=== PATIENT | female | born 1995 | race Caucasian/White ===

== ENCOUNTER 2018-05-29 18:13 | Emergency (ER) | payer MEDICAID, SELFPAY ==
[2018-05-29 18:23] VITALS: BP 110/82; PULSE 139; RESP 20; TEMP 37.6; O2SAT 99
[2018-05-29] MEDS: Ondansetron 4 MG/2 ML VIAL (18:38)
[2018-05-29 18:53] VITALS: RESP 20
--- NOTE | 2018-05-29 19:06 | W.ED.GENAD ---
Discharge Plan Disposition Patient Disposition: HOME Condition: Improving Discharge Details Chief Complaint: GenMedical Clinical Impression: Influenza, Myalgia Primary Care Provider: Robert Celis ED Provider: Samantha Romero Home Meds and New Rx's Prescriptions: Continued epinephrine [EpiPen 2-Steve] 0.3 mg/0.3 mL auto-injector 0.3 mg IM ONCE PRN (Reason: anaphylaxis) Qty: 2 RF: 0 oseltamivir [Tamiflu] 75 mg capsule 75 mg PO BID 5 Days Qty: 10 RF: 0 famotidine 40 MG tablet 40 mg PO BID 30 Days Qty: 30 RF: 5 garlic 1 EACH tablet 1 tab PO DAILY RF: 0 acetaminophen [Tylenol] 325 MG tablet 650 mg PO Q4H PRN PRNRF: 0 diphenhydramine HCl 25 MG capsule 25 mg PO PRN PRNRF: 0 No Action ondansetron HCl 4 mg tablet 4 mg PO BID-TID PRN (Reason: nausea and vomiting) Qty: 14 RF: 0 Discharge Instructions Instructions: Influenza (ED) Additional Instructions: Drink plenty of fluids and get plenty of rest. Alternate Tylenol and Motrin as needed and directed for pain. Limit your Motrin use as directed by her doctor. Follow-up with primary care doctor in 1 week for reevaluation. Return immediately to the emergency department any worsening or concerning symptoms. 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 Patient states she was seen at her primary care doctor's office Dr. Galileo stanford and was tested and diagnosed with the flu and sent home with prescription for Tamiflu. Patient is complaining of allover body pain, and her head her back her knees. Patient denies any known fever but admits to chills. Heart rate tachycardic 120s. Afebrile. Patient appears nontoxic and in no acute distress. Normal ENT exam. Lungs clear to auscultation. Abdomen soft nontender. No meningeal signs. Discussed with patient that with a flu diagnosis, she can expect myalgias and body aches for several days to a week or more. Patient states she took Tylenol today for pain. She states with her history of kidney reflux she can take Motrin but she tries to limit it to 2 doses daily. Will give a dose of Toradol, bolus IV fluids and discharge to home. 1999 -- Patient feels much better and is requesting to go home. HR improved to 110s, and she developed a fever 101.5 and was given tylenol prior to discharge. She ambulated easily out of the ED. Instructed on the importance of rest, fluids, Tylenol and Motrin. Instructed to follow-up with her primary care doctor and return here at any time if worse. test negative. HPI General Mode of arrival: ambulatory. Date/Time Provider Initiated Documentation: 05/29/18 18:55. Limitations to Documentation: no limitations. Information obtained by: patient. HPI Narrative: Pt is a 22yo F w/ a h/o kidney reflux at age 8 who was diagnosed with the flu at her PCP office today who presents for body aches. Patient states she woke up at 4 AM with tactile fevers and chills, cough and sore throat. She followed up with her PCP office and was tested and diagnosed with the flu. She states her pain is mainly in her head, back, knees but is generally all over her body. She admits to vomiting one time in the ER. Patient denies chest pain, shortness of breath, diarrhea or urinary symptoms. Patient states she took Tamiflu per her PCP and a dose of Tylenol but no Motrin today. Related Data Home Medications Medication Instructions Recorded Confirmed garlic 1 tab PO DAILY 02/14/17 05/29/18 famotidine 40 mg PO BID 30 Days #30 tab 08/15/17 05/29/18 acetaminophen [Tylenol] 650 mg PO Q4H PRN PRN 10/02/17 05/29/18 diphenhydramine HCl 25 mg PO PRN PRN 11/20/17 05/29/18 epinephrine 0.3 mg/0.3 mL 0.3 mg IM ONCE PRN #2 each 04/11/18 05/29/18 injection, auto-injector oseltamivir 75 mg capsule 75 mg PO BID 5 Days #10 cap 05/29/18 05/29/18 ondansetron HCl 4 mg tablet 4 mg PO BID-TID PRN #14 tab 05/30/18 05/30/18 Previous Rx's Medication Instructions Recorded famotidine 40 mg PO BID 30 Days #30 tab 08/15/17 epinephrine 0.3 mg/0.3 mL 0.3 mg IM ONCE PRN #2 each 04/11/18 injection, auto-injector oseltamivir 75 mg capsule 75 mg PO BID 5 Days #10 cap 05/29/18 ondansetron HCl 4 mg tablet 4 mg PO BID-TID PRN #14 tab 05/30/18 Allergies Allergy/AdvReac Type Severity Reaction Status Date / Time codeine Allergy Severe Hives Verified 05/29/18 11:55 kiwi Allergy Intermediate Verified 05/29/18 11:55 ciprofloxacin [From Cipro] AdvReac Intermediate vomiting Verified 05/29/18 11:55 General Stated Complaint: GenMedical JOSELIN: 3 Review of Systems Review of Systems All systems reviewed & are unremarkable except as noted in HPI and below Constitutional Reports as per HPI, Reports body ache(s), Denies chills and Denies fever(s) Eyes Denies blurry vision ENT Denies dizziness, Denies sore throat and Denies throat swelling Cardiovascular Denies chest pain and Denies dyspnea Respiratory Denies cough and Denies dyspnea Gastrointestinal Denies abdominal pain, Denies diarrhea and Denies vomiting Genitourinary Denies hematuria and Denies dysuria Musculoskeletal Denies back pain and Denies numbness Integumentary/Breasts Denies lesions and Denies rash Neurologic Denies dizziness, Denies focal weakness and Denies numbness Allergic/Immunologic Denies throat swelling [facility] Medical History Congenital mssgcq-cyuxwpl-dvqii reflux (Acute) Family History Mother Depression Hyperlipidemia Father Depression Brother No problems noted. Maternal Grandfather Heart disease Maternal Grandmother Heart disease Social History current occupational status: employed current occupation: [employer] pets and animals: Yes pets and animals: cat(s) and dog(s) frequency: 3-4 times per week duration: 30-45 minutes/day Smoking/Tobacco Use Status: Never alcohol intake: current alcohol intake frequency: 0-2 drinks per day Alcohol type: beer and hard liquor substance use type: does not use candis/mosque: No preference special candis needs: No Exam Const General: cooperative, healthy appearing and no acute distress HENMT Head: normal to inspection Ears: hearing grossly normal bilaterally and TM's normal bilaterally General nose exam: external nose normal Face and sinus: normal facial exam Mouth: oral mucosae normal Throat: posterior oropharynx normal Eyes General: appearance normal, both eyes and all related structures EOM: EOM intact bilaterally Neck Neck: normal visual inspection and No submandibular swelling Lymphatic: no lymphadenopathy noted Chest Chest: normal inspection of the chest and no tenderness Resp Effort & Inspection: normal respiratory effort and able to speak in complete sentences Auscultation: clear to auscultation bilaterally Cardio Rate: regular rate Rhythm: regular rhythm GI Inspection: normal to inspection Palpation: soft, not firm, not rigid and nontender Auscultation: normal bowel sounds Skin General skin exam: no rashes or lesions noted Neuro General: alert, awake, oriented x3, no meningeal signs and no focal motor deficits Cognition: normal cognition Speech: speech normal Motor: muscle tone normal throughout Sensory Exam: no sensory deficits noted Extrem General: normal to inspection, full ROM, normal capillary refill and no edema Psych Appearance: grossly normal Mental Status: mental status grossly normal Speech and Movement: speech and movement normal Affect: normal affect Course Vital Signs Temperature 99.7 F H 05/29/18 18:23 Pulse 139 H 05/29/18 18:23 Respiratory Rate 20 05/29/18 18:23 Blood Pressure 110/82 05/29/18 18:23 Pulse Oximetry 99 05/29/18 18:23 Temperature 99.7 F H 05/29/18 18:23 Temperature Source Temporal Artery Scan 05/29/18 18:23 Pulse 139 H 05/29/18 18:23 Respiratory Rate 20 05/29/18 18:53 Respiratory Effort 05/29/18 18:59 Respiratory Depth Normal 05/29/18 18:53 Respiratory Pattern Normal 05/29/18 18:53 Blood Pressure 110/82 05/29/18 18:23 Blood Pressure Position Sitting 05/29/18 18:23 Pulse Oximetry 99 05/29/18 18:23 Oxygen Delivery Method Room Air 05/29/18 18:23 Oxygen Flow Rate 0 05/29/18 18:23
[2018-05-29] MEDS: Normal Saline 1,000 ML 1000 ML IV (19:15)
[2018-05-29] MEDS: Ketorolac 30 MG/ML VIAL IVP (19:49)
[2018-05-29] MEDS: Acetaminophen 325 MG TAB 650 MG PO (20:18)
[2018-05-29 20:25] VITALS: BP 109/51; PULSE 112; RESP 18; TEMP 38.6; O2SAT 95
== END 2018-05-29 20:24 | disposition home or self-care (01) ==
PROVIDERS: Emergency Provider Physician Assistant; PCP Family Medicine
DX: J10.89 Influenza due to other identified influenza virus with other manifestations (principal); M79.18 Myalgia, other site
CPT/HCPCS: 96361; 96374; 99284; J1885; J2405

== ENCOUNTER 2018-08-27 16:40 | Outpatient (CLI) | payer MEDICAID, SELFPAY ==
--- NOTE | 2018-08-27 10:20 | DI.RAD_ITS ---
SYMPTOM/DIAGNOSIS: CONTUSION RT 5TH METACARPAL, ? FX, S69.90XA RIGHT HAND: Three views. No acute or healing fracture or dislocation is identified. No bone or joint abnormality is seen. The soft tissues are unremarkable. IMPRESSION: No acute abnormality.
== END 2018-08-27 17:00 ==
PROVIDERS: PCP Family Medicine; Visit Provider Family Medicine
DX: S60.221A Contusion of right hand, initial encounter (principal)
CPT/HCPCS: 73130

== ENCOUNTER 2020-06-25 06:17 | Emergency (ER) | payer BC, SELFPAY ==
--- NOTE | 2020-06-25 06:20 | W.ED.GENAD ---
Discharge Plan Disposition Patient Disposition: HOME Condition: Good Discharge Details Clinical Impression: Low back pain Primary Care Provider: Robert Celis ED Provider: Daniel Osorio [place] Meds and New Rx's Prescriptions: New lidocaine 5 % adhesive patch,medicated 1 patch topical DAILY Qty: 15 RF: 0 Continued epinephrine [EpiPen 2-Steve] 0.3 mg/0.3 mL auto-injector 0.3 mg IM ONCE PRN (Reason: anaphylaxis) Qty: 2 RF: 0 omeprazole magnesium [Prilosec OTC] 20 mg tablet,delayed release (DR/EC) 20 mg PO DAILY Qty: 90 RF: 3 garlic 1 EACH tablet 1 tab PO DAILY RF: 0 sulfamethoxazole-trimethoprim 800-160 mg tablet 1 tab PO Q12H RF: 0 acetaminophen [Tylenol] 325 MG tablet 650 mg PO Q4H PRN PRNRF: 0 diphenhydramine HCl 25 MG capsule 25 mg PO PRN PRNRF: 0 Discharge Instructions Instructions: Low Back Strain (ED) Additional Instructions: Continue Tylenol for pain. Try the lidocaine patches, moist heat, stretching and gentle massage. Follow-up with primary care next week if not improving. Return to ED for bladder or bowel dysfunction, numbness, weakness, abdominal pain, fever. Referrals: Robert Celis [Primary Care Provider] - Medical Decision Making Patient with no CVAT. Pain is much lower and muscular in nature. No spinal tenderness. No neuro symptoms. Continue Tylenol. We will try lidocaine patches. Moist heat, stretching, gentle massage. Follow-up with primary care next week if not improving. Return to ED for any fever, abdominal pain, neurologic changes. HPI General Mode of arrival: ambulatory. Date/Time Provider Initiated Documentation: 06/25/20 06:19. Limitations to Documentation: no limitations. Information obtained by: patient and RN notes reviewed. HPI Narrative: Patient presents to the ED with low back pain. Patient reports slipping and falling about a week ago. She has had increased pain across the lower back that is worse with movement and prolonged sitting. She is also being treated for UTI and is a little concerned that the back pain is related to kidney problems. She denies any fever, abdominal pain, vomiting. She denies any bladder or bowel dysfunction, numbness, weakness. Pain is low across the pelvis brim and worse on the left. Related Data Home Medications Medication Instructions Recorded Confirmed garlic 1 tab PO DAILY 02/14/17 06/25/20 acetaminophen [Tylenol] 650 mg PO Q4H PRN PRN 10/02/17 06/25/20 diphenhydramine HCl 25 mg PO PRN PRN 11/20/17 06/25/20 epinephrine 0.3 mg/0.3 mL 0.3 mg IM ONCE PRN #2 each 04/11/18 06/25/20 injection, auto-injector omeprazole magnesium 20 mg 20 mg PO DAILY #90 tab 06/18/20 06/25/20 tablet,delayed release lidocaine 1 patch TOPICAL DAILY #15 ea 06/25/20 sulfamethoxazole-trimethoprim 1 tab PO Q12H 06/25/20 06/25/20 Previous Rx's Medication Instructions Recorded epinephrine 0.3 mg/0.3 mL 0.3 mg IM ONCE PRN #2 each 04/11/18 injection, auto-injector omeprazole magnesium 20 mg 20 mg PO DAILY #90 tab 06/18/20 tablet,delayed release lidocaine 1 patch TOPICAL DAILY #15 ea 06/25/20 Allergies Allergy/AdvReac Type Severity Reaction Status Date / Time codeine Allergy Severe Hives Verified 06/25/20 06:29 kiwi Allergy Intermediate Verified 06/25/20 06:29 ciprofloxacin [From Cipro] AdvReac Intermediate vomiting Verified 06/25/20 06:29 General JOSELIN: 3 Review of Systems Narrative: As documented in HPI otherwise negative as below. Const: no fever, chills, weakness Resp: no cough, SOB, pleuritic pain CV: no CP, diaphoresis, edema, syncope GI: no abdominal pain, nausea, vomiting, diarrhea Neuro: no headache, numbness, focal weakness, confusion [facility] Medical History Congenital zopuhd-fgsodko-czxxo reflux Migraine with aura and without status migrainosus Family History (Updated 03/15/19 @ 09:15 by Neal Meade) Mother Depression Hyperlipidemia Father Depression Brother Asthma ADHD Maternal Grandfather Heart disease Maternal Grandmother Heart disease Brother Autism Paternal Grandfather No problems noted. Paternal Grandmother Glaucoma Social History Smoking/Tobacco Use Status: Never Smoking risk assessment performed?: Yes Alcohol Intake: current Alcohol Intake frequency: holidays/special occasions only Alcohol type: beer and hard liquor Substance use type: does not use Caregiver/Support person: No Household members: spouse and significant other Housing: house Communication Needs: None current occupation: [employer] Pets and animals: Yes Pets and animals: cat(s) and dog(s) Sexually active: Yes Do you think of yourself as: straight/heterosexual Current gender identity: female What is your relationship status?: living with partner How often do you talk on the phone with friends or family?: three or more times per week How often do you get together with friends or relatives?: three or more times per week How often do you attend scientology or yarsani services?: decline to answer Do you belong to any clubs or organized social groups?: yes Panel score (0-1 are the most socially isolated patients): 3 What type of physical activity do you participate in: walking Duration: 30-45 minutes/day Frequency: 3-4 times per week Kendal/Jain: No preference Special kendal needs: No Seatbelt use: always Helmet use: Yes Helmet use: always Drive intox or ride w/intox locomotive driver: No Do you feel safe at home: Yes Do you feel safe in your relationship?: Yes Exam Narrative Exam Narrative: Const: WDWN female in NAD. HEENT: NC/AT. Normal facial exam. Eyes: Normal conjunctiva and sclera. Neck: Supple. Trachea midline. Lungs: Normal respiratory effort. Back: No CVAT. No midline spinal tenderness. Tenderness across the lower lumbar region left greater than right. Decreased range of motion due to pain. No bruising noted. Neuro: A+O x 3. Normal speech, mentation, gait. Cranial nerves II - XII grossly intact. No gross motor or sensory deficit.
[2020-06-25 06:22] VITALS: BP 139/82; PULSE 98; RESP 14; TEMP 36.5; O2SAT 96
[2020-06-25] MEDS: Lidocaine 5% Patch 1 PATCH TP (06:48)
== END 2020-06-25 06:55 | disposition home or self-care (01) ==
PROVIDERS: Emergency Provider Emergency Medicine; PCP Family Medicine
DX: M54.5 Low back pain (principal)
CPT/HCPCS: 99282

== ENCOUNTER 2020-07-19 10:07 | Emergency (ER) | payer BC, SELFPAY ==
[2020-07-19 10:12] VITALS: BP 139/92; PULSE 120; RESP 16; TEMP 36.8; O2SAT 97
--- NOTE | 2020-07-19 10:25 | W.ED.GENAD ---
Discharge Plan Disposition Patient Disposition: HOME Condition: Improving Discharge Details Clinical Impression: Pyelonephritis Primary Care Provider: Robert Celis ED Provider: Mendoza Gomez Home Meds and New Rx's Prescriptions: New cephalexin 500 mg capsule 500 mg PO TID 7 Days Qty: 21 RF: 0 Continued epinephrine [EpiPen 2-Steve] 0.3 mg/0.3 mL auto-injector 0.3 mg IM ONCE PRN (Reason: anaphylaxis) Qty: 2 RF: 0 omeprazole magnesium [Prilosec OTC] 20 mg tablet,delayed release (DR/EC) 20 mg PO DAILY Qty: 90 RF: 3 garlic 1 EACH tablet 1 tab PO DAILY RF: 0 acetaminophen [Tylenol] 325 MG tablet 650 mg PO Q4H PRN PRNRF: 0 diphenhydramine HCl 25 MG capsule 25 mg PO PRN PRNRF: 0 Discharge Instructions Instructions: Urinary Tract Infection in Women (ED) Additional Instructions: Home to rest today. Small, frequent sips of fluids to maintain good hydration. Please take Keflex as prescribed. Return if you have a fever, vomiting, or any other acute concerns. Discharge Data Discharge Date/Time-TO BE ENTERED AT DEPARTURE: 07/19/20 13:00 Medical Decision Making 25-year-old female presents from home with hours of achy back pain similar to previous urinary tract infections. She states she had a fever yesterday. She will note that she was tested for Covid yesterday due to close family member contact tracing. She arrives slightly tachycardic but pleasant and in no significant distress. She does have flank tenderness to percussion on exam. Screening laboratories including lactic acid and urinalysis obtained. Patient given ketorolac and 1 L of fluids. Consistent with developing pyelonephritis. Patient improved following fluids and ketorolac. She was given ceftriaxone 1 g and will be placed on Keflex. She understands homecare as well as return precautions. Lab Data Lab results reviewed: Yes I reviewed the patient's lab results. Labs: Laboratory Results - last 24 hr 07/19/20 07/19/20 07/19/20 10:38 10:38 10:38 WBC 4.50 RBC 4.91 Hgb 14.8 Hct 44.0 MCV 89.6 MCH 30.1 MCHC 33.6 RDW 11.5 L Plt Count 228 MPV 9.4 Immature Gran % 0.2 Neutrophils % 72.3 Lymphocytes % 13.1 Monocytes % 13.3 Eosinophils % 0.2 Basophils % 0.9 Nucleated RBC % 0 Absolute Neutrophils 3.25 Absolute Lymphocytes 0.59 L Absolute Monocytes 0.60 Absolute Eosinophils 0.01 Absolute Basophils 0.04 VBG Lactate 1.9 H Sodium 139 Potassium 3.5 Chloride 101 Carbon Dioxide 26.2 Anion Gap 11.8 H BUN 12 Creatinine 1.4 H Estimated GFR/1.73 m2 45.11 Glucose 129 H Calcium 8.8 Urine Color Urine Clarity Urine pH Ur Specific [place] Urine Protein Urine Ketones Urine Blood Urine Nitrite Urine Bilirubin Urine Urobilinogen Ur Leukocyte Esterase Urine RBC Urine WBC Ur Epithelial Cells Urine Crystals Urine Bacteria Urine Mucus Urine Other Ur Culture Indicated? Urine Glucose 07/19/20 11:25 WBC RBC Hgb Hct MCV MCH MCHC RDW Plt Count MPV Immature Gran % Neutrophils % Lymphocytes % Monocytes % Eosinophils % Basophils % Nucleated RBC % Absolute Neutrophils Absolute Lymphocytes Absolute Monocytes Absolute Eosinophils Absolute Basophils VBG Lactate Sodium Potassium Chloride Carbon Dioxide Anion Gap BUN Creatinine Estimated GFR/1.73 m2 Glucose Calcium Urine Color Yellow Urine Clarity Sl cloudy Urine pH 6.0 Ur Specific [place] 1.015 Urine Protein Negative Urine Ketones Negative Urine Blood Negative Urine Nitrite Negative Urine Bilirubin Negative Urine Urobilinogen 0.2 Ur Leukocyte Esterase Small H Urine RBC Not Applicable Urine WBC Not Applicable Ur Epithelial Cells Many Urine Crystals Not Applicable Urine Bacteria Not Applicable Urine Mucus Not Applicable Urine Other Many transitional Ur Culture Indicated? No/sq. contamination Urine Glucose Negative HPI General Mode of arrival: ambulatory. Date/Time Provider Initiated Documentation: 07/19/20 10:08. Limitations to Documentation: no limitations. Information obtained by: patient. History of Present Illness 25 year old F presents to the emergency department with the chief complaint of Left flank pain and body ache, Quality is described as aching, dull and constant, and is localized to the back and left. Patient started experiencing this hour(s) and it has been constant. No relieving factors improve symptom(s), No exacerbating factors reported . Patient notes fever/chills; denies cough, nausea/vomiting and shortness of breath. Patient did receive the following treatments prior to arrival, none Related Data Home Medications Medication Instructions Recorded Confirmed garlic 1 tab PO DAILY 02/14/17 07/19/20 acetaminophen [Tylenol] 650 mg PO Q4H PRN PRN 06/04/18 03/21/21 diphenhydramine HCl 25 mg PO PRN PRN 11/20/17 07/19/20 epinephrine 0.3 mg/0.3 mL 0.3 mg IM ONCE PRN #2 each 04/11/18 07/19/20 injection, auto-injector omeprazole magnesium 20 mg 20 mg PO DAILY #90 tab 06/18/20 07/19/20 tablet,delayed release cephalexin 500 mg PO TID 7 Days #21 cap 07/19/20 Previous Rx's Medication Instructions Recorded epinephrine 0.3 mg/0.3 mL 0.3 mg IM ONCE PRN #2 each 04/11/18 injection, auto-injector omeprazole magnesium 20 mg 20 mg PO DAILY #90 tab 06/18/20 tablet,delayed release cephalexin 500 mg PO TID 7 Days #21 cap 07/19/20 Allergies Allergy/AdvReac Type Severity Reaction Status Date / Time codeine Allergy Severe Hives Verified 07/19/20 10:16 kiwi Allergy Intermediate Verified 07/19/20 10:16 ciprofloxacin [From Cipro] AdvReac Intermediate vomiting Verified 07/19/20 10:16 General Stated Complaint: Urinary JOSELIN: 3 Review of Systems Narrative: Exposure to Covid positive family members. No cough or shortness of breath. Fever yesterday. Body ache. No vomiting or headache. 7 systems reviewed and otherwise negative COUNTS INCLUDE 234 BEDS AT THE [facility] Medical History Congenital btgwhf-pwfxsrf-fsbob reflux Migraine with aura and without status migrainosus Family History Mother Depression Hyperlipidemia Father Depression Brother Asthma ADHD Maternal Grandfather Heart disease Maternal Grandmother Heart disease Brother Autism Paternal Grandfather No problems noted. Paternal Grandmother Glaucoma Social History Smoking/Tobacco Use Status: Never Smoking risk assessment performed?: Yes Alcohol Intake: current Alcohol Intake frequency: holidays/special occasions only Alcohol type: beer and hard liquor Drug use: Never Substance use type: does not use Caregiver/Support person: No Household members: spouse and significant other Housing: house Communication Needs: None current occupation: [employer] Pets and animals: Yes Pets and animals: cat(s) and dog(s) Sexually active: Yes Do you think of yourself as: straight/heterosexual Current gender identity: female What is your relationship status?: living with partner How often do you talk on the phone with friends or family?: three or more times per week How often do you get together with friends or relatives?: three or more times per week How often do you attend pentecostalism or zoroastrian services?: decline to answer Do you belong to any clubs or organized social groups?: yes Panel score (0-1 are the most socially isolated patients): 3 What type of physical activity do you participate in: walking Duration: 30-45 minutes/day Frequency: 3-4 times per week Kendal/Confucianism: No preference Special kendal needs: No Seatbelt use: always Helmet use: Yes Helmet use: always Drive intox or ride w/intox team cdl driver: No Do you feel safe at home: Yes Do you feel safe in your relationship?: Yes Exam Narrative Exam Narrative: GEN: awake, alert, oriented 3. Pleasant, well groomed, interactive. HEAD: Normocephalic, atraumatic ENT: Mucous membranes moist, oropharynx unremarkable, External ear exam unremarkable EYES: PERRL, EOMI NECK: Full ROM, no DICKSON, no menigismus CHEST/RESP: Nontender, clear to auscultation bilateral, no wheeze/rhonchi/rales CARDIOVASCULAR: Regular and tachycardic, no murmur, rub tomy. 2+ Rad pulse bilateral ABDOMEN: Soft, nontender, no mass. +Bowel sounds. Back: Left greater than right flank tenderness to percussion EXT: Full ROM, no edema, no rash Neuro: Grossly normal neurologic exam, conversant, interactive. Psych: Speech fluent, thoughts congruent, affect normal Course Vital Signs Vital signs: Vital Signs Temperature 36.8 C 07/19/20 10:12 Pulse 120 H 07/19/20 10:12 Respiratory Rate 16 07/19/20 10:12 Blood Pressure 139/92 H 07/19/20 10:12 Pulse Oximetry 97 07/19/20 10:12 Temperature 36.8 C 07/19/20 10:12 Temperature Source Skin 07/19/20 10:12 Pulse 120 H 07/19/20 10:12 Respiratory Rate 16 07/19/20 10:12 Respiratory Effort 07/19/20 10:23 Blood Pressure 139/92 H 07/19/20 10:12 Blood Pressure Position Sitting 07/19/20 10:12 Pulse Oximetry 97 07/19/20 10:12 Oxygen Delivery Method Room Air 07/19/20 10:12 Oxygen Flow Rate 0 07/19/20 10:12 Pain Level 7 07/19/20 10:12
[2020-07-19] MEDS: Normal Saline 1,000 ML 1000 ML IV ×2 (10:40→11:30)
[2020-07-19] MEDS: Ketorolac 15 MG/ML VIAL IVP (10:41)
[2020-07-19 10:42] LABS: Lactate 1.9 mmol/L (0.6-1.4)
[2020-07-19 10:44] LABS: Abs Immature Grans 0.01 10^3/uL (0.0-0.06); Absolute Basophil Count 0.04 10^3/uL (0.0-0.2); Absolute Eosinophil Count 0.01 10^3/uL (0.0-0.7); Absolute Lymphocyte Count 0.59 10^3/uL (1.2-3.4); Absolute Neutrophil Count 3.25 10^3/uL (1.2-6.7); Basophils % 0.9; Eosinophils % 0.2; HGB 14.8 g/dL (11.2-15.7); Immature Grans % 0.2; Lymphocytes % 13.1; MCH 30.1 pg (27.0-33.0); MCHC 33.6 % (32.0-36.0); MCV 89.6 fL (80-95); MPV 9.4 fL (8.0-11.0); Monocytes % 13.3; Neutrophils % 72.3; Nucleated RBC 0 %; Platelet Count 228 10^3/uL (130-400); RBC 4.91 10^6/uL (3.93-5.22); RDW 11.5 % (11.7-14.6); RDW-SD 37.9 fL
[2020-07-19 10:54] LABS: Anion Gap 11.8 mmol/L (3-11); BUN 12 mg/dL (7-18); CO2 26.2 mmol/L (21.0-32.0); CREATININE 1.4 mg/dL (0.55-1.02); Calcium 8.8 mg/dL (8.5-10.1); Chloride 101 mmol/L (98-107); Estimated GFR 45.11 (mL/min/1.73m2); Glucose 129 mg/dL (74-106); Potassium 3.5 mmol/L (3.5-5.1); Sodium 139 mmol/L (136-145)
[2020-07-19 11:34] LABS: Bilirubin Negative (Negative); Blood Negative (Negative); Clarity Sl Cloudy (Clear); Glucose Negative (Negative); Ketones Negative (Negative); Leukocyte Esterase Small (Negative); Nitrite Negative (Negative); Specific Gravity 1.015 (1.005-1.025); Urobilinogen 0.2 EU/dL (Up TO 0.2)
[2020-07-19 11:44] LABS: Epithelial Cells Many HPF (Negative)
[2020-07-19 11:45] LABS: C & S Indicated? No/Sq. Contamination
[2020-07-19] MEDS: cefTRIAXone 1 GM/50 ML BAG IVPB (11:57)
[2020-07-19 12:03] VITALS: BP 117/63; PULSE 86; RESP 16; TEMP 36.8; O2SAT 97
[2020-07-19 12:37] VITALS: BP 117/63; PULSE 86; RESP 16; TEMP 36.8; O2SAT 97
== END 2020-07-19 13:00 | disposition home or self-care (01) ==
PROVIDERS: Emergency Provider Emergency Medicine; PCP Family Medicine
DX: N12 Tubulo-interstitial nephritis, not specified as acute or chronic (principal)
CPT/HCPCS: 80048; 81025; 96361; 96365; 96375; 99284; 81003; 81015; 83605; 85025; 99283; J0696; J1885; J3490

== ENCOUNTER 2020-09-08 09:16 | Emergency (ER) | payer OTHER, SELFPAY ==
[2020-09-08] VITALS (32 sets, daily range): BP systolic 117–134; BP diastolic 77–90; PULSE 60–79; RESP 15–27; TEMP 36.6; O2SAT 96–100
--- NOTE | 2020-09-08 09:15 | RT.EKG_ITS ---
APPROVED REPORT Exam: Resting ECG Reason for Exam: chest pain Patient Location: E HR:61 bpm ECG Measurements Heart Rate 61 AXIS HI 142 P 26 QRSd 78 QRS 50 QT 390 T 21 QTc 394 Conclusion Sinus rhythm...normal P axis, V-rate 60- 99
--- NOTE | 2020-09-08 09:30 | DI.CT_ITS ---
Exam(s) CT CHEST PE CTA EXAM: CT CHEST PE CTA CLINICAL HISTORY: chest pain. TECHNIQUE: Imaging Protocol: Axial CT angiography was performed with multi-slice acquisition and mu lti-planar and/or 3D reconstructions. CONTRAST MATERIAL: Intravenous: Omnipaque 350 Contrast volume:structured data in ml COMPARISON: No exams were available for comparison FINDINGS: CT angiography of the chest was performed with intravenous infusion of 100 cc of Omnipaque 350. The lungs are clear. No pleural effusion. Tracheobronchial tree appears intact. No evidence of pulmonary embolic disease. Thoracic aorta is of normal diameter, no thoracic aortic an eurysm or dissection, major branch vessels appear intact. No mediastinal or hilar adenopathy. Images obtained through the upper abdomen show unremarkable appearance of the visualized portions of the liver, spleen, pancreas, adrenals, and kidneys. IMPRESSION: Negative CT angiogram of the chest. No evidence of pulmonary embolic disease. RADIATION DOSE DELIVERED: 374.79mGy.cm Total DLP 374.79mGy.cm Total DLP 374.79mGy.cm Total DLP DATA REPOSITORY: All CT scans at this facility are submitted to the National Radiology Data Registry (NRDR) Dose Index Registry (DIR) with the [employer] (A[employer]). RADIATION OPTIMIZATION: All CT scans at this facility use at least one of these dose optimization te chniques: automated exposure control; mA and/or kV adjustment per patient size (includes targeted exa ms where dose is matched to clinical indication); or iterative reconstruction.
[2020-09-08 10:00] LABS: Abs Immature Grans 0.01 10^3/uL (0.0-0.06); Absolute Basophil Count 0.04 10^3/uL (0.0-0.2); Absolute Monocyte Count 0.32 10^3/uL (0.1-0.8); Absolute Neutrophil Count 3.04 10^3/uL (1.2-6.7); Basophils % 0.8; Eosinophils % 1.9; HCT 42.2 % (36.0-46.0); HGB 14.6 g/dL (11.2-15.7); Immature Grans % 0.2; Lymphocytes % 32.6; MCH 30.2 pg (27.0-33.0); MCHC 34.6 % (32.0-36.0); MCV 87.2 fL (80-95); MPV 9.6 fL (8.0-11.0); Monocytes % 6.1; Neutrophils % 58.4; Nucleated RBC 0 %; Platelet Count 267 10^3/uL (130-400); RBC 4.84 10^6/uL (3.93-5.22); RDW 11.9 % (11.7-14.6); RDW-SD 38.2 fL; WBC 5.21 10^3/uL (4.4-10.8)
[2020-09-08] MEDS: Acetaminophen 325 MG TAB 650 MG PO (10:07)
--- NOTE | 2020-09-08 10:10 | ED.GENADUL_ITS ---
Discharge Plan Disposition Patient Disposition: HOME Condition: Stable Discharge Details Clinical Impression: Chest pain Primary Care Provider: Robert Celis ED Provider: Eleazar Lentz Home Meds and New Rx's Prescriptions: Continued epinephrine [EpiPen 2-Steve] 0.3 mg/0.3 mL auto-injector 0.3 mg IM ONCE PRN (Reason: anaphylaxis) Qty: 2 RF: 0 omeprazole magnesium [Prilosec OTC] 20 mg tablet,delayed release (DR/EC) 20 mg PO DAILY Qty: 90 RF: 3 garlic 1 EACH tablet 1 tab PO DAILY RF: 0 acetaminophen [Tylenol] 325 MG tablet 650 mg PO Q4H PRN PRNRF: 0 diphenhydramine HCl 25 MG capsule 25 mg PO PRN PRNRF: 0 Discharge Instructions Instructions: Chest Pain (ED) Additional Instructions: You have a Covid test that was performed today and is pending. Please maintain home isolation and quarantine until test result is available and negative. Please contact your primary care physician to arrange follow-up. Call today. Return to the ER immediately for any worsening or new concerning symptoms. Stand Alone Forms: Work Release Referrals: Robert Celis [Primary Care Provider] - Medical Decision Making 1015 --25-year-old female here with chest pain intermittent for the past 3 weeks and constant and severe today. Screening ECG was reviewed and interpreted by me: No STEMI, sinus rhythm 61 bpm normal axis. Consider acute life-threatening pulmonary embolism. Plan to obtain CT of the chest. Patient has recurrent arthralgias similar to when she had active Covid in June. Consider long Covid or persistent/recurrent infection. Will obtain Covid testing. Patient requested Tylenol for headache. 1300 --labs reviewed and nondiagnostic. Initial troponin negative. Plan for delta troponin CT of the chest was interpreted by radiology: Negative. 1320 --repeat delta troponin negative and unchanged. Patient reassessed: She has remained hemodynamically stable with no arrhythmias noted while being monitored here in the emergency department for the past few hours. I offered additional therapeutics including Pepcid and Mylanta to treat potential GI etiology as patient does have history of GERD. Patient declined further treatment Plan for discharge with outpatient follow-up. Covid testing is pending at time of discharge. I think it is unlikely that she has ongoing Covid given recent disease in June and beginning of July. Consider long Covid? Disposition decision was made weighing the risks and benefits of hospitalization versus outpatient treatment, the risk for further decompensation, and the patient's wishes. The patient was stable and requested discharge. Prior to discharge, my usual and customary return precautions were reviewed with the patient - this included follow-up instructions and reason to return to the emergency department if condition worsens, does not improve as expected, or other new concerns arise. HPI General Mode of arrival: ambulatory . Date/Time Provider Initiated Documentation: 09/08/20 09:23 . Limitations to Documentation: no limitations . Information obtained by: patient . HPI Narrative: 25yo f with history of migraine RESENDIZ presents with chief complaint of chest pain. Patient notes intermittent retrosternal chest pain for the past 3 weeks. Pain is constant today since waking around 6 AM and more severe today. Pain is worse with certain positions including when she goes to sit up and improved lying flat. Pain is described as sharp. Patient denies associated leg swelling or calf pain. Patient does have mild frontal headache. She does note that she tested positive for Covid July 26. Symptoms did improve until today she notes she has had diffuse body aches. No fever. No persistent cough. Related Data Home Medications Medication Instructions Recorded Confirmed garlic 1 tab PO DAILY 02/14/17 09/08/20 acetaminophen [Tylenol] 650 mg PO Q4H PRN PRN 10/02/17 09/08/20 diphenhydramine HCl 25 mg PO PRN PRN 11/20/17 09/08/20 epinephrine 0.3 mg/0.3 mL 0.3 mg IM ONCE PRN #2 each 04/11/18 09/08/20 injection, auto-injector omeprazole magnesium 20 mg 20 mg PO DAILY #90 tab 06/18/20 09/08/20 tablet,delayed release Previous Rx's Medication Instructions Recorded epinephrine 0.3 mg/0.3 mL 0.3 mg IM ONCE PRN #2 each 04/11/18 injection, auto-injector omeprazole magnesium 20 mg 20 mg PO DAILY #90 tab 06/18/20 tablet,delayed release Allergies Allergy/AdvReac Type Severity Reaction Status Date / Time codeine Allergy Severe Hives Verified 09/08/20 09:24 kiwi Allergy Intermediate Verified 09/08/20 09:24 ciprofloxacin [From Cipro] AdvReac Intermediate vomiting Verified 09/08/20 09:24 General Stated Complaint: Chest Pain JOSELIN: 2 Review of Systems All systems reviewed & are unremarkable except as noted in HPI and below Constitutional Constitutional: Reports body ache(s) and Denies fever(s) Cardiovascular Cardiovascular: Reports chest pain and Denies dyspnea Respiratory Respiratory: Denies dyspnea PFS Medical History Congenital yagebh-ypurkph-krsvg reflux Migraine with aura and without status migrainosus Family History Mother Depression Hyperlipidemia Father Depression Brother Asthma ADHD Maternal Grandfather Heart disease Maternal Grandmother Heart disease Brother Autism Paternal Grandfather No problems noted. Paternal Grandmother Glaucoma Social History Smoking/Tobacco Use Status: Never Smoking risk assessment performed?: Yes Alcohol Intake: current Alcohol Intake frequency: holidays/special occasions only Alcohol type: beer and hard liquor Drug use: Never Substance use type: does not use Caregiver/Support person: No Household members: spouse and significant other Housing: house Communication Needs: None current occupation: [employer] Pets and animals: Yes Pets and animals: cat(s) and dog(s) Sexually active: Yes Do you think of yourself as: straight/heterosexual Current gender identity: female What is your relationship status?: living with partner How often do you talk on the phone with friends or family?: three or more times per week How often do you get together with friends or relatives?: three or more times per week How often do you attend hindu or christian services?: decline to answer Do you belong to any clubs or organized social groups?: yes Panel score (0-1 are the most socially isolated patients): 3 What type of physical activity do you participate in: walking Duration: 30-45 minutes/day Frequency: 3-4 times per week Kendal/Anabaptist: No preference Special kendal needs: No Seatbelt use: always Helmet use: Yes Helmet use: always Drive intox or ride w/intox 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 Do you feel safe at home: Yes Do you feel safe in your relationship?: Yes Exam Const General: cooperative and no acute distress HENMT Head: normocephalic and atraumatic Mouth: moist mucous membranes Eyes Conjunctivae: normal conjunctivae Sclera: normal sclerae Neck Neck: trachea midline and supple Resp Auscultation: clear to auscultation bilaterally, no rales, no rhonchi and no wheezes Cardio Rate: regular rate and not tachycardic Rhythm: regular rhythm GI Palpation: soft, not firm, no guarding, no masses, not rigid and nontender Skin General skin exam: no rashes or lesions noted Neuro General: patient alert, patient awake, patient oriented x3 and tone normal Extrem General: no edema Psych Appearance: grossly normal Mental Status: mental status grossly normal Course Vital Signs Vital signs: Vital Signs Temperature 36.6 C 09/08/20 09:23 Pulse 79 09/08/20 09:23 Respiratory Rate 18 09/08/20 09:23 Blood Pressure 133/89 09/08/20 09:23 Pulse Oximetry 96 09/08/20 09:23 Temperature 36.6 C 09/08/20 09:23 Temperature Source Skin 09/08/20 09:23 Pulse 66 09/08/20 09:46 Pulse 62 09/08/20 09:46 Respiratory Rate 19 09/08/20 09:46 Respiratory Effort Non-Labored 09/08/20 09:29 Respiratory Depth Normal 09/08/20 09:29 Respiratory Pattern Normal 09/08/20 09:29 Blood Pressure 121/87 09/08/20 09:46 Blood Pressure Mean 94 09/08/20 09:46 Blood Pressure Position Sitting 09/08/20 09:23 Pulse Oximetry 97 09/08/20 09:46 Oxygen Delivery Method Room Air 09/08/20 09:23 Oxygen Flow Rate 0 09/08/20 09:23 Pain Level 8 09/08/20 09:23 Lab/Test Results Lab/Test Results: Laboratory Tests Range/Units 09/08/20 09:38 WBC (4.4-10.8) 10^3/uL 5.21 RBC (3.93-5.22) 10^6/uL 4.84 Hgb (11.2-15.7) g/dL 14.6 Hct (36.0-46.0) % 42.2 MCV (80-95) fL 87.2 MCH (27.0-33.0) pg 30.2 MCHC (32.0-36.0) % 34.6 RDW (11.7-14.6) % 11.9 Plt Count (130-400) 10^3/uL 267 MPV (8.0-11.0) fL 9.6 Immature Gran % 0.2 Neutrophils % 58.4 Lymphocytes % 32.6 Monocytes % 6.1 Eosinophils % 1.9 Basophils % 0.8 Nucleated RBC % % 0 Absolute Neutrophils (1.2-6.7) 10^3/uL 3.04 Absolute Lymphocytes (1.2-3.4) 10^3/uL 1.70 Absolute Monocytes (0.1-0.8) 10^3/uL 0.32 Absolute Eosinophils (0.0-0.7) 10^3/uL 0.10 Absolute Basophils (0.0-0.2) 10^3/uL 0.04
[2020-09-08 10:14] LABS: ALT 25 U/L (14-59); AST 14 U/L (15-37); Albumin 4.2 g/dL (3.4-5.0); Alkaline Phosphatase 75 U/L (46-116); BUN 18 mg/dL (7-18); Bilirubin, Total 0.3 mg/dL (0.2-1.0); CREATININE 1.1 mg/dL (0.55-1.02); Chloride 103 mmol/L (98-107); Estimated GFR 59.58 (mL/min/1.73m2); Glucose 93 mg/dL (74-106); Potassium 3.9 mmol/L (3.5-5.1); Sodium 140 mmol/L (136-145); Total Protein 7.9 g/dL (6.4-8.2)
[2020-09-08 10:15] LABS: Troponin I < 0.05 ng/mL (<0.06)
[2020-09-08] MEDS: Omnipaque 350 MG/ML 100 ML BTL IJ (10:47)
[2020-09-08] MEDS: Normal Saline - Diluent 50 ML VIAL IV (10:49)
[2020-09-08 13:12] LABS: Troponin I < 0.05 ng/mL (<0.06)
[2020-09-09 16:05] LABS: COVID-19 RT-PCR UVMMC Result Negative (Negative)
--- NOTE | 2020-09-09 17:09 | NUR.NOTE ---
contacted patient and after verifying her identity, relayed negative covid test results.
== END 2020-09-08 13:32 | disposition home or self-care (01) ==
PROVIDERS: Emergency Provider Student in an Organized Health Care Education/Training Program; PCP Family Medicine
DX: R07.89 Other chest pain (principal); Z86.16 Personal history of COVID-19; Z03.818 Encounter for observation for suspected exposure to other biological agents ruled out
CPT/HCPCS: 36415; 71275; 80053; 93005; 99285; U0003; 84484; 85025; 93010; J3490

== ENCOUNTER 2020-09-23 13:09 | Outpatient (REF) | payer OTHER, SELFPAY ==
[2020-09-24 11:40] LABS: COVID-19 RT-PCR UVMMC Result Negative (Negative)
== END 2020-09-23 13:10 | disposition home or self-care (01) ==
LOC: NCHCN 13:09
PROVIDERS: PCP Nurse Practitioner Family; Visit Provider Physician Assistant Medical
DX: J02.9 Acute pharyngitis, unspecified (principal); Z20.822 Contact with and (suspected) exposure to COVID-19
CPT/HCPCS: U0003; 87070

== ENCOUNTER 2020-09-24 08:03 | Emergency (ER) | payer OTHER, SELFPAY ==
[2020-09-24 08:13] VITALS: BP 143/85; PULSE 81; RESP 20; TEMP 37.1; O2SAT 98
--- NOTE | 2020-09-24 08:36 | W.ED.GENAD ---
Discharge Plan Disposition Patient Disposition: HOME Condition: Stable Discharge Details Clinical Impression: Pharyngitis Primary Care Provider: Levy Mendoza ED Provider: Samantha Romero Home Meds and New Rx's Prescriptions: New amoxicillin 500 mg tablet 500 mg PO BID 10 Days Qty: 20 RF: 0 Continued epinephrine [EpiPen 2-Steve] 0.3 mg/0.3 mL auto-injector 0.3 mg IM ONCE PRN (Reason: anaphylaxis) Qty: 2 RF: 0 omeprazole magnesium [Prilosec OTC] 20 mg tablet,delayed release (DR/EC) 20 mg PO DAILY Qty: 90 RF: 3 garlic 1 EACH tablet 1 tab PO DAILY RF: 0 acetaminophen [Tylenol] 325 MG tablet 650 mg PO Q4H PRN PRNRF: 0 diphenhydramine HCl 25 MG capsule 25 mg PO PRN PRNRF: 0 Discharge Instructions Instructions: Pharyngitis (ED) Additional Instructions: Your sore throat may be due to a viral infection which is best treated with supportive care including fluids, rest, uynv-fqt-xvptbyc cough and cold medication, and Tylenol and Motrin, etc. A viral infection can progress to a bacterial infection which is treated with antibiotics. Your rapid strep test today was negative. Your swab test has been sent for a throat culture to rule out other types of bacterial sore throat. Drink plenty of fluids and get plenty of rest. Alternate tylenol and motrin as needed and directed for pain. If your symptoms do not improve or worsen over the next 1-2 days, you can consider starting the antibiotics. Follow-up with your primary care doctor in 1 week. Return to the emergency department with any worsening or new concerning symptoms, such as fever, worsening sore throat or any other concerns. Stand Alone Forms: Work Release Discharge Data Discharge Physician: Samantha Romero Medical Decision Making 25-year-old female who recovered from Covid 2 months ago, presents for sore throat for the past 4 days. She had a rapid strep test negative yesterday and has a Covid swab and throat culture pending from the urgent care. She appears nontoxic and comfortable. She is afebrile. Her oropharynx is edematous with no significant erythema or exudates. Her uvula is midline. No drooling, trismus or submandibular swelling. No lymphadenopathy. Lungs clear to auscultation bilaterally. Rapid strep test done and negative. Differential diagnosis includes viral pharyngitis, bacterial pharyngitis, allergies. History and presentation does not appear consistent with Covid. Patient refused test. She states she had her period 2 weeks ago and denies . Considering patient's pain with swallowing, will give a dose of Decadron p.o. Do not see indication for labs or imaging at this time. Discussed with patient that her symptoms could be viral in nature, or another possible form of strep. Advised that her throat culture will take a few days for result. She is advised to follow-up with urgent care for results of her throat culture and Covid swab. Will give a prescription for antibiotics to start if her symptoms do not improve or worsen over the next few days. I discussed that taking antibiotics unnecessarily can result in antibiotic resistance. Advised to follow up with the primary care doctor for re-evaluation. Usual and customary return precautions given prior to discharge. Medical Records Medical records reviewed: Yes I reviewed the patient's medical records. HPI General Mode of arrival: ambulatory. Date/Time Provider Initiated Documentation: 09/24/20 08:09. Limitations to Documentation: no limitations. Information obtained by: patient. HPI Narrative: Patient is a 25-year-old female presents to the ED with a complaint of sore throat for the past 4 days. Patient has a fever 101 4 days ago but states not since then. She has not taken any Tylenol or ibuprofen today. She states her sore throat is constant, but worse with swallowing. She also admits to burning feeling in her ears but denies any significant pain. She states she occasionally has a cough which makes her sore throat pain worse but denies any sputum production. She denies any neck pain, shortness of breath. Of note, patient had Covid 2 months ago. She was also seen at the urgent care yesterday for her symptoms this week and had a rapid strep test which was negative and a Covid swab which is still pending. Related Data Home Medications Medication Instructions Recorded Confirmed garlic 1 tab PO DAILY 02/14/17 09/24/20 acetaminophen [Tylenol] 650 mg PO Q4H PRN PRN 10/02/17 09/24/20 diphenhydramine HCl 25 mg PO PRN PRN 11/20/17 09/24/20 epinephrine 0.3 mg/0.3 mL 0.3 mg IM ONCE PRN #2 each 04/11/18 09/24/20 injection, auto-injector omeprazole magnesium 20 mg 20 mg PO DAILY #90 tab 06/18/20 09/24/20 tablet,delayed release amoxicillin 500 mg PO BID 10 Days #20 tab 09/24/20 Previous Rx's Medication Instructions Recorded epinephrine 0.3 mg/0.3 mL 0.3 mg IM ONCE PRN #2 each 04/11/18 injection, auto-injector omeprazole magnesium 20 mg 20 mg PO DAILY #90 tab 06/18/20 tablet,delayed release amoxicillin 500 mg PO BID 10 Days #20 tab 09/24/20 Allergies Allergy/AdvReac Type Severity Reaction Status Date / Time codeine Allergy Severe Hives Verified 09/08/20 09:24 kiwi Allergy Intermediate Verified 09/08/20 09:24 ciprofloxacin [From Cipro] AdvReac Intermediate vomiting Verified 09/08/20 09:24 General Stated Complaint: Sorethroat JOSELIN: 3 Review of Systems All systems reviewed & are unremarkable except as noted in HPI and below Constitutional Constitutional: Reports as per HPI, Denies chills and Denies fever(s) Eyes Eyes: Denies blurry vision ENT Ears, Nose, Mouth, and Throat: Denies dizziness, Reports sore throat and Denies throat swelling Cardiovascular Cardiovascular: Denies chest pain and Denies dyspnea Respiratory Respiratory: Denies cough and Denies dyspnea Gastrointestinal Gastrointestinal: Denies abdominal pain, Denies diarrhea and Denies vomiting Genitourinary Genitourinary: Denies hematuria and Denies dysuria Musculoskeletal Musculoskeletal: Denies back pain and Denies numbness Integumentary/Breasts Skin/Breast: Denies lesions and Denies rash Neurologic Neurologic: Denies dizziness, Denies localized weakness and Denies numbness Allergic/Immunologic Allergic/Immunologic: Denies throat swelling [facility] Medical History Congenital lpvfme-lmxinln-cgjce reflux Migraine with aura and without status migrainosus Family History Mother Depression Hyperlipidemia Father Depression Brother Asthma ADHD Maternal Grandfather Heart disease Maternal Grandmother Heart disease Brother Autism Paternal Grandfather No problems noted. Paternal Grandmother Glaucoma Social History Smoking/Tobacco Use Status: Never Smoking risk assessment performed?: Yes Alcohol Intake: current Alcohol Intake frequency: holidays/special occasions only Alcohol type: beer and hard liquor Drug use: Never Substance use type: does not use Caregiver/Support person: No Household members: spouse and significant other Housing: house Communication Needs: None current occupation: [employer] Pets and animals: Yes Pets and animals: cat(s) and dog(s) Sexually active: Yes Do you think of yourself as: straight/heterosexual Current gender identity: female What is your relationship status?: living with partner How often do you talk on the phone with friends or family?: three or more times per week How often do you get together with friends or relatives?: three or more times per week How often do you attend zoroastrianism or bahai services?: decline to answer Do you belong to any clubs or organized social groups?: yes Panel score (0-1 are the most socially isolated patients): 3 What type of physical activity do you participate in: walking Duration: 30-45 minutes/day Frequency: 3-4 times per week Kendal/Restorationist: No preference Special kendal needs: No Seatbelt use: always Helmet use: Yes Helmet use: always Drive intox or ride w/intox national dedicated truck driver: No Do you feel safe at home: Yes Do you feel safe in your relationship?: Yes Exam Const General: cooperative, healthy appearing and no acute distress HENMT Head: normal to inspection Ears: hearing grossly normal bilaterally, external ears normal and TM's normal bilaterally General nose exam: external nose normal Face and sinus: normal facial exam Mouth: oral mucosae normal, no drooling and no trismus Throat: uvula midline, no peritonsillar masses and posterior oropharynx abnormal edema; no erythema and no exudates Eyes General: appearance normal, both eyes and all related structures EOM: EOM intact bilaterally Neck Neck: normal visual inspection, supple and No submandibular swelling Lymphatic: no lymphadenopathy noted Chest Chest: normal inspection of the chest and no tenderness Resp Effort & Inspection: normal respiratory effort and able to speak in complete sentences Auscultation: clear to auscultation bilaterally Cardio Rate: regular rate Rhythm: regular rhythm Skin General skin exam: no rashes or lesions noted Neuro General: patient alert, patient awake and patient oriented x3 Cognition: normal cognition Speech: speech normal Motor: muscle tone normal throughout Sensory Exam: no sensory deficits noted Extrem General: normal to inspection, full ROM, capillary refill normal, no calf tenderness bilaterally and no edema Psych Appearance: grossly normal Mental Status: mental status grossly normal Speech and Movement: speech and movement normal Affect: normal affect Course Vital Signs Vital signs: Vital Signs Temperature 98.7 F 09/24/20 08:13 Pulse 81 09/24/20 08:13 Respiratory Rate 20 09/24/20 08:13 Blood Pressure 143/85 H 09/24/20 08:13 Pulse Oximetry 98 09/24/20 08:13 Temperature 98.7 F 09/24/20 08:13 Temperature Source Oral 09/24/20 08:13 Pulse 81 09/24/20 08:13 Respiratory Rate 20 09/24/20 08:13 Respiratory Effort Non-Labored 09/24/20 08:17 Blood Pressure 143/85 H 09/24/20 08:13 Blood Pressure Position Sitting 09/24/20 08:13 Pulse Oximetry 98 09/24/20 08:13 Oxygen Delivery Method Room Air 09/24/20 08:13 Oxygen Flow Rate 0 09/24/20 08:13 Pain Level 10 09/24/20 08:13
[2020-09-24] MEDS: Dexamethasone 10 MG/ML VIAL PO (08:58)
== END 2020-09-24 09:09 | disposition home or self-care (01) ==
PROVIDERS: Emergency Provider Physician Assistant; PCP Nurse Practitioner Family
DX: J02.9 Acute pharyngitis, unspecified (principal)
CPT/HCPCS: 87880; 99283; 87081; J1100

== ENCOUNTER 2020-10-01 21:31 | Emergency (ER) | payer OTHER, SELFPAY ==
--- NOTE | 2020-10-01 21:33 | ED.GENADUL_ITS ---
Discharge Plan Disposition Patient Disposition: HOME Condition: Stable Discharge Details Clinical Impression: Pharyngitis Primary Care Provider: Levy Mendoza ED Provider: Eber Madera Home Meds and New Rx's Prescriptions: New budesonide [Rhinocort Allergy] 32 mcg/actuation spray,non-aerosol 2 spray intranasal BID Qty: 8.43 RF: 0 loratadine-pseudoephedrine [Claritin-D 24 Hour] 10-240 mg tablet extended release 24 hr 1 tab PO DAILY Qty: 30 RF: 0 Continued epinephrine [EpiPen 2-Steve] 0.3 mg/0.3 mL auto-injector 0.3 mg IM ONCE PRN (Reason: anaphylaxis) Qty: 2 RF: 0 omeprazole magnesium [Prilosec OTC] 20 mg tablet,delayed release (DR/EC) 20 mg PO DAILY Qty: 90 RF: 3 garlic 1 EACH tablet 1 tab PO DAILY RF: 0 acetaminophen [Tylenol] 325 MG tablet 650 mg PO Q4H PRN PRNRF: 0 diphenhydramine HCl 25 MG capsule 25 mg PO PRN PRNRF: 0 Discharge Instructions Instructions: Pharyngitis (ED) Additional Instructions: At this time I have given you a single dose of Decadron. I am writing a prescription for both Rhinocort allergy and Claritin-D 24-hour, please take as directed. Watch for new or worsening symptoms and return to the ER for any concerns. I am giving you the name and number of our local ENT specialist I am also placing you on the ENT list. Please contact their office tomorrow to discuss outpatient reevaluation. Referrals: Flaco Sue MD [ [facility] STAFF PHYSICIAN] - Medical Decision Making 25-year-old female reports sore throat, nasal congestion, bilateral ear pain and popping in both ears when she swallows for approximately 2 weeks. She was seen at the urgent care and subsequently in the ER. She reports the only thing that helped was the Decadron. Interestingly she was prescribed amoxicillin 7 days ago, with a 10-day course, and she reports that she finished it 2 days ago. Patient appears well, nontoxic, afebrile, speaks without difficulty, no evidence of trismus, airway is patent, lungs are clear to auscultation, O2 sats are 100% on room air. No evidence of respiratory compromise. She manages her secretions without difficulty. She has had 2 neg strep test with a negative culture. I do not believe that repeating the strep test today is beneficial as I have extremely low suspicion. I also do not believe routine laboratory values such as a CBC and/or CMP would be beneficial. I do not believe that emergent imaging of her neck is indicated given her benign examination. I see no evidence of meningeal symptoms, peritonsillar abscess, etc. At this time we discussed options. Patient reports that Decadron did help, I will give a single dose of 10 mg now. She is concerned that this is allergies. Certainly the bilateral ear pain, congestion, ear popping with swallowing, throat pain could be consistent with allergies and/or eustachian tube dysfunction. I believe treating her with a nasal spray steroid and Claritin-D is reasonable. I will also place her on the ENT list and have her contact the ENT clinic tomorrow to help expedite outpatient care. She was encouraged to return to the ER for new or worsening symptoms. Patient is comfortable with this plan and has no additional questions or concerns upon discharge. Medical Records Medical records reviewed: Yes I reviewed the patient's medical records. HPI General Mode of arrival: ambulatory . Date/Time Provider Initiated Documentation: 10/01/20 21:31 . Limitations to Documentation: no limitations . Information obtained by: patient . HPI Narrative: This is a 25-year-old female, past medical history that includes congenital vesico-uretero migraines, renal reflux, psoriasis, anxiety, depression, presenting to the ER today complaining of throat pain, bilateral ear pain, nasal congestion, popping in her ears when she swallows. Patient states that this has been going on for almost 2 weeks. She states that she was initially seen at the urgent care, had a negative strep test. Subsequently came to the ER, negative strep test at that time. She was given a single dose of Decadron and was also prescribed amoxicillin. Interestingly, patient reports that she finished her amoxicillin 2 days ago however she was prescribed a 10-day course just 7 days ago. Patient denies headache, fever, ear discharge, chest pain, shortness of breath, abdominal pain, nausea, vomiting. She denies any posterior neck pain. Patient reports that her mother developed allergies when she was 25 years old and she wonders if she has allergies now. She states that she has tried Benadryl but it makes her sleepy. She has taken Tylenol for her discomfort but given her renal condition does not take Motrin. Related Data Home Medications Medication Instructions Recorded Confirmed garlic 1 tab PO DAILY 02/14/17 10/01/20 acetaminophen [Tylenol] 650 mg PO Q4H PRN PRN 10/02/17 10/01/20 diphenhydramine HCl 25 mg PO PRN PRN 11/20/17 10/01/20 epinephrine 0.3 mg/0.3 mL 0.3 mg IM ONCE PRN #2 each 04/11/18 10/01/20 injection, auto-injector omeprazole magnesium 20 mg 20 mg PO DAILY #90 tab 06/18/20 10/01/20 tablet,delayed release budesonide [Rhinocort Allergy] 2 spray INTRANASAL BID #8.43 ml 10/01/20 loratadine-pseudoephedrine 1 tab PO DAILY #30 tab 10/01/20 [Claritin-D 24 Hour] Previous Rx's Medication Instructions Recorded epinephrine 0.3 mg/0.3 mL 0.3 mg IM ONCE PRN #2 each 04/11/18 injection, auto-injector omeprazole magnesium 20 mg 20 mg PO DAILY #90 tab 06/18/20 tablet,delayed release budesonide [Rhinocort Allergy] 2 spray INTRANASAL BID #8.43 ml 10/01/20 loratadine-pseudoephedrine 1 tab PO DAILY #30 tab 10/01/20 [Claritin-D 24 Hour] Allergies Allergy/AdvReac Type Severity Reaction Status Date / Time codeine Allergy Severe Hives Verified 10/01/20 21:39 kiwi Allergy Intermediate Verified 10/01/20 21:39 ciprofloxacin [From Cipro] AdvReac Intermediate vomiting Verified 10/01/20 21:39 General JOSELIN: 3 Review of Systems Constitutional Constitutional: Denies fever(s) and Reports headache(s) (Migraines, no headache now) Eyes Eyes: Denies eye discharge, Denies irritation and Denies itchy eyes ENT Ears, Nose, Mouth, and Throat: Reports headache(s) (Migraines, no headache now), Denies neck pain and Reports sore throat Cardiovascular Cardiovascular: Denies chest pain and Denies dyspnea Respiratory Respiratory: Denies cough and Denies dyspnea Gastrointestinal Gastrointestinal: Denies abdominal pain, Denies nausea and Denies vomiting Musculoskeletal Musculoskeletal: Denies neck pain Integumentary/Breasts Skin/Breast: Denies rash Neurologic Neurologic: Reports headache(s) (Migraines, no headache now) Psychiatric Psychiatric: Reports anxiety Allergic/Immunologic Allergic/Immunologic: Denies itchy eyes [facility] Medical History Congenital dmsnuq-pzialub-bpczm reflux Migraine with aura and without status migrainosus Family History Mother Depression Hyperlipidemia Father Depression Brother Asthma ADHD Maternal Grandfather Heart disease Maternal Grandmother Heart disease Brother Autism Paternal Grandfather No problems noted. Paternal Grandmother Glaucoma Social History Smoking/Tobacco Use Status: Never Smoking risk assessment performed?: Yes Alcohol Intake: current Alcohol Intake frequency: holidays/special occasions only Alcohol type: beer and hard liquor Drug use: Never Substance use type: does not use Caregiver/Support person: No Household members: spouse and significant other Housing: house Communication Needs: None current occupation: [employer] Pets and animals: Yes Pets and animals: cat(s) and dog(s) Sexually active: Yes Do you think of yourself as: straight/heterosexual Current gender identity: female What is your relationship status?: living with partner How often do you talk on the phone with friends or family?: three or more times per week How often do you get together with friends or relatives?: three or more times per week How often do you attend holiness or anabaptist services?: decline to answer Do you belong to any clubs or organized social groups?: yes Panel score (0-1 are the most socially isolated patients): 3 What type of physical activity do you participate in: walking Duration: 30-45 minutes/day Frequency: 3-4 times per week Kendal/Hinduism: No preference Special kendal needs: No Seatbelt use: always Helmet use: Yes Helmet use: always Drive intox or ride w/intox stock driver: No Do you feel safe at home: Yes Do you feel safe in your relationship?: Yes Exam Const General: cooperative, healthy appearing, comfortable and no acute distress Orientation: alert, awake and oriented x3 HENMT Head: normal to inspection, normocephalic and atraumatic Ears: external ears normal, TM's normal bilaterally and EAC's normal General nose exam: external nose normal Face and sinus: normal facial exam Mouth: oral mucosae normal and moist mucous membranes Throat: posterior oropharynx normal, tonsils normal, uvula midline and postnasal drainage Eyes General: appearance normal, both eyes and all related structures Alignment and Position: alignment normal Periorbital: periorbital findings normal Eyelids: eyelids normal Conjunctivae: conjunctivae normal Sclera: sclerae normal Cornea: corneas normal Pupils: PERRL EOM: EOM intact bilaterally Direct ophthalmoscopy: normal light reflex Neck Neck: normal visual inspection, full ROM, no lymphadenopathy, no meningeal signs, trachea midline, supple and nontender Resp Effort & Inspection: normal respiratory effort and able to speak in complete sentences Auscultation: clear to auscultation bilaterally Cardio Rate: regular rate Rhythm: regular rhythm Skin General skin exam: no rashes or lesions noted Neuro General: patient alert, patient awake, moves all extremities and no focal motor deficits Cognition: normal cognition Speech: speech normal Gait: normal gait Sensory Exam: no sensory deficits noted Psych Appearance: grossly normal Mental Status: mental status grossly normal
[2020-10-01 21:34] VITALS: BP 136/79; PULSE 77; RESP 18; TEMP 36.3; O2SAT 100
--- NOTE | 2020-10-01 22:06 | NUR.NOTE ---
Referral to ENT for pharyngitis f/u sooner rather than later.Nursing Note:
[2020-10-01] MEDS: Dexamethasone 4 MG TAB 10 MG PO (22:15)
== END 2020-10-01 22:25 | disposition home or self-care (01) ==
PROVIDERS: Emergency Provider Physician Assistant; PCP Nurse Practitioner Family
DX: J02.9 Acute pharyngitis, unspecified (principal)
CPT/HCPCS: 99283; J8540

== ENCOUNTER 2020-12-29 20:33 | Emergency (ER) | payer OTHER, SELFPAY ==
[2020-12-29] VITALS (18 sets, daily range): BP systolic 126–143; BP diastolic 88–93; PULSE 79–109; RESP 12–22; TEMP 36.5; O2SAT 73–100
--- NOTE | 2020-12-29 20:30 | RT.EKG_ITS ---
APPROVED REPORT Exam: Resting ECG Reason for Exam: chest pain Patient Location: E HR:85 bpm ECG Measurements Heart Rate 85 AXIS IN 141 P 14 QRSd 73 QRS 46 QT 337 T -17 QTc 402 Conclusion Sinus rhythm...normal P axis, V-rate 60- 99 Borderline T abnormalities, diffuse leads...T flat/neg
--- NOTE | 2020-12-29 21:00 | DI.RAD_ITS ---
Exam(s) XR PORTABLE CHEST AP EXAM: XR PORTABLE CHEST AP CLINICAL HISTORY: chest pain TECHNIQUE: 2D digital imaging was performed. COMPARISON: No exams were available for comparison FINDINGS: MEDIASTINUM: Normal. HEART: Normal. PULMONARY VASCULATURE: Normal. LUNGS: Clear. PLEURAL SPACE: No pleural effusion or pneumothorax. BONE:Within normal limits for the patient's age. OTHER FINDINGS:Normal. IMPRESSION: No acute pulmonary findings. DATA REPOSITORY: RADIATION DOSE DELIVERED:
[2020-12-29 21:20] LABS: Source Nasal/Nares
[2020-12-29] MEDS: diphenhydrAMINE 25 MG CAP PO (21:30)
[2020-12-29] MEDS: Acetaminophen 325 MG TAB 650 MG PO (21:30)
[2020-12-29] MEDS: Ketorolac 15 MG/ML VIAL IVP (21:30)
[2020-12-29] MEDS: Normal Saline 1,000 ML 1000 ML IV (21:30)
[2020-12-29 21:33] LABS: Abs Immature Grans 0.03 10^3/uL (0.0-0.06); Absolute Basophil Count 0.04 10^3/uL (0.0-0.2); Absolute Eosinophil Count 0.22 10^3/uL (0.0-0.7); Absolute Lymphocyte Count 1.84 10^3/uL (1.2-3.4); Absolute Monocyte Count 0.52 10^3/uL (0.1-0.8); Absolute Neutrophil Count 6.81 10^3/uL (1.2-6.7); Basophils % 0.4; Eosinophils % 2.3; HCT 42.3 % (36.0-46.0); HGB 14.2 g/dL (11.2-15.7); Immature Grans % 0.3; Lymphocytes % 19.5; MCH 29.8 pg (27.0-33.0); MCHC 33.6 % (32.0-36.0); MCV 88.7 fL (80-95); MPV 9.5 fL (8.0-11.0); Monocytes % 5.5; Nucleated RBC 0 %; Platelet Count 286 10^3/uL (130-400); RBC 4.77 10^6/uL (3.93-5.22); RDW 11.8 % (11.7-14.6); RDW-SD 38.6 fL; WBC 9.46 10^3/uL (4.4-10.8)
[2020-12-29 21:42] LABS: ALT 28 U/L (14-59); AST 14 U/L (15-37); Alkaline Phosphatase 78 U/L (46-116); Anion Gap 8.9 mmol/L (3-11); BUN 13 mg/dL (7-18); Bilirubin, Total 0.3 mg/dL (0.2-1.0); CO2 30.1 mmol/L (21.0-32.0); CREATININE 1.1 mg/dL (0.55-1.02); Calcium 8.9 mg/dL (8.5-10.1); Chloride 102 mmol/L (98-107); Estimated GFR 59.58 (mL/min/1.73m2); Glucose 112 mg/dL (74-106); Potassium 3.3 mmol/L (3.5-5.1); Sodium 141 mmol/L (136-145); Total Protein 7.7 g/dL (6.4-8.2)
[2020-12-29 21:43] LABS: Troponin I < 0.05 ng/mL (<0.06)
[2020-12-29 21:56] LABS: D-Dimer 259 ng/mlFEU (<500)
--- NOTE | 2020-12-29 22:13 | DI.VRAD_ITS ---
PROCEDURE INFORMATION: Exam: XR Chest Exam date and time: 12/29/2020 9:14 PM Age: 25 years old Clinical indication: Other: Chest pain TECHNIQUE: Imaging protocol: XR of the chest. Views: 1 view. COMPARISON: CT CHEST PE CTA 09/08/2020 11:02 AM FINDINGS: Lungs: Unremarkable. No consolidation. Pleural spaces: Unremarkable. No pleural effusion. No pneumothorax. Heart/Mediastinum: Unremarkable. No cardiomegaly. Bones/joints: Unremarkable. IMPRESSION: No acute findings. Dictated and Authenticated by: Pedro Pablo Bejarano MD. Ordering:JEN Davidson MD
[2020-12-29 22:17] LABS: COVID-19 PCR Negative (Negative)
--- NOTE | 2020-12-29 22:30 | RT.EKG_ITS ---
APPROVED REPORT Exam: Resting ECG Reason for Exam: chest neck shoulder pain Patient Location: E HR:79 bpm ECG Measurements Heart Rate [address] 147 P 42 QRSd 85 QRS 43 QT 360 T 19 QTc 413 Conclusion Sinus rhythm...normal P axis, V-rate 60- 99
--- NOTE | 2020-12-29 22:30 | DI.CT_ITS ---
Exam(s) CT CHEST PE CTA EXAM: CT CHEST PE CTA CLINICAL HISTORY: chest pain left, recent covid. TECHNIQUE: Imaging Protocol: Axial CT angiography was performed with multi-slice acquisition and mu lti-planar and/or 3D reconstructions. CONTRAST MATERIAL: Intravenous: Omnipaque 350 Contrast volume:100 mL COMPARISON: CT CT CHEST PE CTA from 09/08/2020 FINDINGS: Tracheobronchial tree: Patent where visualized. Pulmonary parenchyma: No consolidation or dominant measurable mass. No architectural distortion. Depe ndent atelectasis. Pulmonary Arteries: No evidence of filling defect to suggest pulmonary emboli. Mediastinum and Valentina: No dominant adenopathy or fluid collection. Visualized thyroid gland: Unremarkable. Pleura: No effusion or pneumothorax. Heart: The heart is not dilated. No coronary artery calcifications are seen. No pericardial effusion. Aorta: Thoracic aorta non-dilated. No dissection. Upper abdomen: Unremarkable. Soft tissues: Unremarkable. Bones: Unremarkable. IMPRESSION: No evidence of pulmonary embolism, thoracic aortic dissection or aneurysm. RADIATION DOSE DELIVERED: 328.71mGy.cm Total DLP DATA REPOSITORY: All CT scans at this facility are submitted to the National Radiology Data Registry (NRDR) Dose Index Registry (DIR) with the [employer] (A[employer]). RADIATION OPTIMIZATION: All CT scans at this facility use at least one of these dose optimization te chniques: automated exposure control; mA and/or kV adjustment per patient size (includes targeted exa ms where dose is matched to clinical indication); or iterative reconstruction.
[2020-12-29] MEDS: fentaNYL 100 MCG/2 ML VIAL 50 MCG IVP (22:51)
[2020-12-29] MEDS: Omnipaque 350 MG/ML 100 ML BTL IJ (22:52)
[2020-12-29] MEDS: Orphenadrine 60 MG/2 ML VIAL IVP (22:52)
[2020-12-29] MEDS: Normal Saline Flush 10 ML SYR IVP (22:57)
--- NOTE | 2020-12-29 23:30 | DI.VRAD_ITS ---
PROCEDURE INFORMATION: Exam: CTA Chest With Contrast Exam date and time: 12/29/2020 10:41 PM Age: 25 years old Clinical indication: Left-sided; Patient HX: Chest pain left, recent covid TECHNIQUE: Imaging protocol: Computed tomographic angiography of the chest with contrast. 3D rendering (Not supervised by radiologist): MIP and/or 3D reconstructed images were created by the technologist. Radiation optimization: All CT scans at this facility use at least one of these dose optimization techniques: automated exposure control; mA and/or kV adjustment per patient size (includes targeted exams where dose is matched to clinical indication); or iterative reconstruction. Contrast material: OMNIPAQUE 350; Contrast volume: 100 ml; Contrast route: INTRAVENOUS (IV); COMPARISON: CT CHEST PE CTA 09/08/2020 11:02 AM FINDINGS: Pulmonary arteries: Normal. No pulmonary emboli. Aorta: Unremarkable. No aortic aneurysm. No aortic dissection. Lungs: Patchy hazy opacification of the perihilar and posterior right lower lobe may be compatible with atelectatic changes versus early pulmonary infiltrate. Pleural spaces: Unremarkable. No pneumothorax. No pleural effusion. Heart: Unremarkable. No cardiomegaly. No pericardial effusion. Lymph nodes: Unremarkable. No enlarged lymph nodes. Bones/joints: Unremarkable. No acute fracture. Soft tissues: Unremarkable. IMPRESSION: 1. Patchy hazy opacification of the perihilar and posterior right lower lobe may be compatible with atelectatic changes versus early pulmonary infiltrate. 2. No evidence of pulmonary embolism. Dictated and Authenticated by: Pedro Pablo Bejarano MD. Ordering:JEN Davidson MD
--- NOTE | 2020-12-29 23:48 | W.ED.GENAD ---
Discharge Plan Disposition Patient Disposition: HOME Condition: Good Discharge Details Clinical Impression: Pneumonia, Chest pain Primary Care Provider: Levy Mendoza ED Provider: Lety Ramirez Home Meds and New Rx's Prescriptions: New prednisone 20 mg tablet 20 mg PO BID Qty: 8 RF: 0 doxycycline hyclate 100 mg tablet 100 mg PO BID Qty: 20 RF: 0 Continued epinephrine [EpiPen 2-Steve] 0.3 mg/0.3 mL auto-injector 0.3 mg IM ONCE PRN (Reason: anaphylaxis) Qty: 2 RF: 0 omeprazole magnesium [Prilosec OTC] 20 mg tablet,delayed release (DR/EC) 20 mg PO DAILY Qty: 90 RF: 3 garlic 1 EACH tablet 1 tab PO DAILY RF: 0 acetaminophen [Tylenol] 325 MG tablet 650 mg PO Q4H PRN PRNRF: 0 budesonide [Rhinocort Allergy] 32 mcg/actuation spray,non-aerosol 2 spray intranasal BID Qty: 8.43 RF: 0 loratadine-pseudoephedrine [Claritin-D 24 Hour] 10-240 mg tablet extended release 24 hr 1 tab PO DAILY Qty: 30 RF: 0 Discharge Instructions Instructions: Chest Pain (ED), Pneumonia (ED) Additional Instructions: Take antibiotic as prescribed Yogurt daily while on antibiotic This medication will make your symptoms however, use caution more sunscreen outside Use your inhaler, 1 to 2 puffs every 4-6 hours as needed for shortness of breath You may start the prednisone tonight or tomorrow, this may help with your symptoms Recheck recommended in 48 hours Stand Alone Forms: Work Release Referrals: Levy Mendoza, [employer] [Primary Care Provider] - Medical Decision Making Troponin negative with symptoms greater than 24 hours, EKG initially with low voltage, repeat EKG does not show acute abnormality and patient was actually having increased pain at this time D-dimer negative but patient had dramatic worsening in her pain and so I did order CTA chest, this shows evidence of possible right-sided infiltrate, I will treat patient with doxycycline We will place her on prednisone No evidence of pulmonary embolism symptoms inconsistent with pericarditis or myocarditis with negative troponin She is feeling symptomatic improvement at time of reassessment, she is not hypoxic, oxygenation 96% patient otherwise stable Work note supplied Negative Covid test, Denies chance of Patient is stable for discharge home at time of reassessment and is requesting discharge home Recommendation to have repeat Covid test in 1 week for persistent symptoms Return precautions discussed and patient understands Recheck with primary care physician in 48 hours recommended Medical Records Medical records reviewed: Yes I reviewed the patient's medical records. Lab Data Lab results reviewed: Yes I reviewed the patient's lab results. ECG Data Prior ECG tracings: available for review HPI General Mode of arrival: ambulatory. Date/Time Provider Initiated Documentation: 12/29/20 20:50. Limitations to Documentation: no limitations. Information obtained by: patient. HPI Narrative: This 25-year-old female with history of COVID-19 presents with report of chest pain, cough, sore throat, runny nose. She states her symptoms have been present for the past 24 hours. She states that she had cough as well. She states that her chest pain is exacerbated with cough, breathing. She denies any increase in pain with position change. She denies any calf pain or swelling. She denies tobacco use, exogenous hormones. She denies any hemoptysis. She states the same pain she had with COVID-19, however her pain is now constant. She states he also has pain with palpation. Denies chance of . Related Data Home Medications Medication Instructions Recorded Confirmed garlic 1 tab PO DAILY 02/14/17 10/15/20 acetaminophen [Tylenol] 650 mg PO Q4H PRN PRN 10/02/17 10/15/20 epinephrine 0.3 mg/0.3 mL 0.3 mg IM ONCE PRN #2 each 04/11/18 10/15/20 injection, auto-injector omeprazole magnesium 20 mg 20 mg PO DAILY #90 tab 06/18/20 10/15/20 tablet,delayed release budesonide [Rhinocort Allergy] 2 spray INTRANASAL BID #8.43 ml 10/01/20 10/15/20 loratadine-pseudoephedrine 1 tab PO DAILY #30 tab 10/01/20 10/15/20 [Claritin-D 24 Hour] doxycycline hyclate 100 mg PO BID #20 tab 12/29/20 prednisone 20 mg PO BID #8 tab 12/29/20 Previous Rx's Medication Instructions Recorded epinephrine 0.3 mg/0.3 mL 0.3 mg IM ONCE PRN #2 each 04/11/18 injection, auto-injector omeprazole magnesium 20 mg 20 mg PO DAILY #90 tab 06/18/20 tablet,delayed release budesonide [Rhinocort Allergy] 2 spray INTRANASAL BID #8.43 ml 10/01/20 loratadine-pseudoephedrine 1 tab PO DAILY #30 tab 10/01/20 [Claritin-D 24 Hour] doxycycline hyclate 100 mg PO BID #20 tab 12/29/20 prednisone 20 mg PO BID #8 tab 12/29/20 Allergies Allergy/AdvReac Type Severity Reaction Status Date / Time codeine Allergy Severe Hives Verified 10/15/20 13:14 kiwi Allergy Intermediate Verified 10/15/20 13:14 ciprofloxacin [From Cipro] AdvReac Intermediate vomiting Verified 10/15/20 13:14 General Stated Complaint: Chest/Rib JOSELIN: 3 Review of Systems All systems reviewed & are unremarkable except as noted in HPI and below PFSH Medical History Congenital lnecay-ouditnr-hunwz reflux Migraine with aura and without status migrainosus Family History Mother Depression Hyperlipidemia Father Depression Brother Asthma ADHD Maternal Grandfather Heart disease Maternal Grandmother Heart disease Brother Autism Paternal Grandfather No problems noted. Paternal Grandmother Glaucoma Social History Smoking/Tobacco Use Status: Never Smoking risk assessment performed?: Yes Alcohol Intake: current Alcohol Intake frequency: holidays/special occasions only Alcohol type: beer and hard liquor Drug use: Never Substance use type: does not use Caregiver/Support person: No Household members: spouse and significant other Housing: house Communication Needs: None current occupation: [employer] Pets and animals: Yes Pets and animals: cat(s) and dog(s) Sexually active: Yes Do you think of yourself as: straight/heterosexual Current gender identity: female What is your relationship status?: living with partner How often do you talk on the phone with friends or family?: three or more times per week How often do you get together with friends or relatives?: three or more times per week How often do you attend taoist or sabianist services?: decline to answer Do you belong to any clubs or organized social groups?: yes Panel score (0-1 are the most socially isolated patients): 3 What type of physical activity do you participate in: walking Duration: 30-45 minutes/day Frequency: 3-4 times per week Kendal/Oriental Orthodox: No preference Special kendal needs: No Seatbelt use: always Helmet use: Yes Helmet use: always Drive intox or ride w/intox 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 Do you feel safe at home: Yes Do you feel safe in your relationship?: Yes Exam Const General: cooperative, comfortable and no acute distress Eyes Sclera: sclerae normal Neck Other: No stridor, no carotid bruit Chest Other: Tenderness with palpation over sternum and left upper chest wall, reproducible pain Resp Effort & Inspection: normal respiratory effort Auscultation: clear to auscultation bilaterally Cardio Rate: regular rate Rhythm: regular rhythm Skin General skin exam: no rashes or lesions noted Neuro General: patient alert and patient oriented x3 Extrem Other: no calf swelling or tenderness, distal pulses intact Course Vital Signs Vital signs: Vital Signs Respiratory Rate 22 12/29/20 20:42 Pulse Oximetry 99 12/29/20 20:42 Temperature 36.5 C 12/29/20 20:43 Temperature Source Temporal Artery Scan 12/29/20 20:43 Pulse 88 12/29/20 20:45 Pulse 109 H 12/29/20 23:20 Respiratory Rate 16 12/29/20 23:20 Respiratory Effort 12/29/20 20:47 Respiratory Depth Normal 12/29/20 20:47 Respiratory Pattern Normal 12/29/20 20:47 Blood Pressure 126/88 12/29/20 20:45 Blood Pressure Mean 97 12/29/20 20:45 Blood Pressure Position Sitting 12/29/20 20:43 Pulse Oximetry 97 12/29/20 23:20 Oxygen Delivery Method Room Air 12/29/20 20:43 Oxygen Flow Rate 0 12/29/20 20:43 Pain Level 10 12/29/20 20:43 Lab/Test Results Lab/Test Results: Laboratory Tests Range/Units 12/29/20 12/29/20 12/29/20 20:55 20:55 20:55 WBC (4.4-10.8) 10^3/uL 9.46 RBC (3.93-5.22) 10^6/uL 4.77 Hgb (11.2-15.7) g/dL 14.2 Hct (36.0-46.0) % 42.3 MCV (80-95) fL 88.7 MCH (27.0-33.0) pg 29.8 MCHC (32.0-36.0) % 33.6 RDW (11.7-14.6) % 11.8 Plt Count (130-400) 10^3/uL 286 MPV (8.0-11.0) fL 9.5 Immature Gran % 0.3 Neutrophils % 72.0 Lymphocytes % 19.5 Monocytes % 5.5 Eosinophils % 2.3 Basophils % 0.4 Nucleated RBC % % 0 Absolute Neutrophils (1.2-6.7) 10^3/uL 6.81 H Absolute Lymphocytes (1.2-3.4) 10^3/uL 1.84 Absolute Monocytes (0.1-0.8) 10^3/uL 0.52 Absolute Eosinophils (0.0-0.7) 10^3/uL 0.22 Absolute Basophils (0.0-0.2) 10^3/uL 0.04 D-Dimer (<500) ng/mlFEU Sodium (136-145) mmol/L 141 Potassium (3.5-5.1) mmol/L 3.3 L Chloride (98-107) mmol/L 102 Carbon Dioxide (21.0-32.0) mmol/L 30.1 Anion Gap (3-11) mmol/L 8.9 BUN (7-18) mg/dL 13 Creatinine (0.55-1.02) mg/dL 1.1 H Estimated GFR/1.73 m2 (mL/min/1.73m2) 59.58 Glucose (74-106) mg/dL 112 H Calcium (8.5-10.1) mg/dL 8.9 Total Bilirubin (0.2-1.0) mg/dL 0.3 AST (15-37) U/L 14 L ALT (14-59) U/L 28 Alkaline Phosphatase (46-116) U/L 78 Troponin I (<0.06) ng/mL < 0.05 Total Protein (6.4-8.2) g/dL 7.7 Albumin (3.4-5.0) g/dL 4.0 COVID-19 Source Nasal/Nares SARS-CoV-2 (PCR) (Negative) Negative Range/Units 12/29/20 21:17 WBC (4.4-10.8) 10^3/uL RBC (3.93-5.22) 10^6/uL Hgb (11.2-15.7) g/dL Hct (36.0-46.0) % MCV (80-95) fL MCH (27.0-33.0) pg MCHC (32.0-36.0) % RDW (11.7-14.6) % Plt Count (130-400) 10^3/uL MPV (8.0-11.0) fL Immature Gran % Neutrophils % Lymphocytes % Monocytes % Eosinophils % Basophils % Nucleated RBC % % Absolute Neutrophils (1.2-6.7) 10^3/uL Absolute Lymphocytes (1.2-3.4) 10^3/uL Absolute Monocytes (0.1-0.8) 10^3/uL Absolute Eosinophils (0.0-0.7) 10^3/uL Absolute Basophils (0.0-0.2) 10^3/uL D-Dimer (<500) ng/mlFEU 259 Sodium (136-145) mmol/L Potassium (3.5-5.1) mmol/L Chloride (98-107) mmol/L Carbon Dioxide (21.0-32.0) mmol/L Anion Gap (3-11) mmol/L BUN (7-18) mg/dL Creatinine (0.55-1.02) mg/dL Estimated GFR/1.73 m2 (mL/min/1.73m2) Glucose (74-106) mg/dL Calcium (8.5-10.1) mg/dL Total Bilirubin (0.2-1.0) mg/dL AST (15-37) U/L ALT (14-59) U/L Alkaline Phosphatase (46-116) U/L Troponin I (<0.06) ng/mL Total Protein (6.4-8.2) g/dL Albumin (3.4-5.0) g/dL COVID-19 Source SARS-CoV-2 (PCR) (Negative)
[2020-12-29] MEDS: Doxycycline Hyclate 100 MG CAP PO (23:54)
== END 2020-12-29 23:56 | disposition home or self-care (01) ==
PROVIDERS: Emergency Provider Physician Assistant; PCP Nurse Practitioner Family
DX: J18.9 Pneumonia, unspecified organism (principal); R07.9 Chest pain, unspecified; Z86.16 Personal history of COVID-19
CPT/HCPCS: 71275; 80053; 87635; 93005; 96361; 96374; 96375; 99285; J2360; 71045; 84484; 85025; 85379; 93010; 99284; J1885; J3010; J3490

== ENCOUNTER 2021-04-13 09:39 | Emergency (ER) | payer OTHER, SELFPAY ==
--- NOTE | 2021-04-13 09:41 | W.ED.GENAD ---
Discharge Plan Disposition Patient Disposition: HOME Condition: Stable Discharge Details Clinical Impression: Cough Primary Care Provider: Julien Sevilla ED Provider: Eber Madera Home Meds and New Rx's Prescriptions: Continued epinephrine [EpiPen 2-Steve] 0.3 mg/0.3 mL auto-injector 0.3 mg IM ONCE PRN (Reason: anaphylaxis) Qty: 2 RF: 0 omeprazole magnesium [Prilosec OTC] 20 mg tablet,delayed release (DR/EC) 20 mg PO DAILY Qty: 90 RF: 3 garlic 1 EACH tablet 1 tab PO DAILY RF: 0 acetaminophen [Tylenol] 325 MG tablet 650 mg PO Q4H PRN PRNRF: 0 Discharge Instructions Instructions: Acute Cough (ED) Additional Instructions: Your chest x-ray is clear, no signs of pneumonia. Your Covid swab is pending and likely will result in the next 2-3 days. Until your Covid test has resulted negative I recommend that you quarantine. There is no clear indication for antibiotic therapy. In the meantime please treat your symptoms with egwj-xei-axqntpv medications such as a cough suppressant, antihistamine, decongestant, Tylenol and/or Motrin. Please watch for new or worsening symptoms and return to the ER for any concerns. Lastly, I recommend reaching out your primary care provider to discuss your ongoing symptoms and need for outpatient reevaluation Medical Decision Making 25-year-old female presents with 10-day history of green productive cough in the morning, dry cough throughout the rest of the day, nasal congestion, overall fatigue. She did take ljgr-cmh-sqqmuih Tylenol with no relief of her symptoms. She is not a smoker. She has not been vaccinated for Covid. Patient is concerned that she may require antibiotics. Clinically she appears well, nontoxic, afebrile, O2 sat 98% on room air, lungs clear to auscultation. Will obtain a send out Covid swab and a chest x-ray. Explained that if the chest x-ray is positive for pneumonia I will be happy to treat with antibiotics otherwise I do not see a clear indication to initiate antibiotic therapy and instead recommend yubq-nhn-mjiwhsm medication for symptomatic control. I did recommend that she quarantine until her Covid test results negative in the next 2-3 days. Patient is frustrated because she believes that she does require antibiotics. I attempted to explain my rationale again regarding her overall presentation and recommended contacting her primary care provider to discuss her ongoing symptoms potential need for outpatient reevaluation. Chest x-ray negative Covid swab pending This documentation was generated using [employer] dictation system, please disregard any oddities of phrase or misspellings. Medical Records Medical records reviewed: Yes I reviewed the patient's medical records. Imaging Data Radiologic Study: Attestation: I personally reviewed and interpreted this imaging study as follows: Imaging: X-Ray Radiologist's impression: EXAM XR PORTABLE CHEST AP CLINICAL HISTORY cough TECHNIQUE 2D digital imaging was performed of the chest. [One image] was obtained. [An AP view] was obtained. COMPARISON [CR,XR XR PORTABLE CHEST AP from 12/29/2020] [] FINDINGS MEDIASTINUM: [Normal.] [] HEART: [Normal.] [] PULMONARY VASCULATURE: [Normal.] [] LUNGS: [Clear.] [] PLEURAL SPACE: [No pleural effusion or pneumothorax.] [] BONE:[Within normal limits for the patient's age.] [] OTHER FINDINGS:[Normal.] [] IMPRESSION [No acute pulmonary findings. HPI General Mode of arrival: ambulatory. Date/Time Provider Initiated Documentation: 04/13/21 09:40. Limitations to Documentation: no limitations. Information obtained by: patient. HPI Narrative: This is a 25-year-old female, past medical history of congenital vesicoureteral renal reflux, non-smoker, not vaccinated for Covid, presenting to the ER today reporting a productive cough in the morning, dry cough throughout the day, nasal congestion, overall fatigue for the past 10 days. She states that she had Covid earlier this year. She denies any fever, ear pain, abdominal pain, nausea, vomiting, shortness of breath. She reports the first day she had a mild sore throat but that has resolved completely. Patient states that she had pneumonia back in late November, is concerned that she does not treat it effectively because she feels as though she took amoxicillin multiple times as a child and thinks she is likely immune to amoxicillin. She has only taken fexg-gfb-bcxwiif Tylenol for her symptoms, no medications taken today. Related Data Home Medications Medication Instructions Recorded Confirmed garlic 1 tab PO DAILY 02/14/17 04/13/21 acetaminophen [Tylenol] 650 mg PO Q4H PRN PRN 10/02/17 04/13/21 epinephrine 0.3 mg/0.3 mL 0.3 mg IM ONCE PRN #2 each 04/11/18 04/13/21 injection, auto-injector omeprazole magnesium 20 mg 20 mg PO DAILY #90 tab 06/18/20 04/13/21 tablet,delayed release Previous Rx's Medication Instructions Recorded epinephrine 0.3 mg/0.3 mL 0.3 mg IM ONCE PRN #2 each 04/11/18 injection, auto-injector omeprazole magnesium 20 mg 20 mg PO DAILY #90 tab 06/18/20 tablet,delayed release Allergies Allergy/AdvReac Type Severity Reaction Status Date / Time codeine Allergy Severe Hives Verified 04/13/21 09:56 kiwi Allergy Intermediate Verified 04/13/21 09:56 ciprofloxacin [From Cipro] AdvReac Intermediate vomiting Verified 04/13/21 09:56 General JOSELIN: 3 Review of Systems Constitutional Constitutional: Denies fever(s) ENT Ears, Nose, Mouth, and Throat: Denies otalgia, Reports nasal congestion and Reports sore throat Cardiovascular Cardiovascular: Denies chest pain and Denies dyspnea Respiratory Respiratory: Reports cough and Denies dyspnea Gastrointestinal Gastrointestinal: Denies abdominal pain, Denies nausea and Denies vomiting PFSH All Active Problems Pneumonia (Acute) Chest pain (Acute) Cough (Acute) Allergies (Acute) Pyelonephritis (Acute) Chest pain (Acute) Pharyngitis (Acute) Epigastric abdominal pain (Acute) Viral syndrome (Acute) Migraine with aura and without status migrainosus (Acute) Severe concussion (Acute 02/22/17) Psoriasis (Acute 09/13/17) Moderately severe depression (Acute 02/22/17) Anxiety and depression (Acute 07/24/17) Medical History Congenital tgvkhq-zgibzxh-lnvsu reflux Family History Mother Depression Hyperlipidemia Father Depression Brother Asthma ADHD Maternal Grandfather Heart disease Maternal Grandmother Heart disease Brother Autism Paternal Grandfather No problems noted. Paternal Grandmother Glaucoma Social History Smoking/Tobacco Use Status: Never Smoking risk assessment performed?: Yes Alcohol Intake: current Alcohol Intake frequency: holidays/special occasions only Alcohol type: beer and hard liquor Drug use: Never Substance use type: does not use Caregiver/Support person: No Household members: spouse and significant other Housing: house Communication Needs: None current occupation: [employer] Pets and animals: Yes Pets and animals: cat(s) and dog(s) Sexually active: Yes Do you think of yourself as: straight/heterosexual Current gender identity: female What is your relationship status?: living with partner How often do you talk on the phone with friends or family?: three or more times per week How often do you get together with friends or relatives?: three or more times per week How often do you attend yazdanism or zoroastrianism services?: decline to answer Do you belong to any clubs or organized social groups?: yes Panel score (0-1 are the most socially isolated patients): 3 What type of physical activity do you participate in: walking Duration: 30-45 minutes/day Frequency: 3-4 times per week Kendal/Jewish: No preference Special kendal needs: No Seatbelt use: always Helmet use: Yes Helmet use: always Drive intox or ride w/intox 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 Do you feel safe at home: Yes Do you feel safe in your relationship?: Yes Exam Const General: cooperative, healthy appearing, comfortable and no acute distress Orientation: alert and awake HENMT Head: normal to inspection, normocephalic and atraumatic Ears: external ears normal, TM's normal bilaterally and EAC's normal General nose exam: nasal discharge clear Mouth: moist mucous membranes Throat: posterior oropharynx normal Eyes General: appearance normal, both eyes and all related structures Conjunctivae: conjunctivae normal Neck Neck: normal visual inspection, full ROM, no lymphadenopathy, no meningeal signs, trachea midline, supple and nontender Resp Effort & Inspection: normal respiratory effort and able to speak in complete sentences Auscultation: clear to auscultation bilaterally Cardio Rate: regular rate Rhythm: regular rhythm Skin General skin exam: no rashes or lesions noted Neuro General: patient alert, patient awake, moves all extremities and no focal motor deficits Sensory Exam: no sensory deficits noted Psych Appearance: grossly normal Mental Status: mental status grossly normal
[2021-04-13 09:52] VITALS: BP 111/85; PULSE 98; TEMP 36.9; O2SAT 98
--- NOTE | 2021-04-13 10:55 | DI.RAD_ITS ---
Exam(s) XR PORTABLE CHEST AP EXAM: XR PORTABLE CHEST AP CLINICAL HISTORY: cough TECHNIQUE: 2D digital imaging was performed of the chest. One image was obtained. An AP view was ob tained. COMPARISON: CR,XR XR PORTABLE CHEST AP from 12/29/2020 FINDINGS: MEDIASTINUM: Normal. HEART: Normal. PULMONARY VASCULATURE: Normal. LUNGS: Clear. PLEURAL SPACE: No pleural effusion or pneumothorax. BONE:Within normal limits for the patient's age. OTHER FINDINGS:Normal. IMPRESSION: No acute pulmonary findings. DATA REPOSITORY: RADIATION DOSE DELIVERED:
[2021-04-13 11:24] VITALS: BP 111/85; PULSE 98; RESP 14; TEMP 36.9; O2SAT 98
[2021-04-14 23:36] LABS: COVID-19 RT-PCR UVMMC Result Negative (Negative)
== END 2021-04-13 11:28 | disposition home or self-care (01) ==
PROVIDERS: Emergency Provider Physician Assistant; PCP Internal Medicine
DX: R05.1 Acute cough (principal); R09.81 Nasal congestion
CPT/HCPCS: 99283; U0003; 71045

== ENCOUNTER 2021-05-11 12:00 | Outpatient (REF) | payer OTHER, SELFPAY ==
[2021-05-12 15:34] LABS: COVID-19 RT-PCR UVMMC Result Presumptive Positive (Negative)
== END 2021-05-11 12:01 | disposition home or self-care (01) ==
LOC: NCHCN 12:00
PROVIDERS: PCP Internal Medicine; Visit Provider Family Medicine
DX: Z20.822 Contact with and (suspected) exposure to COVID-19 (principal)
CPT/HCPCS: U0003

== ENCOUNTER 2021-05-12 15:24 | Outpatient (REF) | payer OTHER, SELFPAY ==
[2021-05-14 09:21] LABS: COVID-19 RT-PCR UVMMC Result Positive (Negative)
== END 2021-05-12 15:25 | disposition home or self-care (01) ==
LOC: NCHCN 15:24
PROVIDERS: PCP Internal Medicine; Visit Provider Family Medicine
DX: Z20.822 Contact with and (suspected) exposure to COVID-19 (principal)
CPT/HCPCS: U0003

== ENCOUNTER 2021-09-06 10:26 | Emergency (ER) | payer OTHER, SELFPAY ==
[2021-09-06 10:45] VITALS: BP 141/95; PULSE 78; RESP 17; TEMP 36.6; O2SAT 99
--- NOTE | 2021-09-06 10:58 | W.ED.GENAD ---
Discharge Plan Disposition Patient Disposition: HOME Condition: Good Discharge Details Clinical Impression: Contusion of arm, right Primary Care Provider: Julien Sevilla ED Provider: Alexus Lynn Home Meds and New Rx's Prescriptions: Continued epinephrine [EpiPen 2-Steve] 0.3 mg/0.3 mL auto-injector 0.3 mg IM ONCE PRN (Reason: anaphylaxis) Qty: 2 0RF Rx Instructions: inject into anterolateral area of thigh (preferred) omeprazole magnesium [Prilosec OTC] 20 mg tablet,delayed release (DR/EC) 20 mg PO DAILY Qty: 90 3RF garlic 1 EACH tablet 1 tab PO DAILY acetaminophen [Tylenol] 325 MG tablet 650 mg PO Q4H PRN PRN Discharge Instructions Instructions: Contusion in Adults (ED) Additional Instructions: Your x-ray is reassuring your x-ray is reassuring here today. No evidence of fracture. I do not see any evidence dislocation or significant muscular injury. Likely contusion. Please encourage rest, ice, elevation. Tylenol and ibuprofen as needed for discomfort. As we discussed, I am concerned that if you pulled your [facility] still clinic in a period of time you may develop frozen shoulder. Please perform the exercises that I demonstrated for you with bending forward to allow for passive range of motion. There are more exercises attached to this as well to help with passive range of motion. Please follow-up with your primary care in the next 1 to 2 weeks for reevaluation. If you develop any new or worsening care urgently once again. In the interim, you may use the sling to help with discomfort as needed but you can also try to take this off very frequently so you do not develop range of motion issues. Referrals: Julien Sevilla MD [Primary Care Provider] - Discharge Data Discharge Date/Time-TO BE ENTERED AT DEPARTURE: 09/06/21 13:41 Medical Decision Making Patient is a pleasant [id number]-maskopfv 26-year-old female presenting today with chief complaint of right upper arm pain. She reports that prior to arrival she tripped over long pants and fell on her right arm. Denies striking her head, no loss of consciousness. Denies any neck pain, back pain, shortness of breath, chest pain. Denies any numbness or tingling. No notable weakness. On exam, patient appears nontoxic. She appears to be resting comfortably. She indicates lateral mid humerus as melquiades of maximal tenderness. Neurovascularly intact, no objective findings of trauma. Limited ROM of the shoulder, partiaularly with FE secondary to pain in this area. No deformity/pain over clavicle, c-spine, thoracic spine, elbow. Plan for x-ray of affected area. FINDINGS: BONES: No acute fracture is present. No bony destructive lesion is seen. Visualized portion of elbow and shoulder joints are unremarkable. SOFT TISSUE: Normal. IMPRESSION: Unremarkable radiographs of the right humerus. Discussed these findings iwth the patient. Advised likely contusion. Encouraged RICE. Will give sling to help with discmofort but I advised passive ROM to prevent adhesive capsulitis. Demonstrated and printed these off for her. Advised to use the sling sparingly. Advised f/u with PCP in the next 1-2 weeks for reevalution. Return precautions discussed. All of her questions and concerns were addressed, she is in agreement with this plan. HPI General Date/Time Provider Initiated Documentation: 09/06/21 10:58. Limitations to Documentation: no limitations. Information obtained by: patient, family and RN notes reviewed. History of Present Illness 26 year old F presents to the emergency department with the chief complaint of right arm pain, described as severe, with intensity rated at 8. Quality is described as aching, and is localized to the right and upper extremity. Patient reports no radiation. Patient started experiencing this hour(s) and it has been constant. Immobilization improves symptom(s), Movement worsens symptoms . Patient notes no other symptoms.. Patient did receive the following treatments prior to arrival, none Related Data Home Medications Medication Instructions Recorded Confirmed garlic 1 tab PO DAILY 02/14/17 04/13/21 acetaminophen 325 mg tablet 650 mg PO Q4H PRN PRN 10/02/17 04/13/21 (Tylenol) epinephrine 0.3 mg/0.3 mL 0.3 mg (0.3 mL) IM ONCE PRN 04/11/18 04/13/21 injection, auto-injector (EpiPen anaphylaxis #2 ea 2-Steve) omeprazole magnesium 20 mg 20 mg PO DAILY #90 tabs 06/18/20 04/13/21 tablet,delayed release (Prilosec OTC) Previous Rx's Medication Instructions Recorded epinephrine 0.3 mg/0.3 mL 0.3 mg (0.3 mL) IM ONCE PRN 04/11/18 injection, auto-injector (EpiPen anaphylaxis #2 ea 2-Steve) omeprazole magnesium 20 mg 20 mg PO DAILY #90 tabs 06/18/20 tablet,delayed release (Prilosec OTC) Allergies Allergy/AdvReac Type Severity Reaction Status Date / Time codeine Allergy Severe Hives Verified 09/06/21 11:49 kiwi Allergy Intermediate Verified 09/06/21 11:49 ciprofloxacin [From Cipro] AdvReac Intermediate vomiting Verified 09/06/21 11:49 General Stated Complaint: Orthopedic JOSELIN: 4 Review of Systems Constitutional Constitutional: Reports as per HPI, Denies chills, Denies fever(s), Denies headache(s) and Reports weakness (feel like RUE is weak d/t pain in lateral upper arm) ENT Ears, Nose, Mouth, and Throat: Denies headache(s) Cardiovascular Cardiovascular: Reports as per HPI Respiratory Respiratory: Reports as per HPI and Denies cough Musculoskeletal Musculoskeletal: Reports as per HPI and Denies tingling Integumentary/Breasts Skin/Breast: Reports as per HPI, Denies rash and Denies wounds Neurologic Neurologic: Reports as per HPI, Denies headache(s), Denies tingling, Denies paresthesias and Reports weakness (feel like RUE is weak d/t pain in lateral upper arm) PFSH All Active Problems (Updated 09/06/21 @ 13:30 by TARYN Campo) Pneumonia (Acute) Chest pain (Acute) Cough (Acute) Contusion of arm, right (Acute) Allergies (Acute) Pyelonephritis (Acute) Chest pain (Acute) Pharyngitis (Acute) Epigastric abdominal pain (Acute) Viral syndrome (Acute) Migraine with aura and without status migrainosus (Acute) Severe concussion (Acute 02/22/17) Psoriasis (Acute 09/13/17) Moderately severe depression (Acute 02/22/17) Anxiety and depression (Acute 07/24/17) Medical History Congenital shrklw-qsvcogi-yjdjo reflux Family History Mother Depression Hyperlipidemia Father Depression Brother Asthma ADHD Maternal Grandfather Heart disease Maternal Grandmother Heart disease Brother Autism Paternal Grandfather No problems noted. Paternal Grandmother Glaucoma Social History Smoking/Tobacco Use Status: Never Smoking risk assessment performed?: Yes Alcohol Intake: current Alcohol Intake frequency: holidays/special occasions only Alcohol type: beer and hard liquor Drug use: Never Substance use type: does not use Caregiver/Support person: No Household members: spouse and significant other Housing: house Communication Needs: None current occupation: [employer] Pets and animals: Yes Pets and animals: cat(s) and dog(s) Sexually active: Yes Do you think of yourself as: straight/heterosexual Current gender identity: female What is your relationship status?: living with partner How often do you talk on the phone with friends or family?: three or more times per week How often do you get together with friends or relatives?: three or more times per week How often do you attend hoahaoism or roman catholic services?: decline to answer Do you belong to any clubs or organized social groups?: yes Panel score (0-1 are the most socially isolated patients): 3 What type of physical activity do you participate in: walking Duration: 30-45 minutes/day Frequency: 3-4 times per week Kendal/Anglican: No preference Special kendal needs: No Seatbelt use: always Helmet use: Yes Helmet use: always Drive intox or ride w/intox delivery truck driver heavy: No Do you feel safe at home: Yes Do you feel safe in your relationship?: Yes Exam Const General: cooperative, healthy appearing, comfortable, no acute distress, well developed and well groomed Nutritional Appearance: average body habitus and well nourished Orientation: alert and awake Resp Effort & Inspection: normal respiratory effort, able to speak in complete sentences and no respiratory distress Cardio Rate: regular rate Rhythm: regular rhythm Back/Spine/Pelvis Cervical Spine: cervical ROM normal, No cervical spinal tenderness and No step off deformity Thoracic/Lumbar Spine: thoracic and lumbar spine normal to inspection Skin General skin exam: no rashes or lesions noted Lesions: no lesions Rashes: no rashes Trauma: no lacerations or abrasions Neuro General: patient alert and patient awake Cognition: normal cognition Speech: speech normal Gait: normal gait Motor: muscle tone normal throughout Sensory Exam: no sensory deficits noted Extrem Right upper extremity: normal to inspection, normal capillary refill, shoulder/upper arm Details: normal to inspection, tenderness (mid lateral humerus) and axillary nerve sensory function normal; no swelling, ROM limited, no abrasions, no ecchymosis, no crepitus, no deformity and no unusual warmth, elbow/forearm Details: normal to inspection and normal ROM; no tenderness and no swelling, wrist Details: normal to inspection and normal ROM; no tenderness and no swelling and hand Details: normal to inspection, normal capillary refill, neuromotor exam normal, neurosensory exam normal and vascular exam Details: radial pulse present and normal capillary refill; no tenderness; ROM limited (limited FE at shoulder d/t pain in the lateral humerus) Psych Appearance: grossly normal and well kempt Mental Status: mental status grossly normal Speech and Movement: speech and movement normal Course Vital Signs Vital signs: Vital Signs Temperature 36.6 C 09/06/21 10:45 Pulse 78 09/06/21 10:45 Respiratory Rate 17 09/06/21 10:45 Blood Pressure 141/95 H 09/06/21 10:45 Pulse Oximetry 99 09/06/21 10:45 Temperature 36.6 C 09/06/21 10:45 Temperature Source Oral 09/06/21 10:45 Pulse 78 09/06/21 10:45 Respiratory Rate 17 09/06/21 10:45 Respiratory Effort Non-Labored 09/06/21 10:47 Blood Pressure 141/95 H 09/06/21 10:45 Blood Pressure Position Sitting 09/06/21 10:45 Pulse Oximetry 99 09/06/21 10:45 Oxygen Delivery Method Room Air 09/06/21 10:45 Oxygen Flow Rate 0 09/06/21 10:45 Pain Level 8 09/06/21 10:45 PAWSS Have you Been Recently Intoxicated or Drunk Within the Last 30 days?: No Have you Ever Experienced Previous Episodes of Alcohol Withdrawal?: No Have you ever Experienced Withdrawal Seizures?: No Have you ever Experienced Delirium Tremens(DT)s?: No Have you ever undergone Alcohol Rehabilitation Treatment (i.e, inpt ot outpatient treatment programs)?: No Have you ever Experienced Blackouts?: No Have you ever Combined Alcohol with other Downers within the last 90 days?: No Have you ever Combined Alcohol with any other Substance of Abuse during the last 90 days?: No Positive Blood Alcohol level on Presentation? [PCS.BAL]: No Evidence of Increased Autonomic Activity (i.e. HR>120, tremor, sweating, agitation, nausea)?: No Result: 0
--- NOTE | 2021-09-06 11:52 | DI.RAD_ITS ---
Exam(s) XR HUMERUS RT EXAM: XR HUMERUS RT CLINICAL HISTORY: FOOSH. TECHNIQUE: 2D digital imaging was performed. COMPARISON: No exams were available for comparison FINDINGS: BONES: No acute fracture is present. No bony destructive lesion is seen. Visualized portion of elbow and shoulder joints are unremarkable. SOFT TISSUE: Normal. IMPRESSION: Unremarkable radiographs of the right humerus. DATA REPOSITORY: RADIATION DOSE DELIVERED:
== END 2021-09-06 13:41 | disposition home or self-care (01) ==
PROVIDERS: Emergency Provider Physician Assistant; PCP Internal Medicine
DX: S40.021A Contusion of right upper arm, initial encounter (principal); W01.0XXA Fall on same level from slipping, tripping and stumbling without subsequent striking against object, initial encounter
CPT/HCPCS: 99283; 73060

== ENCOUNTER 2022-01-19 08:33 | Emergency (ER) | payer OTHER, SELFPAY ==
[2022-01-19 09:30] VITALS: BP 145/99; PULSE 132; RESP 18; TEMP 37.4; O2SAT 99
[2022-01-19 09:46] LABS: Source Nasal/Nares
[2022-01-19 10:25] LABS: COVID-19 PCR Negative (Negative)
--- NOTE | 2022-01-19 11:02 | ED.GENADUL_ITS ---
Discharge Plan Disposition Patient Disposition: HOME Condition: Stable Discharge Details Clinical Impression: URI (upper respiratory infection) Primary Care Provider: Julien Sevilla ED Provider: [place] Home Meds and New Rx's Prescriptions: New benzonatate 200 mg capsule 200 mg PO TID PRN (Reason: cough) Qty: 30 0RF Continued epinephrine [EpiPen 2-Steve] 0.3 mg/0.3 mL auto-injector 0.3 mg IM ONCE PRN (Reason: anaphylaxis) Qty: 2 0RF Rx Instructions: inject into anterolateral area of thigh (preferred) omeprazole magnesium [Prilosec OTC] 20 mg tablet,delayed release (DR/EC) 20 mg PO DAILY Qty: 90 3RF garlic 1 EACH tablet 1 tab PO DAILY acetaminophen [Tylenol] 325 MG tablet 650 mg PO Q4H PRN PRN Discharge Instructions Instructions: Upper Respiratory Infection (ED) Additional Instructions: If you have any new or significant worsening of symptoms feel free to return the emergency department for reassessment. Otherwise it is very important that you stay well-hydrated. You may continue to take [id number] cough and cold medication as directed on packaging. If you are not seeing signs of improvement in the next week please follow-up with primary care provider for reassessment. Stand Alone Forms: Work Release Referrals: Julien Sevilla MD [Primary Care Provider] - 1 week (If not improving) Discharge Data Discharge Date/Time-TO BE ENTERED AT DEPARTURE: 01/19/22 12:36 Medical Decision Making Patient presenting to the emergency department for chief complaint of viral cold symptoms. She states that this started within the last 24 hours. She was exposed to her boss who has recently tested positive for COVID. Patient is unvaccinated but does state history of 2 other episodes of COVID. Patient mainly states significant amount of body aches and discomfort. Physical exam shows tachycardic patient that is overall ill in appearance but nontoxic and otherwise stable. No signs of meningitis, do not feel that patient has septic, clear lung sounds and patient is not hypoxic. We will perform rapid COVID testing and give normal saline, Tylenol, and Toradol to see if this helps with patient's symptoms. Patient is negative for COVID and she reports being negative with home antigen testing. Suspect other viral etiology for upper respiratory infection. Will encourage continued use of jmvg-zce-anmpdey medications along with rest and follow-up if not improving in the next week. After discussion of diagnosis and plan of care patient has no further needs, questions, or concerns and states clear understanding to return to the emergency department for any worsening symptoms. This documentation was generated using Zase dictation system, please disregard any oddities of phrase or misspellings. Lab Data Lab results reviewed: Yes I reviewed the patient's lab results. HPI General Mode of arrival: ambulatory . Date/Time Provider Initiated Documentation: 01/19/22 09:34 . Limitations to Documentation: no limitations . Information obtained by: patient . History of Present Illness 26 year old F presents to the emergency department with the chief complaint of fever body aches cough sore throat, described as moderate, Quality is described as aching, Patient reports no radiation. Patient started experiencing this day(s) (1) and it has been constant. No relieving factors improve symptom(s), Other factors that worsen symptoms (Exposure to Covid) . Patient did receive the following treatments prior to arrival, other (Nyquil last night) Related Data Home Medications Medication Instructions Recorded Confirmed garlic 1 tab PO DAILY 02/14/17 01/19/22 acetaminophen 325 mg tablet 650 mg PO Q4H PRN PRN 10/02/17 01/19/22 (Tylenol) epinephrine 0.3 mg/0.3 mL 0.3 mg (0.3 mL) IM ONCE PRN 04/11/18 01/19/22 injection, auto-injector (EpiPen anaphylaxis #2 ea 2-Steve) omeprazole magnesium 20 mg 20 mg PO DAILY #90 tabs 06/18/20 01/19/22 tablet,delayed release (Prilosec OTC) benzonatate 200 mg capsule 200 mg PO TID PRN cough #30 caps 01/19/22 Previous Rx's Medication Instructions Recorded epinephrine 0.3 mg/0.3 mL 0.3 mg (0.3 mL) IM ONCE PRN 04/11/18 injection, auto-injector (EpiPen anaphylaxis #2 ea 2-Steve) omeprazole magnesium 20 mg 20 mg PO DAILY #90 tabs 06/18/20 tablet,delayed release (Prilosec OTC) benzonatate 200 mg capsule 200 mg PO TID PRN cough #30 caps 01/19/22 Allergies Allergy/AdvReac Type Severity Reaction Status Date / Time codeine Allergy Severe Hives Verified 01/19/22 09:35 kiwi Allergy Intermediate Verified 01/19/22 09:35 ciprofloxacin [From Cipro] AdvReac Intermediate vomiting Verified 01/19/22 09:35 General Stated Complaint: GenMedical JOSELIN: 4 Review of Systems Constitutional Constitutional: Reports body ache(s), Reports chills, Reports fever(s), Reports headache(s) and Reports malaise Eyes Eyes: Denies eye discharge ENT Ears, Nose, Mouth, and Throat: Reports as per HPI, Denies ear discharge, Denies otalgia, Reports headache(s), Reports nasal congestion, Denies neck pain, Reports sore throat and Denies throat swelling Cardiovascular Cardiovascular: Denies chest pain and Denies dyspnea Respiratory Respiratory: Reports cough and Denies dyspnea Gastrointestinal Gastrointestinal: Denies abdominal pain, Denies diarrhea, Denies nausea and Denies vomiting Musculoskeletal Musculoskeletal: Denies joint swelling and Denies neck pain Integumentary/Breasts Skin/Breast: Denies rash Neurologic Neurologic: Reports headache(s) Allergic/Immunologic Allergic/Immunologic: Denies throat swelling PFSH All Active Problems (Updated 01/19/22 @ 11:09 by [place] NP) Pneumonia (Acute) Chest pain (Acute) Cough (Acute) URI (upper respiratory infection) (Acute) Allergies (Acute) Pyelonephritis (Acute) Chest pain (Acute) Pharyngitis (Acute) Epigastric abdominal pain (Acute) Viral syndrome (Acute) Migraine with aura and without status migrainosus (Acute) Severe concussion (Acute 02/22/17) Psoriasis (Acute 09/13/17) Moderately severe depression (Acute 02/22/17) Anxiety and depression (Acute 07/24/17) Medical History Congenital xzrtdb-ljqhhvs-korxv reflux Family History Mother Depression Hyperlipidemia Father Depression Brother Asthma ADHD Maternal Grandfather Heart disease Maternal Grandmother Heart disease Brother Autism Paternal Grandfather No problems noted. Paternal Grandmother Glaucoma Social History Smoking/Tobacco Use Status: Never Smoking risk assessment performed?: Yes Alcohol Intake: current Alcohol Intake frequency: holidays/special occasions only Alcohol type: beer and hard liquor Drug use: Never Substance use type: does not use Caregiver/Support person: No Household members: spouse and significant other Housing: house Communication Needs: None current occupation: [employer] Pets and animals: Yes Pets and animals: cat(s) and dog(s) Sexually active: Yes Do you think of yourself as: straight/heterosexual Current gender identity: female What is your relationship status?: living with partner How often do you talk on the phone with friends or family?: three or more times per week How often do you get together with friends or relatives?: three or more times per week How often do you attend gnosticist or temple services?: decline to answer Do you belong to any clubs or organized social groups?: yes Panel score (0-1 are the most socially isolated patients): 3 What type of physical activity do you participate in: walking Duration: 30-45 minutes/day Frequency: 3-4 times per week Kendal/Hoahaoism: No preference Special kendal needs: No Seatbelt use: always Helmet use: Yes Helmet use: always 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 Do you feel safe at home: Yes Do you feel safe in your relationship?: Yes Exam Const General: cooperative, comfortable and no acute distress Orientation: alert and awake [facility] Head: normal to inspection, normocephalic and atraumatic Ears: hearing grossly normal bilaterally and TM's normal bilaterally General nose exam: external nose normal Face and sinus: no erythema Mouth: oral mucosae normal, no drooling, no muffled voice and no trismus Throat: posterior oropharynx normal Neck Neck: normal visual inspection, full ROM, no lymphadenopathy, no meningeal signs, trachea midline and supple Resp Effort & Inspection: normal respiratory effort, able to speak in complete sentences and cough Quality of cough: dry Auscultation: clear to auscultation bilaterally Cardio Rate: tachycardic Rhythm: regular rhythm Heart Sounds: S1 normal, S2 normal, normal S1 and S2, no click, no gallops, no murmurs and no rubs Skin General skin exam: no rashes or lesions noted and dry skin (warm) Neuro General: patient alert, patient awake, patient oriented x3, gait normal and moves all extremities Cognition: normal cognition Speech: speech normal Course Vital Signs Vital signs: Vital Signs Temperature 37.4 C 01/19/22 09:30 Pulse 132 H 01/19/22 09:30 Respiratory Rate 18 01/19/22 09:30 Blood Pressure 145/99 H 01/19/22 09:30 Pulse Oximetry 99 01/19/22 09:30 Temperature 37.4 C 01/19/22 09:30 Temperature Source Oral 01/19/22 09:30 Pulse 132 H 01/19/22 09:30 Respiratory Rate 18 01/19/22 09:30 Respiratory Effort Non-Labored 01/19/22 09:33 Blood Pressure 145/99 H 01/19/22 09:30 Blood Pressure Position Sitting 01/19/22 09:30 Pulse Oximetry 99 01/19/22 09:30 Oxygen Delivery Method Room Air 01/19/22 09:30 Oxygen Flow Rate 0 01/19/22 09:30 Pain Level 10 01/19/22 09:30 Lab/Test Results Lab/Test Results: Laboratory Tests Range/Units 01/19/22 09:40 COVID-19 Source Nasal/Nares SARS-CoV-2 (PCR) (Negative) Negative PAWSS Have you Been Recently Intoxicated or Drunk Within the Last 30 days?: No Have you Ever Experienced Previous Episodes of Alcohol Withdrawal?: No Have you ever Experienced Withdrawal Seizures?: No Have you ever Experienced Delirium Tremens(DT)s?: No Have you ever undergone Alcohol Rehabilitation Treatment (i.e, inpt ot outpatient treatment programs)?: No Have you ever Experienced Blackouts?: No Have you ever Combined Alcohol with other Downers within the last 90 days?: No Have you ever Combined Alcohol with any other Substance of Abuse during the last 90 days?: No Positive Blood Alcohol level on Presentation? [PCS.BAL]: No Evidence of Increased Autonomic Activity (i.e. HR>120, tremor, sweating, agitation, nausea)?: No Result: 0
[2022-01-19] MEDS: Ketorolac 15 MG/ML VIAL IVP (11:03)
[2022-01-19] MEDS: ACETAMINOPHEN 1,000 MG/100 ML BTL 400 MG IVPB (11:03)
[2022-01-19] MEDS: Normal Saline 1,000 ML 1000 ML IV (11:03)
[2022-01-19 12:34] VITALS: BP 126/70; PULSE 68; RESP 16; O2SAT 98
== END 2022-01-19 12:36 | disposition home or self-care (01) ==
PROVIDERS: Emergency Provider Nurse Practitioner Family; PCP Internal Medicine
DX: J06.9 Acute upper respiratory infection, unspecified (principal); Z28.310 Unvaccinated for COVID-19; Z20.822 Contact with and (suspected) exposure to COVID-19
CPT/HCPCS: 87635; 96361; 96365; 96375; 99284; 99283; J0131; J1885

== ENCOUNTER 2022-06-06 17:38 | Emergency (ER) | payer OTHER, SELFPAY ==
[2022-06-06] VITALS (24 sets, daily range): BP systolic 105–142; BP diastolic 54–74; PULSE 98–122; RESP 15–27; TEMP 36.9; O2SAT 95–100
--- NOTE | 2022-06-06 17:51 | W.ED.GENAD ---
Discharge Plan Disposition Patient Disposition: Home Condition: Improving Discharge Details Clinical Impression: Nausea vomiting and diarrhea, Dehydration Primary Care Provider: Chayo Howard ED Provider: Isabelle Brown Home Meds and New Rx's Prescriptions: No Action epinephrine [EpiPen 2-Steve] 0.3 mg/0.3 mL auto-injector 0.3 mg IM ONCE PRN (Reason: anaphylaxis) Qty: 2 0RF Rx Instructions: inject into anterolateral area of thigh (preferred) omeprazole magnesium [Prilosec OTC] 20 mg tablet,delayed release (DR/EC) 20 mg PO DAILY Qty: 90 3RF garlic 1 EACH tablet 1 tab PO DAILY Discharge Instructions Instructions: Dehydration (ED), Acute Nausea and Vomiting (ED) Additional Instructions: Take the nausea medication as directed approximately 20 to 30 minutes prior to eating or drinking anything. Advance diet as tolerated. [place] diet. Stay away from anything spicy fried fatty or dairy. At this time I am unable to rule out urinary tract infection or kidney infection. Please return to the ER for any worsening symptoms, continued vomiting despite the medications or any concerns. Your magnesium was slightly low. Please increase foods with high magnesium content over the next few days such as spinach avocado, bananas, brown rice and whole grains. Follow up with primary care provider in 3-5 days. Return to ED sooner if any worsening or concerns. Increase oral fluids. Please drink electrolyte drink while having diarrhea. Please take Tylenol or Ibuprofen with food every 4-6 hours as needed for pain and fever. Stand Alone Forms: Work Release Referrals: Chayo Howard [Primary Care Provider] - 5 days Medical Decision Making 27-year-old female presents to the ER with chief complaint of nausea vomiting diarrhea, chills and body aches which began today. She reports that she does have sick contacts family members with same symptoms. She reports that she was diagnosed with a URI with sinus type symptoms last week. She reports being negative for flu RSV COVID. Denies any dysuria does report some back pain is unable to keep any fluids down. Past medical history includes congenital vesicular ureteral renal reflux, anxiety depression, migraines, pyelonephritis, pneumonia. Work-up ordered including CBC, CMP, lipase, urine POC, urinalysis normal saline and Zofran. Patient is tolerating ice chips without difficulty reports that nausea is better she is complaining of some body aches Toradol ordered, magnesium 400 p.o., additional liter of fluid ordered. Awaiting urinalysis at this time. Patient reevaluation, she is still slightly tachycardic at a rate of 109, she is taking p.o. without difficulty she reports feeling much better. She has had 2 L of normal saline. She reports that she still does not feel like as if she needs to urinate. I did discuss with her that I cannot rule out a UTI or kidney infection without seeing her urine. She prefers to be discharged home. I did offer imaging which patient declined at this time. I discussed return instructions and she understands that her work-up is not complete at this time. She is able to make her own medical decisions and is not appear to be under the influence of any substances. Patient to be discharged with Shaniqua to go. This text was generated using [employer] system, please disregard any oddities of phrase or misspellings. Lab Data Lab results reviewed: Yes I reviewed the patient's lab results. Labs: Laboratory Tests Range/Units 06/06/22 06/06/22 18:05 18:05 WBC (4.4-10.8) 10^3/uL 12.66 H RBC (3.93-5.22) 10^6/uL 5.44 H Hgb (11.2-15.7) g/dL 16.1 H Hct (36.0-46.0) % 47.5 H MCV (80-95) fL 87 MCH (27.0-33.0) pg 29.6 MCHC (32.0-36.0) % 33.9 RDW (11.7-14.6) % 11.9 Plt Count (130-400) 10^3/uL 277 MPV (8.0-11.0) fL 9.2 Immature Gran % 0.3 Neutrophils % 92.9 Lymphocytes % 2.9 Monocytes % 3.6 Eosinophils % 0.1 Basophils % 0.2 Nucleated RBC % (0.0-0.3) % 0.0 Absolute Neutrophils (1.2-6.7) 10^3/uL 11.76 H Absolute Lymphocytes (1.2-3.4) 10^3/uL 0.37 L Absolute Monocytes (0.1-0.8) 10^3/uL 0.46 Absolute Eosinophils (0.0-0.7) 10^3/uL 0.01 Absolute Basophils (0.0-0.2) 10^3/uL 0.03 Sodium (136-145) mmol/L 141 Potassium (3.5-5.1) mmol/L 3.9 Chloride (98-107) mmol/L 103 Carbon Dioxide (21.0-32.0) mmol/L 26.5 Anion Gap (3-11) mmol/L 11.5 H BUN (7-18) mg/dL 17 Creatinine (0.55-1.02) mg/dL 1.2 H Est GFR (CKD-EPI 2020) (mL/min/1.73m2) 62.84 Glucose (74-106) mg/dL 118 H Calcium (8.5-10.1) mg/dL 9.4 Magnesium (1.8-2.4) mg/dL 1.6 L Total Bilirubin (0.2-1.0) mg/dL 0.5 AST (15-37) U/L 20 ALT (14-59) U/L 29 Alkaline Phosphatase (46-116) U/L 85 Total Protein (6.4-8.2) g/dL 8.9 H Albumin (3.4-5.0) g/dL 4.6 Lipase (16-77) U/L 35 HPI General Mode of arrival: ambulatory. Date/Time Provider Initiated Documentation: 06/06/22 17:40. Limitations to Documentation: no limitations. Information obtained by: patient, RN notes reviewed and old records reviewed. HPI Narrative: 27-year-old female presents to the ER with chief complaint of nausea vomiting diarrhea, chills and body aches which began today. She reports that she does have sick contacts family members with same symptoms. She reports that she was diagnosed with a URI with sinus type symptoms last week. She reports being negative for flu RSV COVID. Denies any dysuria does report some back pain is unable to keep any fluids down. Past medical history includes congenital vesicular ureteral renal reflux, anxiety depression, migraines, pyelonephritis, pneumonia. Related Data Home Medications Medication Instructions Recorded Confirmed garlic 1 tab PO DAILY 02/14/17 06/06/22 epinephrine 0.3 mg/0.3 mL 0.3 mg (0.3 mL) IM ONCE PRN 04/11/18 06/06/22 injection, auto-injector (EpiPen anaphylaxis #2 ea 2-Steve) omeprazole magnesium 20 mg 20 mg PO DAILY #90 tabs 06/18/20 06/06/22 tablet,delayed release (Prilosec OTC) Previous Rx's Medication Instructions Recorded epinephrine 0.3 mg/0.3 mL 0.3 mg (0.3 mL) IM ONCE PRN 04/11/18 injection, auto-injector (EpiPen anaphylaxis #2 ea 2-Steve) omeprazole magnesium 20 mg 20 mg PO DAILY #90 tabs 06/18/20 tablet,delayed release (Prilosec OTC) Allergies Allergy/AdvReac Type Severity Reaction Status Date / Time codeine Allergy Severe Hives Verified 06/06/22 17:46 kiwi Allergy Intermediate Verified 06/06/22 17:46 ciprofloxacin [From Cipro] AdvReac Intermediate vomiting Verified 06/06/22 17:46 General Stated Complaint: Abd Prob JOSELIN: 3 Review of Systems All systems reviewed & are unremarkable except as noted in HPI and below Constitutional Constitutional: Reports body ache(s), Reports chills and Reports headache(s) ENT Ears, Nose, Mouth, and Throat: Reports headache(s) Gastrointestinal Gastrointestinal: Reports cramping (Prior to emesis), Reports diarrhea, Reports nausea and Reports vomiting Neurologic Neurologic: Reports headache(s) PFSH All Active Problems (Updated 06/06/22 @ 20:54 by Isabelle Brown NP) Pneumonia (Acute) Chest pain (Acute) Cough (Acute) Nausea vomiting and diarrhea (Acute) Dehydration (Acute) Allergies (Acute) Pyelonephritis (Acute) Chest pain (Acute) Pharyngitis (Acute) Epigastric abdominal pain (Acute) Viral syndrome (Acute) Migraine with aura and without status migrainosus (Acute) Severe concussion (Acute 02/22/17) Psoriasis (Acute 09/13/17) Moderately severe depression (Acute 02/22/17) Anxiety and depression (Acute 07/24/17) Medical History Congenital twniyn-ivuxurg-wawng reflux Family History Mother Depression Hyperlipidemia Father Depression Brother Asthma ADHD Maternal Grandfather Heart disease Maternal Grandmother Heart disease Brother Autism Paternal Grandfather No problems noted. Paternal Grandmother Glaucoma Social History Smoking/Tobacco Use Status: Never Smoking risk assessment performed?: Yes Alcohol Intake: current Alcohol Intake frequency: holidays/special occasions only Alcohol type: beer and hard liquor Drug use: Never Substance use type: does not use Caregiver/Support person: No Household members: spouse and significant other Housing: house Communication Needs: None current occupation: [employer] Pets and animals: Yes Pets and animals: cat(s) and dog(s) Sexually active: Yes Do you think of yourself as: straight/heterosexual Current gender identity: female What is your relationship status?: living with partner How often do you talk on the phone with friends or family?: three or more times per week How often do you get together with friends or relatives?: three or more times per week How often do you attend christian or hoahaoism services?: decline to answer Do you belong to any clubs or organized social groups?: yes Panel score (0-1 are the most socially isolated patients): 3 What type of physical activity do you participate in: walking Duration: 30-45 minutes/day Frequency: 3-4 times per week Kendal/Church: No preference Special kendal needs: No Seatbelt use: always Helmet use: Yes Helmet use: always Drive intox or ride w/intox coal tram driver: No Do you feel safe at home: Yes Do you feel safe in your relationship?: Yes Exam Narrative Exam Narrative: Constitutional: Alert and oriented x3. Appears stated age. Normal body habitus. Head: Normocephalic, no trauma. Eyes: Pupils PERRL, Red reflex noted, EOM's intact. Eyelids symmetrical without lesions, discharge, or swelling. ENT: Bilateral TM's WNL, External ear normal to inspection, no mastoid TTP, swelling, or erythema, Nasal turbinates WNL, no nasal discharge. Normal dentition, Posterior pharynx WNL, no exudate. Chest: Sinus tachycardia with a rate of 115, normal S1, S2, distal pulses intact. Resp: Lungs clear to auscultation bilaterally, no wheezes, rales, or rhonchi. Abdomen: Soft, non-distended, nontender to palpation all 4 quadrants, hypoactive bowel sounds all 4 quads. Musculoskeletal: Normal gait, 5/5 strength to all four extremities. Skin: No suspicious rashes or lesions. Capillary refill less than 2 sec. Neurologic: Cranial nerves II-XII intact. Alert and oriented x 3. Motor: No deficits noted. Sensory: Intact bilaterally all 4 extremities. Hematologic/Lymphatic: No ecchymosis, no lymphadenopathy. Course Vital Signs Vital signs: Vital Signs Temperature 36.9 C 06/06/22 17:42 Pulse 122 H 06/06/22 17:42 Respiratory Rate 20 06/06/22 17:42 Blood Pressure 142/65 H 06/06/22 17:42 Pulse Oximetry 98 06/06/22 17:42 Temperature 36.9 C 06/06/22 17:42 Temperature Source Oral 06/06/22 17:42 Pulse 122 H 06/06/22 17:42 Respiratory Rate 20 06/06/22 17:42 Blood Pressure 142/65 H 06/06/22 17:42 Blood Pressure Position Sitting 06/06/22 17:42 Pulse Oximetry 98 06/06/22 17:42 Oxygen Delivery Method Room Air 06/06/22 17:42 Oxygen Flow Rate 0 06/06/22 17:42
[2022-06-06] MEDS: Ondansetron 4 MG/2 ML VIAL IVP (18:06)
[2022-06-06] MEDS: Normal Saline 1,000 ML 1000 ML IV ×2 (18:07→20:02)
[2022-06-06 18:15] LABS: Abs Immature Grans 0.04 10^3/uL (0.0-0.06); Absolute Basophil Count 0.03 10^3/uL (0.0-0.2); Absolute Eosinophil Count 0.01 10^3/uL (0.0-0.7); Absolute Lymphocyte Count 0.37 10^3/uL (1.2-3.4); Absolute Monocyte Count 0.46 10^3/uL (0.1-0.8); Basophils % 0.2; Eosinophils % 0.1; HCT 47.5 % (36.0-46.0); HGB 16.1 g/dL (11.2-15.7); Immature Grans % 0.3; Lymphocytes % 2.9; MCH 29.6 pg (27.0-33.0); MCHC 33.9 % (32.0-36.0); MCV 87 fL (80-95); MPV 9.2 fL (8.0-11.0); Monocytes % 3.6; Neutrophils % 92.9; Platelet Count 277 10^3/uL (130-400); RBC 5.44 10^6/uL (3.93-5.22); RDW 11.9 % (11.7-14.6); RDW-SD 38.4 fL; WBC 12.66 10^3/uL (4.4-10.8)
[2022-06-06 18:17] LABS: Absolute Neutrophil Count 11.76 10^3/uL (1.2-6.7)
[2022-06-06 18:46] LABS: ALT 29 U/L (14-59); AST 20 U/L (15-37); Albumin 4.6 g/dL (3.4-5.0); Alkaline Phosphatase 85 U/L (46-116); Anion Gap 11.5 mmol/L (3-11); BUN 17 mg/dL (7-18); Bilirubin, Total 0.5 mg/dL (0.2-1.0); CO2 26.5 mmol/L (21.0-32.0); CREATININE 1.2 mg/dL (0.55-1.02); Calcium 9.4 mg/dL (8.5-10.1); Chloride 103 mmol/L (98-107); Estimated GFR 62.84 (mL/min/1.73m2); Glucose 118 mg/dL (74-106); Lipase 35 U/L (16-77); Magnesium 1.6 mg/dL (1.8-2.4); Potassium 3.9 mmol/L (3.5-5.1); Sodium 141 mmol/L (136-145); Total Protein 8.9 g/dL (6.4-8.2)
[2022-06-06] MEDS: Ketorolac 15 MG/ML VIAL IVP (19:31)
[2022-06-06] MEDS: Magnesium Oxide 400 MG TAB PO (19:31)
== END 2022-06-06 21:15 | disposition home or self-care (01) ==
PROVIDERS: Emergency Provider Registered Nurse Emergency; PCP Nurse Practitioner Family
DX: E86.0 Dehydration (principal); R19.7 Diarrhea, unspecified; R11.2 Nausea with vomiting, unspecified; E83.42 Hypomagnesemia
CPT/HCPCS: 36415; 80053; 83690; 96361; 96374; 96375; 99284; 81003; 83735; 85025; J1885; J2405

== ENCOUNTER 2023-05-02 07:03 | Emergency (ER) | payer SELFPAY ==
[2023-05-02 07:05] VITALS: BP 138/86; PULSE 101; RESP 17; TEMP 37.8; O2SAT 97
[2023-05-02 07:10] VITALS: BP 138/86; PULSE 101; RESP 17; TEMP 37.8; O2SAT 97
--- NOTE | 2023-05-02 07:24 | ED.GENADUL_ITS ---
HPI General Stated Complaint: RespSymp JOSELIN: 4 Date/Time Provider Initiated Documentation: 05/02/23 07:11. HPI Narrative: 27-year-old male presents with fatigue dry cough sore throat body aches over the last day. Exposed to multiple people with flu Related Data Home Medications Medication Instructions Recorded Confirmed garlic 1 tab PO DAILY 02/14/17 05/02/23 epinephrine 0.3 mg/0.3 mL 0.3 mg (0.3 mL) IM ONCE PRN 04/11/18 05/02/23 injection, auto-injector (EpiPen anaphylaxis #2 ea 2-Steve) omeprazole magnesium 20 mg 20 mg PO DAILY #90 tabs 06/18/20 05/02/23 tablet,delayed release (Prilosec OTC) citalopram 10 mg tablet 10 mg PO DAILY 05/02/23 05/02/23 Previous Rx's Medication Instructions Recorded epinephrine 0.3 mg/0.3 mL 0.3 mg (0.3 mL) IM ONCE PRN 04/11/18 injection, auto-injector (EpiPen anaphylaxis #2 ea 2-Steve) omeprazole magnesium 20 mg 20 mg PO DAILY #90 tabs 06/18/20 tablet,delayed release (Prilosec OTC) Allergies Allergy/AdvReac Type Severity Reaction Status Date / Time codeine Allergy Severe Hives Verified 05/02/23 07:11 kiwi Allergy Intermediate Verified 05/02/23 07:11 ciprofloxacin [From Cipro] AdvReac Intermediate vomiting Verified 05/02/23 07:11 Review of Systems Narrative: Review of Systems Constitutional: Fever, fatigue Eyes: negative ENT: Sore throat Cardiovascular: negative Respiratory: Cough Gastrointestinal: negative : negative Musculoskeletal: negative Skin: negative Neurologic: negative Psych: negative PFSH All Active Problems (Updated 05/02/23 @ 07:36 by Tripp Jenkins MD) COVID (Acute) Cough (Acute) Chest pain (Acute) Pneumonia (Acute) Allergies (Acute) Pyelonephritis (Acute) Chest pain (Acute) Pharyngitis (Acute) Epigastric abdominal pain (Acute) Viral syndrome (Acute) Migraine with aura and without status migrainosus (Acute) Severe concussion (Acute 02/22/17) Psoriasis (Acute 09/13/17) Moderately severe depression (Acute 02/22/17) Anxiety and depression (Acute 07/24/17) Medical History Congenital lxasye-wzxrhmh-tdibh reflux Family History Mother Depression Hyperlipidemia Father Depression Brother Asthma ADHD Maternal Grandfather Heart disease Maternal Grandmother Heart disease Brother Autism Paternal Grandfather No problems noted. Paternal Grandmother Glaucoma Social History Smoking/Tobacco Use Status: Never Smoking risk assessment performed?: Yes Alcohol Intake: current Alcohol Intake frequency: holidays/special occasions only Alcohol type: beer and hard liquor Drug use: Never Substance use type: does not use Caregiver/Support person: No Household members: spouse and significant other Housing: house Communication Needs: None current occupation: [employer] Pets and animals: Yes Pets and animals: cat(s) and dog(s) Sexually active: Yes Do you think of yourself as: straight/heterosexual Current gender identity: female What is your relationship status?: living with partner How often do you talk on the phone with friends or family?: three or more times per week How often do you get together with friends or relatives?: three or more times per week How often do you attend jain or jehovah's witness services?: decline to answer Do you belong to any clubs or organized social groups?: yes Panel score (0-1 are the most socially isolated patients): 3 What type of physical activity do you participate in: walking Duration: 15-30 minutes/day Frequency: 1-2 times per week Kendal/Spiritism: Roman Catholic Special kendal needs: No Seatbelt use: always Helmet use: Yes Helmet use: always Drive intox or ride w/intox limousine driver: No Do you feel safe at home: Yes Do you feel safe in your relationship?: Yes PAWSS Have you Been Recently Intoxicated or Drunk Within the Last 30 days?: No Have you Ever Experienced Previous Episodes of Alcohol Withdrawal?: No Have you ever Experienced Withdrawal Seizures?: No Have you ever Experienced Delirium Tremens(DT)s?: No Have you ever undergone Alcohol Rehabilitation Treatment (i.e, inpt ot outpatient treatment programs)?: No Have you ever Experienced Blackouts?: No Have you ever Combined Alcohol with other Downers within the last 90 days?: No Have you ever Combined Alcohol with any other Substance of Abuse during the last 90 days?: No Result: 0 Exam Narrative Exam Narrative: Physical Examination General: alert, awake, cooperative, resting comfortably, no acute distress HEENT: normocephalic, atraumatic; PERRL, EOM intact, conjunctiva normal; no nasal discharge, nasal congestion noted; moist mucous membranes Neck: supple, trachea midline; full ROM Chest: normal to inspection Respiratory: normal respiratory effort, speaking in full sentences Cardiac: Tachycardia, regular rhythm Skin: no lesions, rashes or trauma appreciated Neuro: AAOx3, normal speech, moving all extremities Psych: Appropriate mood and affect Course Vital Signs Vital signs: Vital Signs Temperature 37.8 C H 05/02/23 07:05 Pulse 101 H 05/02/23 07:05 Respiratory Rate 17 05/02/23 07:05 Blood Pressure 138/86 05/02/23 07:05 Pulse Oximetry 97 05/02/23 07:05 Temperature 37.8 C H 05/02/23 07:10 Temperature Source Tympanic 05/02/23 07:10 Pulse 101 H 05/02/23 07:10 Respiratory Rate 17 05/02/23 07:10 Respiratory Effort Short of Breath 05/02/23 07:12 Respiratory Depth Normal 05/02/23 07:12 Blood Pressure 138/86 05/02/23 07:10 Blood Pressure Position Sitting 05/02/23 07:10 Pulse Oximetry 97 05/02/23 07:10 Oxygen Delivery Method Room Air 05/02/23 07:10 Oxygen Flow Rate 0 05/02/23 07:10 Pain Level 8 05/02/23 07:10 Medical Decision Making 27-year-old female presents with fatigue sore throat dry cough body aches over the last day, exposed to multiple people with flu. Hemodynamically stable mildly tachycardic on arrival likely related to fever, high clinical suspicion for viral syndrome such as influenza versus COVID. Lower suspicion for bacterial pneumonia. Must also consider strep pharyngitis given sore throat. Patient appears well-hydrated, patient is neurologically intact and no respiratory distress. Trial of Zofran acetaminophen, will encourage hydration. Likely home with close follow-up. 7: 35 patient is COVID-positive. Rest comfortably no acute distress. We will give some time off of work. Home care instructions and return precautions given Quality:SDOH Health Related Social Needs: No Data to Display Discharge Plan Disposition Patient Disposition: Home Condition: Stable Discharge Details Chief Complaint: RespSymp Clinical Impression: COVID Primary Care Provider: Chayo Howard ED Provider: Tripp Jenkins Home Meds and New Rx's Prescriptions: No Action epinephrine [EpiPen 2-Steve] 0.3 mg/0.3 mL auto-injector 0.3 mg IM ONCE PRN (Reason: anaphylaxis) Qty: 2 0RF Rx Instructions: inject into anterolateral area of thigh (preferred) omeprazole magnesium [Prilosec OTC] 20 mg tablet,delayed release (DR/EC) 20 mg PO DAILY Qty: 90 3RF garlic 1 EACH tablet 1 tab PO DAILY citalopram 10 mg tablet 10 mg PO DAILY Patient Comments: Pt takes every other day Discharge Instructions Instructions: COVID-19 (Coronavirus Disease 2019) (ED) Stand Alone Forms: Work Release
[2023-05-02] MEDS: Acetaminophen 325 MG TAB 650 MG PO (07:30)
[2023-05-02] MEDS: Ondansetron O.D.T. 4 MG TABEF SL (07:30)
== END 2023-05-02 07:43 | disposition home or self-care (01) ==
LOC: ER 08:03
PROVIDERS: Emergency Provider Emergency Medicine; PCP Nurse Practitioner Family
DX: U07.1 COVID-19 (principal)
CPT/HCPCS: 87426; 87880; 99283; 87081

== ENCOUNTER 2023-06-22 06:43 | Emergency (ER) | payer SELFPAY ==
[2023-06-22 06:45] VITALS: BP 151/98; PULSE 77; RESP 18; TEMP 36.6; O2SAT 97
--- NOTE | 2023-06-22 07:15 | DI.CT_ITS ---
Exam(s) CT FACIAL WO EXAM: CT FACIAL WO CLINICAL HISTORY: pain rt max sinus. Evaluate for sinusitis. TECHNIQUE: Imaging Protocol: Axial computed tomography images with coronal and sagittal reformatted images were created and reviewed. COMPARISON: CT HEAD AND CSPINE W/O CONTRAST from 02/14/2017 FINDINGS: AXIAL IMAGES: Frontal sinuses: Normally aerated. Ethmoid air cells: Normally aerated. Maxillary sinuses: Minimal mucosal thickening seen in the floors of the maxillary sinuses. No fluid levels are seen. Sphenoid sinus: Mild mucosal thickening in the left sphenoid sinus. The right sphenoid sinus is angela r. Ostiomeatal complexes: The left ostiomeatal complex is unremarkable. There is mild mucosal thickenin g seen in the right ostiomeatal complex. Osseous nasal septum: Very mild rightward deviation of the nasal septum. Visualized regional soft tissues: No acute findings. Orbits: Unremarkable. Bones: Unremarkable. Mastoid Air Cells: Normally aerated. IMPRESSION: Minimal mucosal thickening in the maxillary sinuses and left sphenoid sinus. No fluid levels are see n. RADIATION DOSE DELIVERED: 634.43mGy.cm Total DLP 634.43mGy.cm Total DLP DATA REPOSITORY: All CT scans at this facility are submitted to the National Radiology Data Registry (NRDR) Dose Index Registry (DIR) with the [employer] (A[employer]). RADIATION OPTIMIZATION: All CT scans at this facility use at least one of these dose optimization te chniques: automated exposure control; mA and/or kV adjustment per patient size (includes targeted exa ms where dose is matched to clinical indication); or iterative reconstruction.
--- NOTE | 2023-06-22 07:27 | ED.GENADUL_ITS ---
Discharge Plan Disposition Patient Disposition: Home Condition: Stable Discharge Details Clinical Impression: Acute facial pain, Headache Primary Care Provider: Chayo Howard ED Provider: Eleazar Lentz Home Meds and New Rx's Prescriptions: Continued epinephrine [EpiPen 2-Steve] 0.3 mg/0.3 mL auto-injector 0.3 mg IM ONCE PRN (Reason: anaphylaxis) Qty: 2 0RF Rx Instructions: inject into anterolateral area of thigh (preferred) omeprazole magnesium [Prilosec OTC] 20 mg tablet,delayed release (DR/EC) 20 mg PO DAILY Qty: 90 3RF garlic 1 EACH tablet 1 tab PO DAILY citalopram 10 mg tablet 10 mg PO DAILY Patient Comments: Pt takes every other day Discharge Instructions Instructions: Acute Headache (ED) Additional Instructions: Please contact your primary care physician to arrange follow-up. Please follow-up with neurology. Return to the ER immediately for any worsening or new concerning symptoms. Stand Alone Forms: Work Release Referrals: [facility] [Provider Group] Chayo Howard [Primary Care Provider] - Discharge Data Discharge Date/Time-TO BE ENTERED AT DEPARTURE: 06/22/23 10:47 HPI General Mode of arrival: ambulatory . Date/Time Provider Initiated Documentation: 06/22/23 07:06 . Limitations to Documentation: no limitations . Information obtained by: patient . HPI Narrative: 28-year-old female presents with chief complaint of headache. Patient notes prior history of migraine headaches but has not experienced one recently. She states for the past 6 days she has had persistent headache. Headache is l ocalized to frontal right greater than left. Headache first noticed when she woke up 6 days ago. Headache has been fairly persistent and has gradually worsened since onset. She notes she took Excedrin initially which did provide some relief but headache has persisted. She has associated nausea and vomiting. No associated fever. She does note some right facial pain as well as pain in her right upper molars which is atypical. She also notes some associated blurred vision. No numbness or weakness. No neck stiffness or pain. No rash. Related Data Home Medications Medication Instructions Recorded Confirmed garlic 1 tab PO DAILY 02/14/17 06/22/23 epinephrine 0.3 mg/0.3 mL 0.3 mg (0.3 mL) IM ONCE PRN 04/11/18 06/22/23 injection, auto-injector (EpiPen anaphylaxis #2 ea 2-Steve) omeprazole magnesium 20 mg 20 mg PO DAILY #90 tabs 06/18/20 06/22/23 tablet,delayed release (Prilosec OTC) citalopram 10 mg tablet 10 mg PO DAILY 05/02/23 06/22/23 Previous Rx's Medication Instructions Recorded epinephrine 0.3 mg/0.3 mL 0.3 mg (0.3 mL) IM ONCE PRN 04/11/18 injection, auto-injector (EpiPen anaphylaxis #2 ea 2-Steve) omeprazole magnesium 20 mg 20 mg PO DAILY #90 tabs 06/18/20 tablet,delayed release (Prilosec OTC) Allergies Allergy/AdvReac Type Severity Reaction Status Date / Time codeine Allergy Severe Hives Verified 06/22/23 10:14 kiwi Allergy Intermediate Swelling/Ed Verified 06/22/23 10:14 john ciprofloxacin [From Cipro] AdvReac Intermediate vomiting Verified 06/22/23 10:14 General Stated Complaint: Headache JOSELIN: 3 Review of Systems All systems reviewed & are unremarkable except as noted in HPI and below Constitutional Constitutional: Denies body ache(s) and Denies fever(s) ENT Ears, Nose, Mouth, and Throat: Reports as per HPI Exam Const General: cooperative and no acute distress HENHI Head: normocephalic and atraumatic Ears: TM's normal bilaterally General nose exam: external nose normal and nares normal Face and sinus: face symmetric, no erythema, no edema, no fluctuance and tende rness on the right maxilla Mouth: oropharynx normal and moist mucous membranes Teeth and gingiva: dentition normal and gingiva normal Throat: posterior oropharynx normal Eyes Conjunctivae: normal conjunctivae Sclera: normal sclerae Pupils: PERRL EOM: EOM intact bilaterally (Pain with rightward gaze) and No nystagmus Direct ophthalmoscopy: normal light reflex and no papilledema Other: Photophobia -limiting exam Neck Neck: full ROM, no meningeal signs, trachea midline and supple Resp Auscultation: clear to auscultation bilaterally, no rales, no rhonchi and no wheezes Cardio Rate: regular rate and not tachycardic Rhythm: regular rhythm Heart Sounds: no gallops, no murmurs and no rubs Skin General skin exam: no rashes or lesions noted Neuro General: patient alert, patient awake, patient oriented x3 and tone normal Cranial Nerves: no nystagmus Psych Appearance: grossly normal Mental Status: mental status grossly normal Speech and Movement: speech and movement normal Course Vital Signs Vital signs: Vital Signs Temperature 36.6 C 06/22/23 06:45 Pulse 77 06/22/23 06:45 Respiratory Rate 18 06/22/23 06:45 Blood Pressure 151/98 H 06/22/23 06:45 Pulse Oximetry 97 06/22/23 06:45 Temperature 36.6 C 06/22/23 06:45 Temperature Source Tympanic 06/22/23 06:45 Pulse 77 06/22/23 06:45 Respiratory Rate 18 06/22/23 06:45 Respiratory Effort Normal, Non-Labored 06/22/23 06:48 Blood Pressure 151/98 H 06/22/23 06:45 Blood Pressure Position Sitting 06/22/23 06:45 Pulse Oximetry 97 06/22/23 06:45 Oxygen Delivery Method Room Air 06/22/23 06:45 Oxygen Flow Rate 0 06/22/23 06:45 Pain Level 10 06/22/23 06:45 Medical Decision Making 730??28-year-old female with history of remote migraines, here with severe headache persistent over the past 6 days with associated nausea, vomiting, blurred vision, right facial pain as well as right upper molar pain. Patient is neurologically intact. She does have pain with right lateral gaze as well as significant photophobia. Concern for migraine headache versus maxillary sinusitis versus less likely subarachnoid hemorrhage or intracranial mass. Plan to obtain CTA of the brain as well as CT of facial bones. I will give Compazine IV, Benadryl IV, Toradol IV, and IV fluid bolus. 955 -- CTA of the brain interpreted by radiology:1. No evidence of large vessel occlusion or significant stenosis on the CT angiography of the head. 2. No acute intracranial process. CT of the facial bones interpreted by radiology: Minimal mucosal thickening in the maxillary sinuses and left sphenoid sinus. No fluid levels are seen. Patient reassessed: pain completely resolved. We discussed lumbar puncture to assess for other etiologies of headache and definitively rule out bleeding, patient provided informed refusal. Plan at this time will be to have the patient follow-up with her primary care physician. I will also refer her to neurology. She was encouraged to return at any time to pursue additional diagnostics as discussed. Disposition decision was made weighing the risks and benefits of hospitalization versus outpatient treatment, the risk for further decompensation, and the patient's wishes. The patient was stable and requested discharge. Prior to discharge, my usual and customary return precautions were reviewed with the patient - this included follow-up instructions and reason to return to the emergency department if condition worsens, does not improve as expected, or other new concerns arise. Quality:SDOH Health Related Social Needs: No Data to Display PFSH All Active Problems (Updated 06/22/23 @ 10:11 by Eleazar Lentz MD) Headache (Acute) Acute facial pain (Acute) COVID (Acute) Cough (Acute) Chest pain (Acute) Pneumonia (Acute) Allergies (Acute) Pyelonephritis (Acute) Chest pain (Acute) Pharyngitis (Acute) Epigastric abdominal pain (Acute) Viral syndrome (Acute) Migraine with aura and without status migrainosus (Acute) Severe concussion (Acute 02/22/17) Psoriasis (Acute 09/13/17) Moderately severe depression (Acute 02/22/17) Anxiety and depression (Acute 07/24/17) Medical History Congenital yumecy-qxrcbdm-oqfbz reflux Family History Mother Depression Hyperlipidemia Father Depression Brother Asthma ADHD Maternal Grandfather Heart disease Maternal Grandmother Heart disease Brother Autism Paternal Grandfather No problems noted. Paternal Grandmother Glaucoma Social History Smoking/Tobacco Use Status: Never Smoking risk assessment performed?: Yes Alcohol Intake: current Alcohol Intake frequency: holidays/special occasions only Alcohol type: beer and hard liquor Drug use: Never Substance use type: does not use Caregiver/Support person: No Household members: spouse and significant other Housing: house Communication Needs: None current occupation: [employer] Pets and animals: Yes Pets and animals: cat(s) and dog(s) Sexually active: Yes Do you think of yourself as: straight/heterosexual Current gender identity: female What is your relationship status?: living with partner How often do you talk on the phone with friends or family?: three or more times per week How often do you get together with friends or relatives?: three or more times per week How often do you attend uatsdin or denominational services?: decline to answer Do you belong to any clubs or organized social groups?: yes Panel score (0-1 are the most socially isolated patients): 3 What type of physical activity do you participate in: walking Duration: 15-30 minutes/day Frequency: 1-2 times per week Kendal/Amish: Islam Special kendal needs: No Seatbelt use: always Helmet use: Yes Helmet use: always Drive intox or ride w/intox entry driver operator: No Do you feel safe at home: Yes Do you feel safe in your relationship?: Yes
[2023-06-22 07:35] LABS: Source Nasal/Nares
[2023-06-22 07:39] LABS: Abs Immature Grans 0.01 10^3/uL (0.0-0.06); Absolute Basophil Count 0.05 10^3/uL (0.0-0.2); Absolute Eosinophil Count 0.14 10^3/uL (0.0-0.7); Absolute Monocyte Count 0.55 10^3/uL (0.1-0.8); Basophils % 0.8; Eosinophils % 2.1; HCT 43.3 % (36.0-46.0); HGB 15.3 g/dL (11.2-15.7); Immature Grans % 0.2; Lymphocytes % 34.6; MCH 30.9 pg (27.0-33.0); MCHC 35.3 % (32.0-36.0); MCV 88 fL (80-95); MPV 9.9 fL (8.0-11.0); Monocytes % 8.3; Platelet Count 272 10^3/uL (130-400); RBC 4.95 10^6/uL (3.93-5.22); RDW-SD 38.7 fL; WBC 6.65 10^3/uL (4.4-10.8)
[2023-06-22] MEDS: diphenhydrAMINE 50 MG/ML VIAL 25 MG IVP (07:45)
[2023-06-22] MEDS: Prochlorperazine 10 MG/2 ML VIAL IVP (07:45)
[2023-06-22] MEDS: Ketorolac 30 MG/ML VIAL IVP (07:45)
[2023-06-22] MEDS: Normal Saline 1,000 ML 1000 ML IV (07:46)
[2023-06-22 07:55] LABS: ALT 33 U/L (14-59); AST 27 U/L (15-37); Alkaline Phosphatase 80 U/L (46-116); Anion Gap 8.3 mmol/L (3-11); BUN 19 mg/dL (7-18); Bilirubin, Total 0.3 mg/dL (0.2-1.0); CO2 26.7 mmol/L (21.0-32.0); CREATININE 0.9 mg/dL (0.55-1.02); Calcium 9.3 mg/dL (8.5-10.1); Chloride 104 mmol/L (98-107); Glucose 96 mg/dL (74-106); Potassium 4.5 mmol/L (3.5-5.1); Sodium 139 mmol/L (136-145)
[2023-06-22] MEDS: Omnipaque 350 MG/ML 100 ML BTL IJ (08:08)
[2023-06-22] MEDS: Normal Saline - Diluent 50 ML VIAL IJ (08:09)
--- NOTE | 2023-06-22 08:12 | DI.CT_ITS ---
Exam(s) CT BRAIN CTA EXAM: CT BRAIN CTA CLINICAL HISTORY: RESENDIZ. TECHNIQUE: Imaging Protocol: Axial CT angiography was performed with multi-slice acquisition and mu lti-planar and/or 3D reconstructions. CONTRAST MATERIAL: Intravenous: Omnipaque 350 contrast volume:85 mL COMPARISON: CT HEAD AND CSPINE W/O CONTRAST from 02/14/[address] FACIAL WO from 06/22/2023 FINDINGS: CT Head W/O: Ventricles and Extra axial spaces: Normal in size and morphology for the patient's age. Hemorrhage: None. Cerebral parenchyma: Normal. Midline shift: None. Brainstem/Cerebellum: Normal. Calvarium: Normal. Visualized Paranasal sinuses/Mastoids: Clear. Soft Tissues: Unremarkable. Enhancement: Unremarkable. CTA Brain W: Internal Carotid Arteries: No aneurysm, occlusion or significant stenosis. Anterior Cerebral Arteries: Right: No aneurysm, occlusion or significant stenosis. Left: No aneurysm, occlusion or significant stenosis. Middle Cerebral Arteries: Right: No aneurysm, occlusion or significant stenosis. Left: No aneurysm, occlusion or significant stenosis. Posterior cerebral Arteries: Right: No aneurysm, occlusion or significant stenosis. Left: No aneurysm, occlusion or significant stenosis. Vertebral Arteries: Right: No aneurysm, occlusion or significant stenosis. Left: No aneurysm, occlusion or significant stenosis. Basilar Artery: No aneurysm, occlusion or significant stenosis. IMPRESSION: 1. No evidence of large vessel occlusion or significant stenosis on the CT angiography of the head. 2. No acute intracranial process. RADIATION DOSE DELIVERED: 1,814.26mGy.cm Total DLP DATA REPOSITORY: All CT scans at this facility are submitted to the National Radiology Data Registry (NRDR) Dose Index Registry (DIR) with the [employer] (ACR). RADIATION OPTIMIZATION: All CT scans at this facility use at least one of these dose optimization te chniques: automated exposure control; mA and/or kV adjustment per patient size (includes targeted exa ms where dose is matched to clinical indication); or iterative reconstruction.
[2023-06-22 08:13] LABS: COVID-19 PCR Negative (Negative)
[2023-06-22 10:47] VITALS: BP 133/92; PULSE 89; RESP 15; TEMP 36.5; O2SAT 99
== END 2023-06-22 10:47 | disposition home or self-care (01) ==
PROVIDERS: Emergency Provider Student in an Organized Health Care Education/Training Program; PCP Nurse Practitioner Family
DX: G40.909 Epilepsy, unspecified, not intractable, without status epilepticus (principal); Z11.52 Encounter for screening for COVID-19
CPT/HCPCS: 36415; 70496; 80053; 87635; 96361; 96374; 96375; 99285; 70486; 85025; 99284; J0780; J1200; J1885; J3490

== ENCOUNTER 2023-12-05 14:37 | Emergency (ER) | payer OTHER, SELFPAY ==
[2023-12-05 14:42] VITALS: BP 139/92; PULSE 72; RESP 16; TEMP 36.6; O2SAT 100
--- NOTE | 2023-12-05 14:45 | DI.RAD_ITS ---
Exam(s) XR TOE RT FIFTH EXAM: XR TOE RT FIFTH CLINICAL HISTORY: pain s/p dog jumping on it. TECHNIQUE: 2D digital imaging was performed. COMPARISON: No exams were available for comparison FINDINGS: BONES: No acute fracture is present. No bony destructive lesion is seen. JOINTS: No dislocation present. SOFT TISSUE: Normal. IMPRESSION: No evidence of acute fracture, dislocation, or subluxation. DATA REPOSITORY: RADIATION DOSE DELIVERED:
--- NOTE | 2023-12-05 14:53 | W.ED.GENAD ---
Discharge Plan Disposition Patient Disposition: Home Condition: Stable Discharge Details Clinical Impression: Contusion of fifth toe, right Primary Care Provider: Chayo Howard ED Provider: Konstantin Deshpande Home Meds and New Rx's Prescriptions: Continued epinephrine [EpiPen 2-Steve] 0.3 mg/0.3 mL auto-injector 0.3 mg IM ONCE PRN (Reason: anaphylaxis) Qty: 2 0RF Rx Instructions: inject into anterolateral area of thigh (preferred) omeprazole magnesium [Prilosec OTC] 20 mg tablet,delayed release (DR/EC) 20 mg PO DAILY Qty: 90 3RF garlic 1 EACH tablet 1 tab PO DAILY sertraline [Zoloft] 50 mg tablet 50 mg PO DAILY sertraline 50 mg tablet 50 mg PO DAILY Discharge Instructions Additional Instructions: Your x-ray did not show any concerning findings at this time You can take 1000 mg of acetaminophen and 600 mg of ibuprofen every 6 hours as needed Use the postop shoe as needed until pain-free If not better or improving in a week follow-up with your primary care provider If you feel more ill or have severe worsening pain return to the emergency department for reevaluation. HPI General Mode of arrival: ambulatory. Date/Time Provider Initiated Documentation: 12/05/23 14:40. Limitations to Documentation: no limitations. Information obtained by: patient. History of Present Illness 28 year old F presents to the emergency department with the chief complaint of right little toe injury, described as mild, Quality is described as aching, Patient started experiencing this day(s) (1) and it has been constant. Movement improves symptom(s), Rest worsens symptoms . Patient notes no other symptoms.. Related Data Home Medications ?Medication ?Instructions ?Recorded ?Confirmed garlic 1 tab PO DAILY 02/14/17 12/05/23 epinephrine 0.3 mg/0.3 mL 0.3 mg (0.3 mL) IM ONCE PRN 04/11/18 12/05/23 injection, auto-injector (EpiPen anaphylaxis #2 ea 2-Steve) omeprazole magnesium 20 mg 20 mg PO DAILY #90 tabs 06/18/20 12/05/23 tablet,delayed release (Prilosec OTC) sertraline 50 mg tablet 50 mg PO DAILY 12/05/23 12/05/23 sertraline 50 mg tablet (Zoloft) 50 mg PO DAILY 12/05/23 12/05/23 Previous Rx's ?Medication ?Instructions ?Recorded epinephrine 0.3 mg/0.3 mL 0.3 mg (0.3 mL) IM ONCE PRN 04/11/18 injection, auto-injector (EpiPen anaphylaxis #2 ea 2-Steve) omeprazole magnesium 20 mg 20 mg PO DAILY #90 tabs 06/18/20 tablet,delayed release (Prilosec OTC) Allergies Allergy/AdvReac Type Severity Reaction Status Date / Time codeine Allergy Severe Hives Verified 12/05/23 14:45 kiwi Allergy Intermediate Swelling/Ed Verified 12/05/23 14:45 john ciprofloxacin (From Cipro) AdvReac Intermediate vomiting Verified 12/05/23 14:45 General Stated Complaint: Orthopedic JOSELIN: 4 Review of Systems All systems reviewed & are unremarkable except as noted in HPI and below Constitutional Constitutional: Denies weakness Cardiovascular Cardiovascular: Denies dyspnea Respiratory Respiratory: Denies dyspnea Gastrointestinal Gastrointestinal: Denies vomiting Musculoskeletal Musculoskeletal: Denies joint swelling Neurologic Neurologic: Denies weakness Exam Const General: no acute distress Orientation: alert [facility] Head: normal to inspection Ears: external ears normal General nose exam: external nose normal Mouth: moist mucous membranes Eyes General: appearance normal, both eyes and all related structures Neck Neck: normal visual inspection Resp Effort & Inspection: normal respiratory effort and able to speak in complete sentences Cardio Rate: regular rate Skin General skin exam: no rashes or lesions noted Neuro General: patient alert and patient oriented x3 Extrem General: full ROM and capillary refill normal Psych Mental Status: mental status grossly normal Course Vital Signs Vital signs: Vital Signs Temperature 36.6 C 12/05/23 14:42 Pulse 72 12/05/23 14:42 Respiratory Rate 16 12/05/23 14:42 Blood Pressure 139/92 H 12/05/23 14:42 Pulse Oximetry 100 12/05/23 14:42 Temperature 36.6 C 12/05/23 14:42 Temperature Source Temporal Artery Scan 12/05/23 14:42 Pulse 72 12/05/23 14:42 Respiratory Rate 16 12/05/23 14:42 Respiratory Effort Normal, Non-Labored 12/05/23 14:46 Blood Pressure 139/92 H 12/05/23 14:42 Pulse Oximetry 100 12/05/23 14:42 Medical Decision Making 28-year-old female comes in with a right little toe injury. She says that last night her dog was running and stepped on her right little toe. She did not fall or sustain other injuries. She has pain in the right little toe so came here for evaluation. The right little toe is mildly swollen with bruising, she has intact sensation and movement and cap refill. She has no tenderness elsewhere in the foot or ankle. Suspect toe contusion but will obtain x-rays to evaluate for fracture. X-ray negative, patient stable suspect contusion. Will provide a postop shoe to use as needed until pain-free. She will follow-up with her PCP if not improving and return precautions given Differential Diagnosis Differential Diagnosis: fracture, contusion Imaging Data Radiologic Study: Attestation: I personally reviewed and interpreted this imaging study as follows: Imaging: X-Ray Radiologist's impression: no acute findings Quality:SDOH Health Related Social Needs: No Data to Display PFSH All Active Problems (Updated 12/05/23 @ 15:42 by Konstantin Deshpande MD) Contusion of fifth toe, right (Acute) COVID (Acute) Cough (Acute) Chest pain (Acute) Pneumonia (Acute) Allergies (Acute) Pyelonephritis (Acute) Chest pain (Acute) Pharyngitis (Acute) Epigastric abdominal pain (Acute) Viral syndrome (Acute) Migraine with aura and without status migrainosus (Acute) Severe concussion (Acute 02/22/17) Psoriasis (Acute 09/13/17) Moderately severe depression (Acute 02/22/17) Anxiety and depression (Acute 07/24/17) Medical History Congenital wxjztb-dqmhinf-vnubt reflux Family History Mother Depression Hyperlipidemia Father Depression Brother Asthma ADHD Maternal Grandfather Heart disease Maternal Grandmother Heart disease Brother Autism Paternal Grandfather No problems noted. Paternal Grandmother Glaucoma Social History Smoking/Tobacco Use Status: Never Smoking risk assessment performed?: Yes Alcohol Intake: current Alcohol Intake frequency: holidays/special occasions only Alcohol type: beer and hard liquor Drug use: Never Substance use type: does not use Caregiver/Support person: No Household members: spouse and significant other Housing: house Communication Needs: None current occupation: [employer] Pets and animals: Yes Pets and animals: cat(s) and dog(s) Sexually active: Yes Do you think of yourself as: straight/heterosexual Current gender identity: female What is your relationship status?: living with partner How often do you talk on the phone with friends or family?: three or more times per week How often do you get together with friends or relatives?: three or more times per week How often do you attend faith or orthodox services?: decline to answer Do you belong to any clubs or organized social groups?: yes Panel score (0-1 are the most socially isolated patients): 3 What type of physical activity do you participate in: walking Duration: 15-30 minutes/day Frequency: 1-2 times per week Kendal/Worship: Nondenominational Special kendal needs: No Seatbelt use: always Helmet use: Yes Helmet use: always Drive intox or ride w/intox belly dump driver: No Do you feel safe at home: Yes Do you feel safe in your relationship?: Yes PAWSS Have you Been Recently Intoxicated or Drunk Within the Last 30 days?: No Have you Ever Experienced Previous Episodes of Alcohol Withdrawal?: No Have you ever Experienced Withdrawal Seizures?: No Have you ever Experienced Delirium Tremens(DT)s?: No Have you ever undergone Alcohol Rehabilitation Treatment (i.e, inpt ot outpatient treatment programs)?: No Have you ever Experienced Blackouts?: No Have you ever Combined Alcohol with other Downers within the last 90 days?: No Have you ever Combined Alcohol with any other Substance of Abuse during the last 90 days?: No Positive Blood Alcohol level on Presentation? [PCS.BAL]: No Result: 0
== END 2023-12-05 15:51 | disposition home or self-care (01) ==
PROVIDERS: Emergency Provider Emergency Medicine; PCP Nurse Practitioner Family
DX: S90.121A Contusion of right lesser toe(s) without damage to nail, initial encounter (principal); W54.1XXA Struck by dog, initial encounter
CPT/HCPCS: 99283; 73660

== ENCOUNTER 2024-02-22 14:35 | Emergency (ER) | payer OTHER, SELFPAY ==
--- NOTE | 2024-02-22 14:30 | RT.EKG_ITS ---
APPROVED REPORT Exam: Resting ECG Reason for Exam: chest pain Patient Location: E HR:84 bpm ECG Measurements Heart Rate 84 AXIS MN 136 P 25 QRSd 78 QRS 44 QT 338 T 21 QTc 401 Conclusion Sinus rhythm...normal P axis, V-rate 60- 99 Sinus rhythm normal axis normal intervals nonischemic
[2024-02-22 14:39] VITALS: BP 143/93; PULSE 90; RESP 20; TEMP 36.4; O2SAT 98
--- NOTE | 2024-02-22 15:00 | DI.RAD_ITS ---
Exam(s) XR CHEST 2V PA LATERAL EXAM: XR CHEST 2V PA LATERAL CLINICAL HISTORY: productive cough TECHNIQUE: 2D digital imaging was performed of the chest. Two images were obtained. PA and lateral views were obtained. COMPARISON: CR XR PORTABLE CHEST AP from 04/13/2021 FINDINGS: MEDIASTINUM: Normal. HEART: Normal. PULMONARY VASCULATURE: Normal. LUNGS: Clear. PLEURAL SPACE: No pleural effusion or pneumothorax. BONE:Within normal limits for the patient's age. OTHER FINDINGS:Normal. IMPRESSION: No acute pulmonary findings. DATA REPOSITORY: RADIATION DOSE DELIVERED:
--- NOTE | 2024-02-22 15:10 | W.ED.GENAD ---
Discharge Plan Disposition Patient Disposition: Home Condition: Improving Discharge Details Clinical Impression: Cough Primary Care Provider: Chayo Howard ED Provider: Tripp Jenkins Home Meds and New Rx's Prescriptions: New azithromycin 250 mg tablet See Rx Instructions .ROUTE .COMPLEX Qty: 6 0RF Rx Instructions: For 250 mg dose pack: take 500 mg today (day 1), then 250 mg for 4 days (days 2-5) amoxicillin-pot clavulanate 875-125 mg tablet 1 tab PO BID 5 Days Qty: 10 0RF No Action epinephrine [EpiPen 2-Steve] 0.3 mg/0.3 mL auto-injector 0.3 mg IM ONCE PRN (Reason: anaphylaxis) Qty: 2 0RF Rx Instructions: inject into anterolateral area of thigh (preferred) omeprazole magnesium [Prilosec OTC] 20 mg tablet,delayed release (DR/EC) 20 mg PO DAILY Qty: 90 3RF garlic 1 EACH tablet 1 tab PO DAILY sertraline [Zoloft] 50 mg tablet 50 mg PO DAILY sertraline 50 mg tablet 50 mg PO DAILY Discharge Instructions Instructions: Cough, Adult ED Additional Instructions: If you are improving after medication from today please discard prescription however if you have persistent or worsening symptoms consider filling prescription. Return to the emergency department for any worsening symptoms HPI General Date/Time Provider Initiated Documentation: 02/22/24 14:46. HPI Narrative: 28-year-old female presents with 3 weeks of chest congestion cough now productive mild shortness of breath and sharp chest discomfort intermittent brief in nature. Related Data Home Medications ?Medication ?Instructions ?Recorded ?Confirmed garlic 1 tab PO DAILY 02/14/17 02/22/24 epinephrine 0.3 mg/0.3 mL 0.3 mg (0.3 mL) IM ONCE PRN 04/11/18 02/22/24 injection, auto-injector (EpiPen anaphylaxis #2 ea 2-Steve) omeprazole magnesium 20 mg 20 mg PO DAILY #90 tabs 06/18/20 02/22/24 tablet,delayed release (Prilosec OTC) sertraline 50 mg tablet 50 mg PO DAILY 12/05/23 02/22/24 sertraline 50 mg tablet (Zoloft) 50 mg PO DAILY 12/05/23 12/05/23 amoxicillin 875 mg-potassium 1 tab PO BID 5 days #10 tabs 02/22/24 clavulanate 125 mg tablet azithromycin 250 mg tablet See Rx Instructions PO .COMPLEX #6 02/22/24 tabs Previous Rx's ?Medication ?Instructions ?Recorded epinephrine 0.3 mg/0.3 mL 0.3 mg (0.3 mL) IM ONCE PRN 04/11/18 injection, auto-injector (EpiPen anaphylaxis #2 ea 2-Steve) omeprazole magnesium 20 mg 20 mg PO DAILY #90 tabs 06/18/20 tablet,delayed release (Prilosec OTC) amoxicillin 875 mg-potassium 1 tab PO BID 5 days #10 tabs 02/22/24 clavulanate 125 mg tablet azithromycin 250 mg tablet See Rx Instructions PO .COMPLEX #6 02/22/24 tabs Allergies Allergy/AdvReac Type Severity Reaction Status Date / Time codeine Allergy Severe Hives Verified 02/22/24 14:43 kiwi Allergy Intermediate Swelling/Ed Verified 02/22/24 14:43 john ciprofloxacin (From Cipro) AdvReac Intermediate vomiting Verified 02/22/24 14:43 General Stated Complaint: RespSymp JOSELIN: 3 Exam Narrative Exam Narrative: Alert interactive Moist mucous membranes tolerating secretions Normal voice no stridor Lungs clear bilaterally no wheezes rales or rhonchi no retractions no tachypnea Normal heart sounds no murmurs rubs or gallop No peripheral edema No skin rash noted Alert interactive no focal deficit Course Vital Signs Vital signs: Vital Signs Temperature 36.4 C 02/22/24 14:39 Pulse 90 02/22/24 14:39 Respiratory Rate 20 02/22/24 14:39 Blood Pressure 143/93 H 02/22/24 14:39 Pulse Oximetry 98 02/22/24 14:39 Temperature 36.4 C 02/22/24 14:39 Temperature Source Temporal Artery Scan 02/22/24 14:39 Pulse 90 02/22/24 14:39 Respiratory Rate 20 02/22/24 14:39 Respiratory Effort Normal 02/22/24 14:53 Respiratory Depth Normal 02/22/24 14:53 Blood Pressure 143/93 H 02/22/24 14:39 Blood Pressure Position Sitting 02/22/24 14:39 Pulse Oximetry 98 02/22/24 14:39 Oxygen Delivery Method Room Air 02/22/24 14:39 Oxygen Flow Rate 0 02/22/24 14:39 Pain Level 8 02/22/24 14:39 Medical Decision Making 28-year-old female presents with persistent cough over the last 3 weeks now productive, associated with chest congestion shortness of breath and chest discomfort intermittent in nature, now resolved, nonhypoxic nontachycardic nontachypneic no peripheral edema no history of thromboembolic disease or coronary disease, likely viral respiratory illness versus bacterial pneumonia lower suspicion for pneumothorax or pleural effusion lower suspicion for ACS PE aortic pathology given history and physical. Trial of albuterol, dexamethasone, screening chest x-ray given duration of symptomatology, may treat empirically for bacterial pneumonia given length of cough which is now productive. 15, 58 patient resting comfortably no acute distress. X-ray read is unremarkable. Will provide [id number] prescription if patient is not getting better over the next couple of days she will be instructed to fill prescription to treat presumptive pneumonia. Home care instructions and return precautions given Quality:SDOH Health Related Social Needs: No Data to Display PFSH All Active Problems (Updated 02/22/24 @ 16:20 by Tripp Jenkins MD) Cough (Acute) COVID (Acute) Cough (Acute) Chest pain (Acute) Pneumonia (Acute) Allergies (Acute) Pyelonephritis (Acute) Chest pain (Acute) Pharyngitis (Acute) Epigastric abdominal pain (Acute) Viral syndrome (Acute) Migraine with aura and without status migrainosus (Acute) Severe concussion (Acute 02/22/17) Psoriasis (Acute 09/13/17) Moderately severe depression (Acute 02/22/17) Anxiety and depression (Acute 07/24/17) Medical History Congenital asablv-zjdhhnm-xtkjl reflux Family History Mother Depression Hyperlipidemia Father Depression Brother Asthma ADHD Maternal Grandfather Heart disease Maternal Grandmother Heart disease Brother Autism Paternal Grandfather No problems noted. Paternal Grandmother Glaucoma Social History Smoking/Tobacco Use Status: Never Smoking risk assessment performed?: Yes Alcohol Intake: current Alcohol Intake frequency: holidays/special occasions only Alcohol type: beer and hard liquor Drug use: Never Substance use type: does not use Caregiver/Support person: No Household members: spouse and significant other Housing: house Communication Needs: None current occupation: [employer] Pets and animals: Yes Pets and animals: cat(s) and dog(s) Sexually active: Yes Do you think of yourself as: straight/heterosexual Current gender identity: female What is your relationship status?: living with partner How often do you talk on the phone with friends or family?: three or more times per week How often do you get together with friends or relatives?: three or more times per week How often do you attend confucianism or faith services?: decline to answer Do you belong to any clubs or organized social groups?: yes Panel score (0-1 are the most socially isolated patients): 3 What type of physical activity do you participate in: walking Duration: 15-30 minutes/day Frequency: 1-2 times per week Kendal/Alevism: Pentecostal Special kendal needs: No Seatbelt use: always Helmet use: Yes Helmet use: always Drive intox or ride w/intox water tanker driver: No Do you feel safe at home: Yes Do you feel safe in your relationship?: Yes
[2024-02-22] MEDS: Albuterol HFA 8 GM 60 PUFF INH IH (15:12)
[2024-02-22] MEDS: Dexamethasone 10 MG/ML VIAL PO (15:12)
[2024-02-22 15:31] LABS: COVID-19 PCR Negative (Negative); Influenza A PCR Negative (Negative); Influenza B PCR Negative (Negative); RSV PCR Negative (Negative)
[2024-02-22 15:47] LABS: Source NASOPHARYNX
== END 2024-02-22 16:26 | disposition home or self-care (01) ==
PROVIDERS: Emergency Provider Emergency Medicine; PCP Nurse Practitioner Family
DX: R05.9 Cough, unspecified (principal); R06.02 Shortness of breath
CPT/HCPCS: 87637; 93005; 99285; 71046; 93010; 99284; J1100

== ENCOUNTER 2024-02-22 20:36 | Emergency (ER) | payer OTHER, SELFPAY ==
[2024-02-22 20:38] VITALS: BP 151/95; PULSE 106; RESP 16; TEMP 36.3; O2SAT 96
[2024-02-22 20:57] VITALS: BP 170/99; PULSE 105; RESP 20; TEMP 36.3; O2SAT 97
--- NOTE | 2024-02-22 21:09 | ED.GENADUL_ITS ---
Discharge Plan Disposition Patient Disposition: Home Condition: Stable Discharge Details Clinical Impression: UTI (urinary tract infection) Primary Care Provider: Chayo Howard ED Provider: Isabelle Brown Home Meds and New Rx's Prescriptions: New cephalexin 500 mg capsule 500 mg PO BID 10 Days Qty: 20 0RF Rx Instructions: Take one capsule by mouth twice daily x 10 days No Action epinephrine [EpiPen 2-Steve] 0.3 mg/0.3 mL auto-injector 0.3 mg IM ONCE PRN (Reason: anaphylaxis) Qty: 2 0RF Rx Instructions: inject into anterolateral area of thigh (preferred) omeprazole magnesium [Prilosec OTC] 20 mg tablet,delayed release (DR/EC) 20 mg PO DAILY Qty: 90 3RF garlic 1 EACH tablet 1 tab PO DAILY sertraline [Zoloft] 50 mg tablet 50 mg PO DAILY sertraline 50 mg tablet 50 mg PO DAILY azithromycin 250 mg tablet See Rx Instructions .ROUTE .COMPLEX Qty: 6 0RF Rx Instructions: For 250 mg dose pack: take 500 mg today (day 1), then 250 mg for 4 days (days 2-5) amoxicillin-pot clavulanate 875-125 mg tablet 1 tab PO BID 5 Days Qty: 10 0RF Discharge Instructions Instructions: Urinary Tract Infection, Adult ED Additional Instructions: You do have evidence of urinary tract infection. Please take the antibiotic with yogurt or probiotic twice daily for the next 10 days. You may continue to take the Pyridium or Azo [id number] if that seems to help your symptoms. However otherwise increase oral fluids. Please take Tylenol or Ibuprofen with food every 4-6 hours as needed for pain and swelling. Follow up with primary care provider in 3-5 days. Return to ED sooner if any worsening or concerns. Stand Alone Forms: Work Release Referrals: Chayo Howard [Primary Care Provider] - 3 days HPI General Mode of arrival: ambulatory . Date/Time Provider Initiated Documentation: 02/22/24 20:43 . Limitations to Documentation: no limitations . Information obtained by: patient, RN notes reviewed and old records reviewed . HPI Narrative: 28-year-old female presents to the ER for the second time in the last 12 hours with a chief complaint of possible urinary tract infection. Patient was seen here earlier for URI type symptoms. She does have a history of renal reflux and she had a surgery correcting that in the past. She does get frequent UTIs usually takes amoxicillin which improves her symptoms however she has been on amoxicillin for the last 3 days and reports no improvement. She also has been taking [id number] Azo with little to no relief. She denies any nausea vomiting. She is tachycardic upon arrival she attributes this to the prior steroid that she received earlier today. She reports some lower suprapubic tenderness and low back pain. Related Data Home Medications ?Medication ?Instructions ?Recorded ?Confirmed garlic 1 tab PO DAILY 02/14/17 02/22/24 epinephrine 0.3 mg/0.3 mL 0.3 mg (0.3 mL) IM ONCE PRN 04/11/18 02/22/24 injection, auto-injector (EpiPen anaphylaxis #2 ea 2-Steve) omeprazole magnesium 20 mg 20 mg PO DAILY #90 tabs 06/18/20 02/22/24 tablet,delayed release (Prilosec OTC) sertraline 50 mg tablet 50 mg PO DAILY 12/05/23 02/22/24 sertraline 50 mg tablet (Zoloft) 50 mg PO DAILY 12/05/23 02/22/24 amoxicillin 875 mg-potassium 1 tab PO BID 5 days #10 tabs 02/22/24 clavulanate 125 mg tablet azithromycin 250 mg tablet See Rx Instructions PO .COMPLEX #6 02/22/24 02/22/24 tabs cephalexin 500 mg capsule 500 mg PO BID uti 10 days #20 caps 02/22/24 Previous Rx's ?Medication ?Instructions ?Recorded epinephrine 0.3 mg/0.3 mL 0.3 mg (0.3 mL) IM ONCE PRN 04/11/18 injection, auto-injector (EpiPen anaphylaxis #2 ea 2-Steve) omeprazole magnesium 20 mg 20 mg PO DAILY #90 tabs 06/18/20 tablet,delayed release (Prilosec OTC) amoxicillin 875 mg-potassium 1 tab PO BID 5 days #10 tabs 02/22/24 clavulanate 125 mg tablet azithromycin 250 mg tablet See Rx Instructions PO .COMPLEX #6 02/22/24 tabs cephalexin 500 mg capsule 500 mg PO BID uti 10 days #20 caps 02/22/24 Allergies Allergy/AdvReac Type Severity Reaction Status Date / Time codeine Allergy Severe Hives Verified 02/22/24 20:48 kiwi Allergy Intermediate Swelling/Ed Verified 02/22/24 20:48 john ciprofloxacin (From Cipro) AdvReac Intermediate vomiting Verified 02/22/24 20:48 General Stated Complaint: FlankPain JOSELIN: 3 Review of Systems All systems reviewed & are unremarkable except as noted in HPI and below Genitourinary Genitourinary: Reports dysuria, Reports urinary hesitancy and Reports urinary urgency Exam Narrative Exam Narrative: Constitutional: Alert and oriented x3. Appears stated age. Normal body habitus. Head: Normocephalic, no trauma. Eyes: Pupils PERRL, Red reflex noted, EOM's intact. Eyelids symmetrical without lesions, discharge, or swelling. ENT: Bilateral TM's WNL, External ear normal to inspection, no mastoid TTP, swelling, or erythema, Nasal turbinates WNL, no nasal discharge. Normal dentition, Posterior pharynx WNL, no exudate. Chest: RRR, Normal S1, S2, distal pulses intact. Resp: Lungs clear to auscultation bilaterally, no wheezes, rales, or rhonchi. Abdomen: Soft, non-distended, Normoactive bowel sounds all 4 quads. Musculoskeletal: Normal gait, Moves all 4 extremities without difficulty. Skin: No suspicious rashes or lesions. Capillary refill less than 2 sec. Neurologic: Cranial nerves II-XII intact. Alert and oriented x 3. Motor: No defi cits noted. Sensory: Intact bilaterally all 4 extremities. Hematologic/Lymphatic: No ecchymosis, no lymphadenopathy. Course Vital Signs Vital signs: Vital Signs Temperature 36.3 C L 02/22/24 20:38 Pulse 106 H 02/22/24 20:38 Respiratory Rate 16 02/22/24 20:38 Blood Pressure 151/95 H 02/22/24 20:38 Pulse Oximetry 96 02/22/24 20:38 Temperature 36.3 C L 02/22/24 20:57 Temperature Source Temporal Artery Scan 02/22/24 20:57 Pulse 105 H 02/22/24 20:57 Respiratory Rate 20 02/22/24 20:57 Respiratory Effort Normal, Non-Labored 02/22/24 20:57 Blood Pressure 170/99 H 02/22/24 20:57 Blood Pressure Position Supine 02/22/24 20:57 Pulse Oximetry 97 02/22/24 20:57 Oxygen Delivery Method Room Air 02/22/24 20:57 Oxygen Flow Rate 0 02/22/24 20:38 Pain Level 10 02/22/24 20:57 Medical Decision Making 28-year-old female presents to the ER for the second time in the last 12 hours with a chief complaint of possible urinary tract infection. Patient was seen here earlier for URI type symptoms. She does have a history of renal reflux and she had a surgery correcting that in the past. She does get frequent UTIs usually takes amoxicillin which improves her symptoms however she has been on amoxicillin for the last 3 days and reports no improvement. She also has been taking [id number] Azo with little to no relief. She denies any nausea vomiting. She is tachycardic upon arrival she attributes this to the prior steroid that she received earlier today. She reports some lower suprapubic tenderness and low back pain. Urinalysis pending at this time. Urinalysis shows trace blood, moderate leukocytes 10-20 WBCs culture is pending at this time. Will give cephalexin here in the department and to to go. Patient is complaining of pain will give Toradol, Percocet and Zofran. This text was generated using [employer] dictation system, please disregard any oddities of phrase or misspellings. Medical Records Medical records reviewed: Yes I reviewed the patient's medical records. Lab Data Lab results reviewed: Yes I reviewed the patient's lab results. Labs: 02/22/24 20:48 Urine - Reflex from Ua Urine Culture - Pending Laboratory Tests Range/Units 02/22/24 20:48 Urine Color (Yellow) Yellow Urine Clarity (Clear) Clear Urine pH (5-8) 6.0 Ur Specific [place] (1.005-1.025) <= 1.005 Urine Protein (Neg-Trace) mg/dL Negative Urine Ketones (Negative) mg/dL Negative Urine Blood (Negative) Trace-lysed H Urine Nitrite (Negative) Negative Urine Bilirubin (Negative) Negative Urine Urobilinogen (Up to 0.2) mg/dL 0.2 Ur Leukocyte Esterase (Negative) Moderate H Urine RBC (0-2) HPF 0-2 Urine WBC (0-5) HPF 10-20 H Ur Epithelial Cells (Negative) HPF Rare Urine Crystals (Negative) HPF Negative Urine Bacteria (Negative) HPF Negative Urine Mucus (Negative) Negative Ur Culture Indicated? Yes Urine Glucose (Negative) mg/dL Negative Quality:SDOH Health Related Social Needs: No Data to Display PFSH All Active Problems (Updated 02/22/24 @ 21:54 by Isabelle Brown NP) UTI (urinary tract infection) (Acute) Cough (Acute) COVID (Acute) Cough (Acute) Chest pain (Acute) Pneumonia (Acute) Allergies (Acute) Pyelonephritis (Acute) Chest pain (Acute) Pharyngitis (Acute) Epigastric abdominal pain (Acute) Viral syndrome (Acute) Migraine with aura and without status migrainosus (Acute) Severe concussion (Acute 02/22/17) Psoriasis (Acute 09/13/17) Moderately severe depression (Acute 02/22/17) Anxiety and depression (Acute 07/24/17) Medical History Congenital sxumxg-mvcsbgi-ndynb reflux Family History Mother Depression Hyperlipidemia Father Depression Brother Asthma ADHD Maternal Grandfather Heart disease Maternal Grandmother Heart disease Brother Autism Paternal Grandfather No problems noted. Paternal Grandmother Glaucoma Social History Smoking/Tobacco Use Status: Never Smoking risk assessment performed?: Yes Alcohol Intake: current Alcohol Intake frequency: holidays/special occasions only Alcohol type: beer and hard liquor Drug use: Never Substance use type: does not use Caregiver/Support person: No Household members: spouse and significant other Housing: house Communication Needs: None current occupation: [employer] Pets and animals: Yes Pets and animals: cat(s) and dog(s) Sexually active: Yes Do you think of yourself as: straight/heterosexual Current gender identity: female What is your relationship status?: living with partner How often do you talk on the phone with friends or family?: three or more times per week How often do you get together with friends or relatives?: three or more times per week How often do you attend latter day or religion services?: decline to answer Do you belong to any clubs or organized social groups?: yes Panel score (0-1 are the most socially isolated patients): 3 What type of physical activity do you participate in: walking Duration: 15-30 minutes/day Frequency: 1-2 times per week Kendal/Adventism: Jehovah'S Witness Special kendal needs: No Seatbelt use: always Helmet use: Yes Helmet use: always Drive intox or ride w/intox truck driver: No Do you feel safe at home: Yes Do you feel safe in your relationship?: Yes
[2024-02-22 21:14] LABS: Bilirubin Negative (Negative); Blood Trace-lysed (Negative); Clarity Clear (Clear); Glucose Negative (Negative); Ketones Negative (Negative); Leukocyte Esterase Moderate (Negative); Nitrite Negative (Negative); Specific Gravity <= 1.005 (1.005-1.025); Urobilinogen 0.2 mg/dL (Up to 0.2)
[2024-02-22 21:20] LABS: Bacteria Negative HPF (Negative); C & S Indicated? Yes; Crystals Negative HPF (Negative); Epithelial Cells Rare HPF (Negative); Mucus Negative (Negative); RBC 0-2 HPF (0-2)
[2024-02-22] MEDS: Cephalexin 500 MG CAP, 2 CAPS/BTL PO (21:32)
[2024-02-22] MEDS: Cephalexin 500 MG CAP PO (21:32)
[2024-02-22] MEDS: oxyCODONE 5 mg/Acetaminophen 325 mg TAB 1 TAB PO (21:42)
[2024-02-22] MEDS: Ondansetron O.D.T. 4 MG TABEF PO (21:43)
[2024-02-22] MEDS: Ketorolac 10 MG TAB PO (21:43)
[2024-02-22 22:04] VITALS: BP 169/81; PULSE 93; RESP 20; O2SAT 95
== END 2024-02-22 22:33 | disposition home or self-care (01) ==
PROVIDERS: Emergency Provider Registered Nurse Emergency; PCP Nurse Practitioner Family
DX: N39.0 Urinary tract infection, site not specified (principal)
CPT/HCPCS: 99284; 81003; 81015; 87086; 99283

== ENCOUNTER 2024-07-31 16:39 | Emergency (ER) | payer SELFPAY ==
[2024-07-31 16:40] VITALS: BP 137/89; PULSE 61; RESP 14; TEMP 36.8; O2SAT 99
--- NOTE | 2024-07-31 16:57 | W.ED.GENAD ---
Discharge Plan Disposition Patient Disposition: Home Condition: Stable Discharge Details Clinical Impression: Discharge of eye Primary Care Provider: Chayo Howard ED Provider: Konstantin Deshpande Home Meds and New Rx's Prescriptions: Continued epinephrine [EpiPen 2-Steve] 0.3 mg/0.3 mL auto-injector 0.3 mg IM ONCE PRN (Reason: anaphylaxis) Qty: 2 0RF Rx Instructions: inject into anterolateral area of thigh (preferred) omeprazole magnesium [Prilosec OTC] 20 mg tablet,delayed release (DR/EC) 20 mg PO DAILY Qty: 90 3RF garlic 1 EACH tablet 1 tab PO DAILY sertraline 50 mg tablet 50 mg PO DAILY Discharge Instructions Additional Instructions: He had a reassuring eye exam. You can use the antibiotic ointment 4 times a day for 7 days or until the tube is gone. If not improving with this I recommend calling your eye care provider and getting a appointment. If you feel more ill or have severe worsening pain return to the emergency department for reevaluation. Stand Alone Forms: Work Release HPI General Mode of arrival: ambulatory. Date/Time Provider Initiated Documentation: 07/31/24 16:39. History of Present Illness 29 year old F presents to the emergency department with the chief complaint of eye discharge, described as mild, Patient started experiencing this day(s) (2) and it has been intermittent. No relieving factors improve symptom(s), No exacerbating factors reported . Patient notes no other symptoms.. Patient did receive the following treatments prior to arrival, none Related Data Home Medications ?Medication ?Instructions ?Recorded ?Confirmed garlic 1 tab PO DAILY 02/14/17 07/31/24 epinephrine 0.3 mg/0.3 mL 0.3 mg (0.3 mL) IM ONCE PRN 04/11/18 07/31/24 injection, auto-injector (EpiPen anaphylaxis #2 ea 2-Steve) omeprazole magnesium 20 mg 20 mg PO DAILY #90 tabs 06/18/20 07/31/24 tablet,delayed release (Prilosec OTC) sertraline 50 mg tablet 50 mg PO DAILY 12/05/23 07/31/24 Previous Rx's ?Medication ?Instructions ?Recorded epinephrine 0.3 mg/0.3 mL 0.3 mg (0.3 mL) IM ONCE PRN 04/11/18 injection, auto-injector (EpiPen anaphylaxis #2 ea 2-Steve) omeprazole magnesium 20 mg 20 mg PO DAILY #90 tabs 06/18/20 tablet,delayed release (Prilosec OTC) Allergies Allergy/AdvReac Type Severity Reaction Status Date / Time codeine Allergy Severe Hives Verified 07/31/24 16:43 kiwi Allergy Intermediate Swelling/Ed Verified 07/31/24 16:43 john ciprofloxacin (From Cipro) AdvReac Intermediate vomiting Verified 07/31/24 16:43 General Stated Complaint: EyeProblem JOSELIN: 4 Review of Systems All systems reviewed & are unremarkable except as noted in HPI and below Constitutional Constitutional: Denies chills, Denies fever(s) and Denies weakness Eyes Eyes: Reports loss of vision Cardiovascular Cardiovascular: Denies chest pain and Denies dyspnea Respiratory Respiratory: Denies cough and Denies dyspnea Gastrointestinal Gastrointestinal: Denies abdominal pain, Denies nausea and Denies vomiting Neurologic Neurologic: Reports loss of vision and Denies weakness Exam Const General: no acute distress Orientation: alert HENMT Head: normal to inspection Ears: external ears normal General nose exam: external nose normal Mouth: moist mucous membranes Eyes General: appearance normal, both eyes and all related structures Alignment and Position: alignment normal Periorbital: periorbital findings normal Eyelids: eyelids normal Conjunctivae: conjunctivae normal Sclera: sclerae normal Pupils: PERRL EOM: EOM intact bilaterally Neck Neck: normal visual inspection Resp Effort & Inspection: normal respiratory effort and able to speak in complete sentences Cardio Rate: regular rate Skin General skin exam: no rashes or lesions noted Neuro General: patient alert and patient oriented x3 Extrem General: normal to inspection Psych Mental Status: mental status grossly normal Course Vital Signs Vital signs: Vital Signs Temperature 36.8 C 07/31/24 16:40 Pulse 61 07/31/24 16:40 Respiratory Rate 14 07/31/24 16:40 Blood Pressure 137/89 07/31/24 16:40 Pulse Oximetry 99 07/31/24 16:40 Temperature 36.8 C 07/31/24 16:40 Temperature Source Oral 07/31/24 16:40 Pulse 61 07/31/24 16:40 Respiratory Rate 14 07/31/24 16:40 Blood Pressure 137/89 07/31/24 16:40 Blood Pressure Position Sitting 07/31/24 16:40 Pulse Oximetry 99 07/31/24 16:40 Oxygen Delivery Method Room Air 07/31/24 16:40 Oxygen Flow Rate 0 07/31/24 16:40 Pain Level 7 07/31/24 16:40 Medical Decision Making 29-year-old female comes in with complaints of left eye being irritated and having discharge intermittently. She denies any loss of vision, fevers, trauma. She is well-appearing, she has actually no discharge or erythema of her conjunctiva currently but she says she did wipe away some discharge. She has full range of motion of her eye without any pain. There is no periorbital swelling or erythema. There is no evidence of a stye. 20/30 vision in the left eye and 20/50 in the right eye. Discussed with her and after discussion she would like to start antibiotics given the discharge so I will put her on erythromycin. 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 on improving and return precautions given Differential Diagnosis Differential Diagnosis: Conjunctivitis, viral conjunctivitis Quality:SDOH Health Related Social Needs: No Data to Display PFSH All Active Problems (Updated 07/31/24 @ 16:58 by Konstantin Deshpande MD) Discharge of eye (Acute) COVID (Acute) Cough (Acute) Chest pain (Acute) Pneumonia (Acute) Allergies (Acute) Pyelonephritis (Acute) Chest pain (Acute) Pharyngitis (Acute) Epigastric abdominal pain (Acute) Viral syndrome (Acute) Migraine with aura and without status migrainosus (Acute) Severe concussion (Acute 02/22/17) Psoriasis (Acute 09/13/17) Moderately severe depression (Acute 02/22/17) Anxiety and depression (Acute 07/24/17) Medical History Congenital nwktvi-wbftery-yvntk reflux Family History Mother Depression Hyperlipidemia Father Depression Brother Asthma ADHD Maternal Grandfather Heart disease Maternal Grandmother Heart disease Brother Autism Paternal Grandfather No problems noted. Paternal Grandmother Glaucoma Social History Smoking/Tobacco Use Status: Never Smoking risk assessment performed?: Yes Alcohol Intake: current Alcohol Intake frequency: holidays/special occasions only Alcohol type: beer and hard liquor Drug use: Never Substance use type: does not use Caregiver/Support person: No Household members: spouse and significant other Housing: house Communication Needs: None current occupation: [employer] Pets and animals: Yes Pets and animals: cat(s) and dog(s) Sexually active: Yes Do you think of yourself as: straight/heterosexual Current gender identity: female What is your relationship status?: living with partner How often do you talk on the phone with friends or family?: three or more times per week How often do you get together with friends or relatives?: three or more times per week How often do you attend orthodox or presybeterian services?: decline to answer Do you belong to any clubs or organized social groups?: yes Panel score (0-1 are the most socially isolated patients): 3 What type of physical activity do you participate in: walking Duration: 15-30 minutes/day Frequency: 1-2 times per week Kendal/Shinto: Yazidi Special kendal needs: No Seatbelt use: always Helmet use: Yes Helmet use: always Drive intox or ride w/intox 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
[2024-07-31] MEDS: Erythromycin Ophth Oint 3.5 GM TUBE OP (17:02)
== END 2024-07-31 17:04 | disposition home or self-care (01) ==
LOC: ER 17:23
PROVIDERS: Emergency Provider Emergency Medicine; PCP Nurse Practitioner Family
DX: H57.89 Other specified disorders of eye and adnexa (principal)
CPT/HCPCS: 99283

== ENCOUNTER 2024-08-07 17:06 | Emergency (ER) | payer SELFPAY ==
[2024-08-07 17:09] VITALS: BP 140/89; PULSE 104; RESP 18; TEMP 36.8; O2SAT 98
--- NOTE | 2024-08-07 17:26 | ED.GENADUL_ITS ---
Discharge Plan Disposition Patient Disposition: Home Condition: Stable Discharge Details Clinical Impression: Shingles rash Primary Care Provider: Chayo Howard ED Provider: Isabelle Brown Home Meds and New Rx's Prescriptions: New valacyclovir 1 gram tablet 1,000 mg PO TID 7 Days Qty: 21 0RF Rx Instructions: Take one tablet 3 times daily x 7 days prednisone 50 mg tablet 50 mg PO DAILY 5 Days Qty: 5 0RF Rx Instructions: Take 1 tablet daily for the next 5 days Continued epinephrine [EpiPen 2-Steve] 0.3 mg/0.3 mL auto-injector 0.3 mg IM ONCE PRN (Reason: anaphylaxis) Qty: 2 0RF Rx Instructions: inject into anterolateral area of thigh (preferred) omeprazole magnesium [Prilosec OTC] 20 mg tablet,delayed release (DR/EC) 20 mg PO DAILY Qty: 90 3RF garlic 1 EACH tablet 1 tab PO DAILY sertraline 50 mg tablet 50 mg PO DAILY Discharge Instructions Instructions: Shingles Additional Instructions: Based on your presentation the rash is consistent with shingles. A prescription for antiviral medication which is a treatment for shingles was sent to the pharmacy on file. A additional prescription for prednisone for the next 5 days is also given. Please take Tylenol or Ibuprofen with food every 4-6 hours as needed for pain and swelling. Please return to the ER or be seen by your PCP for any worsening, no improvement after 7 days of the antiviral or concerns. Follow up with primary care provider in 3-5 days. Return to ED sooner if any worsening or concerns. You may also look for lidocaine patches which they sell [id number] and apply them as directed. Stand Alone Forms: Work Release Referrals: Chayo Howard [Primary Care Provider] - 5 days HPI General Mode of arrival: ambulatory . Date/Time Provider Initiated Documentation: 08/07/24 17:15 . Limitations to Documentation: no limitations . Information obtained by: patient, RN notes reviewed and old records reviewed . HPI Narrative: 29-year-old female presents to the ER with a chief complaint of a lesion which is painful and pruritic to her left flank. She noticed this 4 days ago. She also reports that at 4 AM this morning she had a 102 fever. She did take Tylenol and ibuprofen has not had a fever since. She also endorses URI type symptoms. No other lesions or rash noted. Related Data Home Medications ?Medication ?Instructions ?Recorded ?Confirmed garlic 1 tab PO DAILY 02/14/17 08/07/24 epinephrine 0.3 mg/0.3 mL 0.3 mg (0.3 mL) IM ONCE PRN 04/11/18 08/07/24 injection, auto-injector (EpiPen anaphylaxis #2 ea 2-Steve) omeprazole magnesium 20 mg 20 mg PO DAILY #90 tabs 06/18/20 08/07/24 tablet,delayed release (Prilosec OTC) sertraline 50 mg tablet 50 mg PO DAILY 12/05/23 08/07/24 prednisone 50 mg tablet 50 mg PO DAILY Inflammation 5 days 08/07/24 #5 tabs valacyclovir 1 gram tablet 1,000 mg PO TID Shingles 7 days 08/07/24 #21 tabs Previous Rx's ?Medication ?Instructions ?Recorded epinephrine 0.3 mg/0.3 mL 0.3 mg (0.3 mL) IM ONCE PRN 04/11/18 injection, auto-injector (EpiPen anaphylaxis #2 ea 2-Steve) omeprazole magnesium 20 mg 20 mg PO DAILY #90 tabs 06/18/20 tablet,delayed release (Prilosec OTC) prednisone 50 mg tablet 50 mg PO DAILY Inflammation 5 days 08/07/24 #5 tabs valacyclovir 1 gram tablet 1,000 mg PO TID Shingles 7 days 08/07/24 #21 tabs Allergies Allergy/AdvReac Type Severity Reaction Status Date / Time codeine Allergy Severe Hives Verified 08/07/24 17:15 kiwi Allergy Intermediate Swelling/Ed Verified 08/07/24 17:15 john ciprofloxacin (From Cipro) AdvReac Intermediate vomiting Verified 08/07/24 17:15 General Stated Complaint: RashLesion JOSELIN: 4 Review of Systems Integumentary/Breasts Skin/Breast: Reports as per HPI, Reports pruritus, Reports lesions, Reports rash and Reports skin pain Exam Const General: cooperative and healthy appearing Nutritional Appearance: average body habitus Orientation: alert, awake and oriented x3 Resp Effort & Inspection: normal respiratory effort and able to speak in complete sentences Auscultation: clear to auscultation bilaterally Cardio Palpation: normal PMI Rate: tachycardic Rhythm: regular rhythm Heart Sounds: S1 normal and S2 normal Skin Rashes: rashes noted vesicles left flank size (1.5cm), arrangement linear, borders raised and irregular, distribution (Dermatome) and tender Trauma: no lacerations or abrasions Wounds: no wounds Course Vital Signs Vital signs: Vital Signs Temperature 36.8 C 08/07/24 17:09 Pulse 104 H 08/07/24 17:09 Respiratory Rate 18 08/07/24 17:09 Blood Pressure 140/89 08/07/24 17:09 Pulse Oximetry 98 08/07/24 17:09 Temperature 36.8 C 08/07/24 17:09 Pulse 104 H 08/07/24 17:09 Respiratory Rate 18 08/07/24 17:09 Blood Pressure 140/89 08/07/24 17:09 Pulse Oximetry 98 08/07/24 17:09 Oxygen Delivery Method Room Air 08/07/24 17:09 Oxygen Flow Rate 0 08/07/24 17:09 Pain Level 8 08/07/24 17:09 Medical Decision Making 29-year-old female presents to the ER with a chief complaint of a lesion which is painful and pruritic to her left flank. She noticed this 4 days ago. She also reports that at 4 AM this morning she had a 102 fever. She did take Tylenol and ibuprofen has not had a fever since. She also endorses URI type symptoms. No other lesions or rash noted. Presentation is consistent with shingles however other differential cannot be excluded will give acyclovir lidocaine patch here and prescription for 50 mg prednisone x 5 days. Discussed follow-up care and strict return instructions she verbalized understanding. Patient is to be discharged. This text was generated using [employer] system, please disregard any oddities of phrase or misspellings. Quality:SDOH Health Related Social Needs: No Data to Display PFSH All Active Problems (Updated 08/07/24 @ 17:30 by Isabelle Brown NP) Shingles rash (Acute) Discharge of eye (Acute) COVID (Acute) Cough (Acute) Chest pain (Acute) Pneumonia (Acute) Allergies (Acute) Pyelonephritis (Acute) Chest pain (Acute) Pharyngitis (Acute) Epigastric abdominal pain (Acute) Viral syndrome (Acute) Migraine with aura and without status migrainosus (Acute) Severe concussion (Acute 02/22/17) Psoriasis (Acute 09/13/17) Moderately severe depression (Acute 02/22/17) Anxiety and depression (Acute 07/24/17) Medical History Congenital aawetj-azpeygt-dvppf reflux Family History Mother Depression Hyperlipidemia Father Depression Brother Asthma ADHD Maternal Grandfather Heart disease Maternal Grandmother Heart disease Brother Autism Paternal Grandfather No problems noted. Paternal Grandmother Glaucoma Social History Smoking/Tobacco Use Status: Never Smoking risk assessment performed?: Yes Alcohol Intake: current Alcohol Intake frequency: holidays/special occasions only Alcohol type: beer and hard liquor Drug use: Never Substance use type: does not use Caregiver/Support person: No Household members: spouse and significant other Housing: house Communication Needs: None current occupation: [employer] Pets and animals: Yes Pets and animals: cat(s) and dog(s) Sexually active: Yes Do you think of yourself as: straight/heterosexual Current gender identity: female What is your relationship status?: living with partner How often do you talk on the phone with friends or family?: three or more times per week How often do you get together with friends or relatives?: three or more times per week How often do you attend synagogue or presybeterian services?: decline to answer Do you belong to any clubs or organized social groups?: yes Panel score (0-1 are the most socially isolated patients): 3 What type of physical activity do you participate in: walking Duration: 15-30 minutes/day Frequency: 1-2 times per week Kendal/Latter-Day: Yarsani Special kendal needs: No Seatbelt use: always Helmet use: Yes Helmet use: always Drive intox or ride w/intox cpr ambulance driver: No Do you feel safe at home: Yes Do you feel safe in your relationship?: Yes
[2024-08-07] MEDS: Lidocaine 5% Patch 1 PATCH TP (17:37)
== END 2024-08-07 17:48 | disposition home or self-care (01) ==
LOC: ER 18:28
PROVIDERS: Emergency Provider Registered Nurse Emergency; PCP Nurse Practitioner Family
DX: B02.9 Zoster without complications (principal)
CPT/HCPCS: 99283

== ENCOUNTER 2024-08-12 17:28 | Emergency (ER) | payer SELFPAY ==
[2024-08-12 17:31] VITALS: BP 155/116; PULSE 83; RESP 20; O2SAT 100
--- NOTE | 2024-08-12 17:38 | ED.GENADUL_ITS ---
Discharge Plan Disposition Patient Disposition: Home Condition: Stable Discharge Details Clinical Impression: Zoster Primary Care Provider: Chayo Howard ED Provider: Terrence Washburn Home Meds and New Rx's Prescriptions: Continued epinephrine [EpiPen 2-Steve] 0.3 mg/0.3 mL auto-injector 0.3 mg IM ONCE PRN (Reason: anaphylaxis) Qty: 2 0RF Rx Instructions: inject into anterolateral area of thigh (preferred) omeprazole magnesium [Prilosec OTC] 20 mg tablet,delayed release (DR/EC) 20 mg PO DAILY Qty: 90 3RF garlic 1 EACH tablet 1 tab PO DAILY sertraline 50 mg tablet 50 mg PO DAILY Discharge Instructions Instructions: Valacyclovir, Shingles Additional Instructions: You were seen in the emergency department for your active shingles infection, you are having aches and pains all over, you have stopped new vesicle formation but I am going to place you on a further course of valacyclovir. Please use therapeutic dosing of Tylenol (acetamenophen) & Advil (ibuprofen) in an alternating fashion as follows: Take 1000mg of Tylenol every 6 hours without missing doses- that is 4 times per day. [place] in between the Tylenol dosings, take 400-600mg of Advil also on a 6 hour schedule, that is also 4 times per day. The daily maximum dosing of Tylenol is 4000mg, and the daily maximum dosing of Advil is 2400mg. This is safe to do for weeks. Please note that some common cold medications & prescription pain medications may contain acetamenophen and you need to read OTC drug labels and factor that in to maximum daily dosings. Please watch out for signs of worsening infection or disseminated infection, any eye pain, any high fevers despite adequate Tylenol and ibuprofen use, any spreading rash all over the body and any reduced range of motion in the neck please return to the emergency department immediately. Referrals: Chayo Howard [Primary Care Provider] - Discharge Data Discharge Date/Time-TO BE ENTERED AT DEPARTURE: 08/12/24 19:58 HPI General Date/Time Provider Initiated Documentation: 08/12/24 17:38 . HPI Narrative: 29 year-old female presents to ED today by POV/ambulating with a chief complaint of known shingles outbreak on L abdomen, with onset a few days ago. Quality described as painful area of healing blisters, now having some loss of voice that resolved, body aches, and neck muscle aches, no radiation to disseminated rash, neck stiffness, fever, new blisters, oral blisters. Severity is described as moderate. Palliating factors include on valacyclovir with healing of primary zoster blisters. Provoking factors include nothing specific. Patient not anticoagulated. Related Data Home Medications ?Medication ?Instructions ?Recorded ?Confirmed garlic 1 tab PO DAILY 02/14/17 08/12/24 epinephrine 0.3 mg/0.3 mL 0.3 mg (0.3 mL) IM ONCE PRN 04/11/18 08/12/24 injection, auto-injector (EpiPen anaphylaxis #2 ea 2-Steve) omeprazole magnesium 20 mg 20 mg PO DAILY #90 tabs 06/18/20 08/12/24 tablet,delayed release (Prilosec OTC) sertraline 50 mg tablet 50 mg PO DAILY 12/05/23 08/12/24 Previous Rx's ?Medication ?Instructions ?Recorded epinephrine 0.3 mg/0.3 mL 0.3 mg (0.3 mL) IM ONCE PRN 04/11/18 injection, auto-injector (EpiPen anaphylaxis #2 ea 2-Steve) omeprazole magnesium 20 mg 20 mg PO DAILY #90 tabs 06/18/20 tablet,delayed release (Prilosec OTC) Allergies Allergy/AdvReac Type Severity Reaction Status Date / Time codeine Allergy Severe Hives Verified 08/12/24 17:36 kiwi Allergy Intermediate Swelling/Ed Verified 08/12/24 17:36 john ciprofloxacin (From Cipro) AdvReac Intermediate vomiting Verified 08/12/24 17:36 General Stated Complaint: RashLesion JOSELIN: 4 Review of Systems All systems reviewed & are unremarkable except as noted in HPI and below Exam Narrative Exam Narrative: GENERAL APPEARANCE: Well-nourished, non-toxic, awake and alert, atraumatic, no acute distress. SKIN: Warm, pink, dry, healing zoster blisters to L anterior abdomen, no pu rulent drainage, no diffuse rash HEAD: Normocephalic, atraumatic, normal hair distribution for gender/age. EYES: Normal conjunctiva, no exudates on lids/lashes, no eye pain with EOM movement, EOMs intact, no facial or otic lesions ENT: Nares patent, no circumoral cyanosis, no facial swelling NECK: Supple, trachea midline, painless cervical ROM. LUNGS/CHEST: Lungs CTA bilaterally, non-labored respirations, normal A/P diameter, symmetrical expansion, no chest wall deformity HEART (CV/PV): Regular rate and rhythm without murmur, no peripheral edema, no JVD. ABDOMEN: Soft, non-distended, no guarding. MSK: Normal ROM, no swelling/deformity to bilateral UEs or LEs, moving all extremities without weakness, no cyanosis, spine midline without tenderness, normal curvature. NEURO: Mental Status AAOx4 - alert to person, place, time, events No facial droop, no forehead involvement. Motor: No focal weakness - strength 5/5 in bilateral UEs and LEs, proximal and distal, symmetric. Sensory: sensation intact to light touch globally. Gait normal: patient ambulated without ataxia into ED room. PSYCH: euthymic, cooperative, pleasant, appropriate speech Course Vital Signs Vital signs: Vital Signs Pulse 83 08/12/24 17:31 Respiratory Rate 20 08/12/24 17:31 Blood Pressure 155/116 H 08/12/24 17:31 Pulse Oximetry 100 08/12/24 17:31 Pulse 83 08/12/24 17:31 Respiratory Rate 20 08/12/24 17:31 Blood Pressure 155/116 H 08/12/24 17:31 Blood Pressure Position Sitting 08/12/24 17:31 Pulse Oximetry 100 08/12/24 17:31 Oxygen Delivery Method Room Air 08/12/24 17:31 Oxygen Flow Rate 0 08/12/24 17:31 Medical Decision Making This dictation utilizes [id number] dictation software and may contain unedited grammatical errors. 29 year-old female presents to ED today by POV/ambulating with a chief complaint of known shingles outbreak on L abdomen, with onset a few days ago. Quality described as painful area of healing blisters, now having some loss of voice that resolved, body aches, and neck muscle aches, no radiation to disseminated rash, neck stiffness, fever, new blisters, oral blisters. Severity is described as moderate. Palliating factors include on valacyclovir with healing of primary zoster blisters. Provoking factors include nothing specific. Patients' medical history: migraine, psoriasis. Family and social history: noncontributory. Pertinent exam findings / vital signs include healing zoster blisters to L anterior abdomen, no disseminated rash, no oral involvement, no nuchal rigidity, afebrile. Differential / pathologies of concern include zoster, side effects of medication, viral syndrome. Diagnostic studies of: -CBC, CMP, Lactate, Blood Cx's. -CBC unremarkable -CMP without actionable abnormality -Lactate 2.4, suspect mild dehydration, giving fluids, recheck 1.2 -Blood Cx's pending Interventions of: -1L IVF NS ED Course/Assessment/Plan: 29-year-old female presents with possible concurrent upper respiratory viral syndrome with loss of voice over the past couple days that resolved and is undergoing treatment for her known zoster to left anterior abdomen isolated in 1 dermatome with well-healing blisters. She reports some neck pain but there is no overt nuchal rigidity I do not suspect any disseminated zoster, has no eye pain reported, no diffuse rash, counseled the patient on taking regular doses of Tylenol and ibuprofen and continuing valacyclovir, strict return criteria for any worsening neck stiffness disseminated rash or other emergent concerns. Findings not consistent with disseminated zoster, ocular involvement, febrile illness. Disposition of zoster. Patient verbalized understanding of the plan and return to ED criteria and engaged in shared decision making. Medical Records Medical records reviewed: Yes I reviewed the patient's medical records. Lab Data Lab results reviewed: Yes I reviewed the patient's lab results. Labs: 08/12/24 18:38 Blood Blood Culture - Final NO GROWTH 120 HOURS 08/12/24 18:16 Blood Blood Culture - Final NO GROWTH 120 HOURS Laboratory Tests Range/Units 08/12/24 08/12/24 18:16 19:29 WBC (4.4-10.8) 10^3/uL 9.17 RBC (3.93-5.22) 10^6/uL 5.05 Hgb (11.2-15.7) g/dL 15.1 Hct (36.0-46.0) % 44.9 MCV (80-95) fL 89 MCH (27.0-33.0) pg 29.9 MCHC (32.0-36.0) % 33.6 RDW (11.7-14.6) % 12.6 Plt Count (130-400) 10^3/uL 300 MPV (8.0-11.0) fL 9.1 Immature Gran % % 1.0 Neutrophils % % 48.0 Lymphocytes % % 43.1 Monocytes % % 5.7 Eosinophils % % 1.2 Basophils % % 1.0 Nucleated RBC % (0.0-0.3) % 0.0 Absolute Neutrophils (1.2-6.7) 10^3/uL 4.40 Absolute Lymphocytes (1.2-3.4) 10^3/uL 3.95 H Absolute Monocytes (0.1-0.8) 10^3/uL 0.52 Absolute Eosinophils (0.0-0.7) 10^3/uL 0.11 Absolute Basophils (0.0-0.2) 10^3/uL 0.09 VBG Lactate (<or=2.0) mmol/L 2.4 H* 1.2 Sodium (136-145) mmol/L 139 Potassium (3.5-5.1) mmol/L 3.3 L Chloride (98-107) mmol/L 101 Carbon Dioxide (21.0-32.0) mmol/L 29.0 Anion Gap (3-11) mmol/L 9.0 BUN (7-18) mg/dL 12 Creatinine (0.55-1.02) mg/dL 1.0 Est GFR (CKD-EPI 2020) (mL/min/1.73m2) 77.24 Glucose (74-106) mg/dL 107 H Calcium (8.5-10.1) mg/dL 9.3 Total Bilirubin (0.2-1.0) mg/dL 0.2 AST (15-37) U/L 12 L ALT (14-59) U/L 34 Alkaline Phosphatase (46-116) U/L 97 Total Protein (6.4-8.2) g/dL 8.0 Albumin (3.4-5.0) g/dL 4.1 Quality:SDCO Health Related Social Needs: No Data to Display PFSH All Active Problems (Updated 08/12/24 @ 19:46 by TARYN Healy) Zoster (Acute) Shingles rash (Acute) Discharge of eye (Acute) COVID (Acute) Cough (Acute) Chest pain (Acute) Pneumonia (Acute) Allergies (Acute) Pyelonephritis (Acute) Chest pain (Acute) Pharyngitis (Acute) Epigastric abdominal pain (Acute) Viral syndrome (Acute) Migraine with aura and without status migrainosus (Acute) Severe concussion (Acute 02/22/17) Psoriasis (Acute 09/13/17) Moderately severe depression (Acute 02/22/17) Anxiety and depression (Acute 07/24/17) Medical History Congenital ndjale-nndjcul-zdslc reflux Family History Mother Depression Hyperlipidemia Father Depression Brother Asthma ADHD Maternal Grandfather Heart disease Maternal Grandmother Heart disease Brother Autism Paternal Grandfather No problems noted. Paternal Grandmother Glaucoma Social History Smoking/Tobacco Use Status: Never Smoking risk assessment performed?: Yes Alcohol Intake: current Alcohol Intake frequency: holidays/special occasions only Alcohol type: beer and hard liquor Drug use: Never Substance use type: does not use Caregiver/Support person: No Household members: spouse and significant other Housing: house Communication Needs: None current occupation: [employer] Pets and animals: Yes Pets and animals: cat(s) and dog(s) Sexually active: Yes Do you think of yourself as: straight/heterosexual Current gender identity: female What is your relationship status?: living with partner How often do you talk on the phone with friends or family?: three or more times per week How often do you get together with friends or relatives?: three or more times per week How often do you attend shinto or jain services?: decline to answer Do you belong to any clubs or organized social groups?: yes Panel score (0-1 are the most socially isolated patients): 3 What type of physical activity do you participate in: walking Duration: 15-30 minutes/day Frequency: 1-2 times per week Kendal/Shinto: Zoroastrianism Special kendal needs: No Seatbelt use: always Helmet use: Yes Helmet use: always Drive intox or ride w/intox wagon driver salesperson: No Do you feel safe at home: Yes Do you feel safe in your relationship?: Yes
[2024-08-12 18:24] LABS: Abs Immature Grans 0.09 10^3/uL (0.0-0.06); Absolute Basophil Count 0.09 10^3/uL (0.0-0.2); Absolute Eosinophil Count 0.11 10^3/uL (0.0-0.7); Absolute Lymphocyte Count 3.95 10^3/uL (1.2-3.4); Absolute Monocyte Count 0.52 10^3/uL (0.1-0.8); Eosinophils % 1.2 %; HCT 44.9 % (36.0-46.0); HGB 15.1 g/dL (11.2-15.7); Lactate 2.4 mmol/L (<or=2.0); Lymphocytes % 43.1 %; MCH 29.9 pg (27.0-33.0); MCHC 33.6 % (32.0-36.0); MCV 89 fL (80-95); MPV 9.1 fL (8.0-11.0); Monocytes % 5.7 %; Platelet Count 300 10^3/uL (130-400); RBC 5.05 10^6/uL (3.93-5.22); RDW 12.6 % (11.7-14.6); RDW-SD 41.3 fL
[2024-08-12] MEDS: Normal Saline 1,000 ML 1000 ML IV (18:25)
[2024-08-12 18:39] LABS: ALT 34 U/L (14-59); AST 12 U/L (15-37); Albumin 4.1 g/dL (3.4-5.0); Alkaline Phosphatase 97 U/L (46-116); BUN 12 mg/dL (7-18); Bilirubin, Total 0.2 mg/dL (0.2-1.0); Calcium 9.3 mg/dL (8.5-10.1); Chloride 101 mmol/L (98-107); Estimated GFR 77.24 (mL/min/1.73m2); Glucose 107 mg/dL (74-106); Potassium 3.3 mmol/L (3.5-5.1); Sodium 139 mmol/L (136-145)
[2024-08-12 18:40] LABS: WBC 9.17 10^3/uL (4.4-10.8)
[2024-08-12 19:32] LABS: Lactate 1.2 mmol/L (<or=2.0)
[2024-08-12 19:36] VITALS: BP 137/76; PULSE 77; RESP 16; TEMP 37.2; O2SAT 100
== END 2024-08-12 19:58 | disposition home or self-care (01) ==
PROVIDERS: Emergency Provider Physician Assistant; PCP Nurse Practitioner Family
DX: B02.9 Zoster without complications (principal)
CPT/HCPCS: 36415; 80053; 87040; 99283; 83605; 85025

== ENCOUNTER 2024-08-26 17:05 | Emergency (ER) | payer SELFPAY ==
[2024-08-26 17:11] VITALS: BP 153/91; PULSE 93; RESP 20; O2SAT 98
[2024-08-26 17:15] VITALS: BP 153/91; PULSE 93; RESP 20; O2SAT 98
--- NOTE | 2024-08-26 17:15 | DI.CT_ITS ---
Exam(s) CT ABDOMEN PELVIS W EXAM: CT ABDOMEN PELVIS W CLINICAL HISTORY: abdominal pain; hematemesis. TECHNIQUE: Imaging Protocol: Axial computed tomography images with coronal and sagittal reformatted images were created and reviewed CONTRAST MATERIAL: Intravenous: Omnipaque 350 Contrast volume:70 ml Oral: no COMPARISON: PE CT 29 December 2020 FINDINGS: ABDOMEN and PELVIS: Lung Bases: No acute findings. Liver: Normal density. No suspicious mass. Gallbladder and biliary tract: No radiodense calculus. No wall thickening or pericholecystic fluid. No biliary dilation. Pancreas: Normal density. No abnormal calcifications or inflammatory process. No evidence of mass. Spleen: Normal. Kidneys: Normal size and axis. Focal area of left renal scarring. No radiodense stones. No obstruct satnam uropathy. No suspicious masses seen. Adrenal glands: No masses seen. Vasculature: Abdominal aorta non-dilated. Soft tissues: Unremarkable. Bladder: No gross wall thickening. 3 millimeter calculus noted at the left side of the bladder which could be within the intramural portion of the distal ureter. Additional high-density debris seen on the left side of the bladder which may represent tiny stones.No focal mass. Bowel: No obstruction. No bowel wall thickening. Appendix normal. Peritoneal cavity: No ascites. No focal collection. No mesenteric inflammatory response. No free air . Bones: Unremarkable for age. Reproductive organs: Unremarkable. Lymph nodes: No pathologically enlarged lymph nodes. IMPRESSION:: Distal ureteral calculus versus bladder calculus. A few other tiny calculi are also pre sent. No evidence of hydronephrosis. RADIATION DOSE DELIVERED: 591.92mGy.cm Total DLP DATA REPOSITORY: All CT scans at this facility are submitted to the National Radiology Data Registry (NRDR) Dose Index Registry (DIR) with the [employer] (ACR). RADIATION OPTIMIZATION: All CT scans at this facility use at least one of these dose optimization te chniques: automated exposure control; mA and/or kV adjustment per patient size (includes targeted exa ms where dose is matched to clinical indication); or iterative reconstruction.
--- NOTE | 2024-08-26 17:19 | W.ED.GENAD ---
Discharge Plan Disposition Patient Disposition: Home Condition: Stable Discharge Details Clinical Impression: Left ureteral stone, Right ovarian cyst, Gastritis Primary Care Provider: Chayo Howard ED Provider: Terrence Washburn Home Meds and New Rx's Prescriptions: New tamsulosin 0.4 mg capsule 0.4 mg PO DAILY 14 Days Qty: 14 0RF Continued epinephrine [EpiPen 2-Steve] 0.3 mg/0.3 mL auto-injector 0.3 mg IM ONCE PRN (Reason: anaphylaxis) Qty: 2 0RF Rx Instructions: inject into anterolateral area of thigh (preferred) omeprazole magnesium [Prilosec OTC] 20 mg tablet,delayed release (DR/EC) 20 mg PO DAILY Qty: 90 3RF garlic 1 EACH tablet 1 tab PO DAILY sertraline 50 mg tablet 50 mg PO DAILY Discharge Instructions Instructions: Kidney Stone, Adult ED, Gastritis ED, Ovarian Cyst ED Additional Instructions: You were seen in the emergency department for your left-sided abdominal pain, there is a small 3 mm left ureteral stone that will likely pass, take the prescribed Flomax once daily, you likely had some exacerbation of your known gastritis/peptic ulcers from taking all the ibuprofen to treat your shingles over the past couple weeks. You also have an incidental finding of a right ovarian cyst. Please take 1000 mg of Tylenol 4 times per day, continue with your omeprazole twice per day, stay aggressively hydrated, please return for any significant increase in your left-sided abdominal or flank pain with fever, nausea or vomiting that is intractable or any other emergent concern. Referrals: Chayo Howard [Primary Care Provider] - Discharge Data Discharge Date/Time-TO BE ENTERED AT DEPARTURE: 08/26/24 22:39 HPI General Date/Time Provider Initiated Documentation: 08/26/24 17:08. HPI Narrative: 29 year-old female presents to ED today by POV/ambulating with a chief complaint of episodic stabbing pain in L lower abdomen with recent resolution of zoster rash in this area, as well as some hematemesis x2 today with history of ulcer- and significant ibuprofen use lately due to zoster outbreak. Quality described as generalized pain, indigestion, no radiation to active vomiting of blood, chest pain, intractable nausea/vomiting, black/bloody stools, fever, neck stiffness, diffuse rash. Severity is described as moderate. Palliating factors include nothing specific attempted- takes omeprazole. Provoking factors include nothing specific. Patient not anticoagulated. Related Data Home Medications ?Medication ?Instructions ?Recorded ?Confirmed garlic 1 tab PO DAILY 02/14/17 08/26/24 epinephrine 0.3 mg/0.3 mL 0.3 mg (0.3 mL) IM ONCE PRN 04/11/18 08/26/24 injection, auto-injector (EpiPen anaphylaxis #2 ea 2-Steve) omeprazole magnesium 20 mg 20 mg PO DAILY #90 tabs 06/18/20 08/26/24 tablet,delayed release (Prilosec OTC) sertraline 50 mg tablet 50 mg PO DAILY 12/05/23 08/26/24 tamsulosin 0.4 mg capsule 0.4 mg PO DAILY 14 days #14 caps 08/26/24 Previous Rx's ?Medication ?Instructions ?Recorded epinephrine 0.3 mg/0.3 mL 0.3 mg (0.3 mL) IM ONCE PRN 04/11/18 injection, auto-injector (EpiPen anaphylaxis #2 ea 2-Steve) omeprazole magnesium 20 mg 20 mg PO DAILY #90 tabs 06/18/20 tablet,delayed release (Prilosec OTC) tamsulosin 0.4 mg capsule 0.4 mg PO DAILY 14 days #14 caps 08/26/24 Allergies Allergy/AdvReac Type Severity Reaction Status Date / Time codeine Allergy Severe Hives Verified 08/26/24 17:16 kiwi Allergy Intermediate Swelling/Ed Verified 08/26/24 17:16 john ciprofloxacin (From Cipro) AdvReac Intermediate vomiting Verified 08/26/24 17:16 General Stated Complaint: Abd Prob JOSELIN: 3 Review of Systems All systems reviewed & are unremarkable except as noted in HPI and below Exam Narrative Exam Narrative: GENERAL APPEARANCE: Well-nourished, non-toxic, awake and alert, atraumatic, no acute distress. SKIN: Warm, pink, dry, intact, without rashes/lesions/ulcerations. HEAD: Normocephalic, atraumatic, normal hair distribution for gender/age. EYES: Normal conjunctiva, no exudates on lids/lashes. ENT: Nares patent, no circumoral cyanosis, no facial swelling NECK: Supple, trachea midline, painless cervical ROM. LUNGS/CHEST: Lungs CTA bilaterally- no rhonchi/rales/wheezes diffusely, non-labored respirations, normal A/P diameter, symmetrical expansion, no chest wall deformity HEART (CV/PV): Regular rate and rhythm without murmur, no peripheral edema, no JVD. ABDOMEN: Soft, non-distended, no guarding, LLQ tenderness, no CVA tenderness to percussion bilaterally. MSK: Normal ROM, no swelling/deformity to bilateral UEs or LEs, moving all extremities without weakness, no cyanosis, spine midline without tenderness, normal curvature. NEURO: Mental Status AAOx4 - alert to person, place, time, events No facial droop, no forehead involvement. Motor: No focal weakness - strength 5/5 in bilateral UEs and LEs, proximal and distal, symmetric. Sensory: sensation intact to light touch globally. Gait normal: patient ambulated without ataxia into ED room. PSYCH: euthymic, cooperative, pleasant, appropriate speech Course Vital Signs Vital signs: Vital Signs Pulse 93 H 08/26/24 17:11 Respiratory Rate 20 08/26/24 17:11 Blood Pressure 153/91 H 08/26/24 17:11 Pulse Oximetry 98 08/26/24 17:11 Pulse 93 H 08/26/24 17:15 Respiratory Rate 20 08/26/24 17:15 Blood Pressure 153/91 H 08/26/24 17:15 Blood Pressure Position Sitting 08/26/24 17:15 Pulse Oximetry 98 08/26/24 17:15 Oxygen Delivery Method Room Air 08/26/24 17:15 Oxygen Flow Rate 0 08/26/24 17:15 Medical Decision Making This dictation utilizes [id number] dictation software and may contain unedited grammatical errors. 29 year-old female presents to ED today by POV/ambulating with a chief complaint of episodic stabbing pain in L lower abdomen with recent resolution of zoster rash in this area, as well as some hematemesis x2 today with history of ulcer- and significant ibuprofen use lately due to zoster outbreak. Quality described as generalized pain, indigestion, no radiation to active vomiting of blood, chest pain, intractable nausea/vomiting, black/bloody stools, fever, neck stiffness, diffuse rash. Severity is described as moderate. Palliating factors include nothing specific attempted- takes omeprazole. Provoking factors include nothing specific. Patients' medical history: Gastritis, left ureteral stone, zoster, psoriasis, anxiety. Family and social history: Noncontributory. Pertinent exam findings / vital signs include left lower quadrant abdominal tenderness, benign cardiopulmonary exam, no diffuse rash, neuro intact, nontoxic and afebrile. Differential / pathologies of concern include peptic ulcer, gastritis, left ureteral stone, postherpetic neuralgia. Diagnostic studies of: - CBC, CMP, lactate, serial troponin, lipase, UA, CT ABD/pelvis with contrast - CBC shows no leukocytosis, no anemia - Lactate negative - CMP without any actionable abnormality - Serial troponins negative - Lipase normal - CT shows 3mm L distal ureteral stone, right ovarian cyst - UA shows squamous contamination, would advise repeat UA outpatient Interventions of: - IV Tylenol, Zofran, Flomax, Protonix, Rx for tamsulosin. ED Course/Assessment/Plan: 29-year-old female presents with left lower quadrant abdominal tenderness, has a left ureteral stone that will likely pass with tamsulosin, UA shows squamous contamination recommend repeat UA, otherwise no elevated white blood cells, patient was comfortable with this disposition she also had an incidental finding of right ovarian cyst, counseled on strict return criteria for any worsening fevers, urinary retention, significant increase in pain or intractable nausea or vomiting, I advised her to take her omeprazole twice per day. Findings not consistent with overt infected kidney stone, no fever, nontoxic, ovarian torsion, cyst is not large enough, sepsis, urinary retention, Dyana-Newman tear or Boerhaave syndrome. Disposition of gastritis, right ovarian cyst, left ureteral stone. Patient verbalized understanding of the plan and return to ED criteria and engaged in shared decision making. Medical Records Medical records reviewed: Yes I reviewed the patient's medical records. Imaging Data Radiologic Study: Attestation: I personally reviewed and interpreted this imaging study as follows: Imaging: CT Scan Radiologist's impression: Exam: CT Abdomen And Pelvis With Contrast Exam date and time: 08/26/2024 7:56 PM Age: 29 years old Clinical indication: Abdominal pain; Additional info: Abdominal pain; Hematemesis TECHNIQUE: Imaging protocol: Computed tomography of the abdomen and pelvis with contrast. Contrast material: OMNI 350; Contrast volume: 75 ml; Contrast route: INTRAVENOUS (IV); COMPARISON: CT CHEST PE CTA 12/29/2020 11:04 PM FINDINGS: Lungs: Lung bases clear Liver: Normal appearing liver. Gallbladder and biliary ducts: Gallbladder partially collapsed. No calcified gallstones seen. No biliary dilatation. Pancreas: Normal appearing pancreas. Spleen: Normal appearing spleen. Adrenal glands: Normal appearing adrenal glands. Kidneys and ureters: Normal-appearing right kidney. Renal cortical scarring on the left suggesting prior renal insults. No hydronephrosis or ureterectasis. 3 mm distal left ureteral calculus on image 79 of series 8 with adjacent subtle amorphous calcific density material in the region of the left ureterovesical junction on images 78-79. Stomach and bowel: No oral contrast. Stomach partially decompressed. No small bowel dilatation to suggest obstruction. Normal-appearing colon. No evidence of diverticulitis or colitis. Appendix: Normal appendix. Intraperitoneal space: Trace pelvic fluid. No free air. Vasculature: Normal caliber abdominal aorta. Lymph nodes: No pathologically enlarged mesenteric, retroperitoneal, or pelvic sidewall lymph nodes. Urinary bladder: Urinary bladder partially collapsed but grossly unremarkable, as seen. Reproductive: Normal-sized retroverted, retroflexed uterus. Ovaries partially obscured but normal in size. Trace fluid in the right adnexal region. Suggestion of a collapsing right ovarian corpus luteum measuring 1.4 cm x 0.8 cm, best demonstrated by images 74 of series 8 and 32 of series 4 but not well demonstrated by today's exam. Bones/joints: No acute fracture seen among the bones of the abdomen or pelvis. Soft tissues: Tiny fat-containing ventral hernia at the umbilicus, doubtful clinical significance. IMPRESSION: 1. Suspected 1.4 cm x 0.8 cm collapsing right ovarian corpus luteum. Trace fluid in the right adnexal region and cul-de-sac of Nicholas. 2. 3 mm distal left ureteral calculus. No upstream ureterectasis or hydronephrosis to suggest obstruction; however, there is renal cortical scarring on the left. Subtle adjacent amorphous calcific density material in the region of the left ureterovesical junction on images 70 8-79, uncertain etiology. Debris in the bladder or tiny stones within the intramural portion of the ureter or in the urinary bladder could have this appearance. An alternative etiology is not excluded. Clinical correlation is recommended. Dictated and Authenticated by: Meliton Boyd MD. Lab Data Lab results reviewed: Yes I reviewed the patient's lab results. Labs: Laboratory Tests Range/Units 08/26/24 08/26/2408/26/25 18:18 19:00 19:22 WBC (4.4-10.8) 10^3/uL 6.81 RBC (3.93-5.22) 10^6/uL 4.99 Hgb (11.2-15.7) g/dL 15.1 Hct (36.0-46.0) % 44.5 MCV (80-95) fL 89 MCH (27.0-33.0) pg 30.3 MCHC (32.0-36.0) % 33.9 RDW (11.7-14.6) % 12.8 Plt Count (130-400) 10^3/uL 273 MPV (8.0-11.0) fL 9.5 Immature Gran % % 0.1 Neutrophils % % 53.8 Lymphocytes % % 36.1 Monocytes % % 7.2 Eosinophils % % 2.1 Basophils % % 0.7 Nucleated RBC % (0.0-0.3) % 0.0 Absolute Neutrophils (1.2-6.7) 10^3/uL 3.66 Absolute Lymphocytes (1.2-3.4) 10^3/uL 2.46 Absolute Monocytes (0.1-0.8) 10^3/uL 0.49 Absolute Eosinophils (0.0-0.7) 10^3/uL 0.14 Absolute Basophils (0.0-0.2) 10^3/uL 0.05 VBG Lactate (<or=2.0) mmol/L 0.9 Sodium (136-145) mmol/L 141 Potassium (3.5-5.1) mmol/L 4.0 Chloride (98-107) mmol/L 103 Carbon Dioxide (21.0-32.0) mmol/L 27.3 Anion Gap (3-11) mmol/L 10.7 BUN (7-18) mg/dL 15 Creatinine (0.55-1.02) mg/dL 1.0 Est GFR (CKD-EPI 2020) (mL/min/1.73m2) 77.24 Glucose (74-106) mg/dL 85 Calcium (8.5-10.1) mg/dL 9.5 Total Bilirubin (0.2-1.0) mg/dL 0.3 AST (15-37) U/L 15 ALT (14-59) U/L 32 Alkaline Phosphatase (46-116) U/L 86 Troponin I (<or=51) ng/L 4 5 Total Protein (6.4-8.2) g/dL 8.2 Albumin (3.4-5.0) g/dL 4.1 Lipase (<78) U/L 59 Urine Color (Yellow) Yellow Urine Clarity (Clear) Sl Cloudy Urine pH (5-8) 5.5 Ur Specific [place] (1.005-1.025) 1.025 Urine Protein (Neg-Trace) mg/dL Negative Urine Ketones (Negative) mg/dL Negative Urine Blood (Negative) Negative Urine Nitrite (Negative) Negative Urine Bilirubin (Negative) Negative Urine Urobilinogen (Up to 0.2) mg/dL 0.2 Ur Leukocyte Esterase (Negative) Moderate H Urine RBC (0-2) HPF 3-5 H Urine WBC (0-5) HPF 20-50 H Ur Epithelial Cells (Negative) HPF Many Urine Crystals (Negative) HPF Negative Urine Bacteria (Negative) HPF Many Urine Mucus (Negative) Negative Urine Other (Negative) Rare Renal Ur Culture Indicated? No/Sq. Contamination Urine Glucose (Negative) mg/dL Negative Quality:SDOH Health Related Social Needs: No Data to Display PFSH All Active Problems (Updated 08/26/24 @ 22:24 by TARYN Healy) Gastritis (Acute) Right ovarian cyst (Acute) Left ureteral stone (Acute) Zoster (Acute) Shingles rash (Acute) Discharge of eye (Acute) COVID (Acute) Cough (Acute) Chest pain (Acute) Pneumonia (Acute) Allergies (Acute) Pyelonephritis (Acute) Chest pain (Acute) Pharyngitis (Acute) Epigastric abdominal pain (Acute) Viral syndrome (Acute) Migraine with aura and without status migrainosus (Acute) Severe concussion (Acute 02/22/17) Psoriasis (Acute 09/13/17) Moderately severe depression (Acute 02/22/17) Anxiety and depression (Acute 07/24/17) Medical History Congenital ttngjy-duazvyj-tnlpb reflux Family History Mother Depression Hyperlipidemia Father Depression Brother Asthma ADHD Maternal Grandfather Heart disease Maternal Grandmother Heart disease Brother Autism Paternal Grandfather No problems noted. Paternal Grandmother Glaucoma Social History Smoking/Tobacco Use Status: Never Smoking risk assessment performed?: Yes Alcohol Intake: current Alcohol Intake frequency: holidays/special occasions only Alcohol type: beer and hard liquor Drug use: Never Substance use type: does not use Caregiver/Support person: No Household members: spouse and significant other Housing: house Communication Needs: None current occupation: [employer] Pets and animals: Yes Pets and animals: cat(s) and dog(s) Sexually active: Yes Do you think of yourself as: straight/heterosexual Current gender identity: female What is your relationship status?: living with partner How often do you talk on the phone with friends or family?: three or more times per week How often do you get together with friends or relatives?: three or more times per week How often do you attend anabaptism or sabianism services?: decline to answer Do you belong to any clubs or organized social groups?: yes Panel score (0-1 are the most socially isolated patients): 3 What type of physical activity do you participate in: walking Duration: 15-30 minutes/day Frequency: 1-2 times per week Kendal/Mosque: Buddhist Special kendal needs: No Seatbelt use: always Helmet use: Yes Helmet use: always Drive intox or ride w/intox pile driver operator barge mounted: No Do you feel safe at home: Yes Do you feel safe in your relationship?: Yes PAWSS Have you Been Recently Intoxicated or Drunk Within the Last 30 days?: No Have you Ever Experienced Previous Episodes of Alcohol Withdrawal?: No Have you ever Experienced Withdrawal Seizures?: No Have you ever Experienced Delirium Tremens(DT)s?: No Have you ever undergone Alcohol Rehabilitation Treatment (i.e, inpt ot outpatient treatment programs)?: No Have you ever Experienced Blackouts?: No Have you ever Combined Alcohol with other Downers within the last 90 days?: No Have you ever Combined Alcohol with any other Substance of Abuse during the last 90 days?: No Positive Blood Alcohol level on Presentation? [PCS.BAL]: No Evidence of Increased Autonomic Activity (i.e. HR>120, tremor, sweating, agitation, nausea)?: No Result: 0
[2024-08-26 18:26] LABS: Lactate 0.9 mmol/L (<or=2.0)
[2024-08-26 18:27] LABS: Abs Immature Grans 0.01 10^3/uL (0.0-0.06); Absolute Basophil Count 0.05 10^3/uL (0.0-0.2); Absolute Eosinophil Count 0.14 10^3/uL (0.0-0.7); Absolute Lymphocyte Count 2.46 10^3/uL (1.2-3.4); Absolute Monocyte Count 0.49 10^3/uL (0.1-0.8); Absolute Neutrophil Count 3.66 10^3/uL (1.2-6.7); Basophils % 0.7 %; Eosinophils % 2.1 %; HCT 44.5 % (36.0-46.0); HGB 15.1 g/dL (11.2-15.7); Immature Grans % 0.1 %; Lymphocytes % 36.1 %; MCH 30.3 pg (27.0-33.0); MCHC 33.9 % (32.0-36.0); MCV 89 fL (80-95); MPV 9.5 fL (8.0-11.0); Monocytes % 7.2 %; Neutrophils % 53.8 %; Platelet Count 273 10^3/uL (130-400); RBC 4.99 10^6/uL (3.93-5.22); RDW 12.8 % (11.7-14.6); RDW-SD 41.8 fL; WBC 6.81 10^3/uL (4.4-10.8)
[2024-08-26] MEDS: Ondansetron 4 MG/2 ML VIAL IVP (18:30)
[2024-08-26] MEDS: ACETAMINOPHEN 1,000 MG/100 ML BTL 400 MG IVPB (18:31)
[2024-08-26] MEDS: Normal Saline 1,000 ML 1000 ML IV (18:32)
[2024-08-26] MEDS: Pantoprazole 40 MG VIAL IVP (18:32)
[2024-08-26 18:58] LABS: ALT 32 U/L (14-59); AST 15 U/L (15-37); Albumin 4.1 g/dL (3.4-5.0); Alkaline Phosphatase 86 U/L (46-116); Anion Gap 10.7 mmol/L (3-11); BUN 15 mg/dL (7-18); Bilirubin, Total 0.3 mg/dL (0.2-1.0); CO2 27.3 mmol/L (21.0-32.0); Calcium 9.5 mg/dL (8.5-10.1); Chloride 103 mmol/L (98-107); Estimated GFR 77.24 (mL/min/1.73m2); Glucose 85 mg/dL (74-106); Lipase 59 U/L (<78); Sodium 141 mmol/L (136-145); Total Protein 8.2 g/dL (6.4-8.2); Troponin I 4 ng/L (<or=51)
[2024-08-26 19:34] LABS: Bilirubin Negative (Negative); Blood Negative (Negative); Clarity Sl Cloudy (Clear); Glucose Negative (Negative); Ketones Negative (Negative); Leukocyte Esterase Moderate (Negative); Nitrite Negative (Negative); Specific Gravity 1.025 (1.005-1.025); Urobilinogen 0.2 mg/dL (Up to 0.2); pH 5.5 (5-8)
[2024-08-26 19:47] LABS: Troponin I 5 ng/L (<or=51)
[2024-08-26 19:49] LABS: Bacteria Many HPF (Negative); C & S Indicated? No/Sq. Contamination; Crystals Negative HPF (Negative); Epithelial Cells Many HPF (Negative); Mucus Negative (Negative); Other Cells Rare Renal (Negative); WBC 20-50 HPF (0-5)
[2024-08-26] MEDS: Omnipaque 350 MG/ML 100 ML BTL IJ (20:05)
[2024-08-26] MEDS: Normal Saline - Diluent 50 ML VIAL IJ (20:06)
--- NOTE | 2024-08-26 22:18 | DI.VRAD_ITS ---
PROCEDURE INFORMATION: Exam: CT Abdomen And Pelvis With Contrast Exam date and time: 08/26/2024 7:56 PM Age: 29 years old Clinical indication: Abdominal pain; Additional info: Abdominal pain; Hematemesis TECHNIQUE: Imaging protocol: Computed tomography of the abdomen and pelvis with contrast. Contrast material: OMNI 350; Contrast volume: 75 ml; Contrast route: INTRAVENOUS (IV); COMPARISON: CT CHEST PE CTA 12/29/2020 11:04 PM FINDINGS: Lungs: Lung bases clear Liver: Normal appearing liver. Gallbladder and biliary ducts: Gallbladder partially collapsed. No calcified gallstones seen. No biliary dilatation. Pancreas: Normal appearing pancreas. Spleen: Normal appearing spleen. Adrenal glands: Normal appearing adrenal glands. Kidneys and ureters: Normal-appearing right kidney. Renal cortical scarring on the left suggesting prior renal insults. No hydronephrosis or ureterectasis. 3 mm distal left ureteral calculus on image 79 of series 8 with adjacent subtle amorphous calcific density material in the region of the left ureterovesical junction on images 78-79. Stomach and bowel: No oral contrast. Stomach partially decompressed. No small bowel dilatation to suggest obstruction. Normal-appearing colon. No evidence of diverticulitis or colitis. Appendix: Normal appendix. Intraperitoneal space: Trace pelvic fluid. No free air. Vasculature: Normal caliber abdominal aorta. Lymph nodes: No pathologically enlarged mesenteric, retroperitoneal, or pelvic sidewall lymph nodes. Urinary bladder: Urinary bladder partially collapsed but grossly unremarkable, as seen. Reproductive: Normal-sized retroverted, retroflexed uterus. Ovaries partially obscured but normal in size. Trace fluid in the right adnexal region. Suggestion of a collapsing right ovarian corpus luteum measuring 1.4 cm x 0.8 cm, best demonstrated by images 74 of series 8 and 32 of series 4 but not well demonstrated by today's exam. Bones/joints: No acute fracture seen among the bones of the abdomen or pelvis. Soft tissues: Tiny fat-containing ventral hernia at the umbilicus, doubtful clinical significance. IMPRESSION: 1. Suspected 1.4 cm x 0.8 cm collapsing right ovarian corpus luteum. Trace fluid in the right adnexal region and cul-de-sac of Nicholas. 2. 3 mm distal left ureteral calculus. No upstream ureterectasis or hydronephrosis to suggest obstruction; however, there is renal cortical scarring on the left. Subtle adjacent amorphous calcific density material in the region of the left ureterovesical junction on images 70 8-79, uncertain etiology. Debris in the bladder or tiny stones within the intramural portion of the ureter or in the urinary bladder could have this appearance. An alternative etiology is not excluded. Clinical correlation is recommended. Dictated and Authenticated by: Meliton Boyd MD. Orderin Maddison Ocampo MD
[2024-08-26 22:29] VITALS: BP 143/82; PULSE 84; RESP 16; TEMP 36.6; O2SAT 98
[2024-08-26] MEDS: Tamsulosin 0.4 MG CAPCR PO (22:31)
== END 2024-08-26 22:39 | disposition home or self-care (01) ==
PROVIDERS: Emergency Provider Physician Assistant; PCP Nurse Practitioner Family
DX: N20.1 Calculus of ureter (principal); N83.201 Unspecified ovarian cyst, right side; K52.9 Noninfective gastroenteritis and colitis, unspecified
CPT/HCPCS: 99285; 99284; 96375; 80053; 83690; 96365; 96366; 74177; 81003; 81015; 83605; 84484; 85025; J0131; J2405; J2470; J3490

== ENCOUNTER 2024-09-13 06:31 | Emergency (ER) | payer BC, SELFPAY ==
[2024-09-13 06:34] VITALS: BP 141/96; PULSE 109; RESP 18; TEMP 36.8; O2SAT 98
[2024-09-13 07:05] VITALS: BP 141/96; PULSE 109; RESP 18; TEMP 36.8; O2SAT 98
--- NOTE | 2024-09-13 07:15 | DI.RAD_ITS ---
Exam(s) XR CHEST 2V PA LATERAL EXAM: XR CHEST 2V PA LATERAL CLINICAL HISTORY: Cough, pna. TECHNIQUE: 2D digital imaging was performed. COMPARISON: CR XR CHEST 2V PA LATERAL from 02/22/2024 FINDINGS: 2 views: Heart size is normal. The mediastinum is not widened. Lungs are clear. No infiltrates nor pleural effusions. IMPRESSION: No acute pulmonary findings. DATA REPOSITORY: RADIATION DOSE DELIVERED:
[2024-09-13] MEDS: Acetaminophen 500 MG TAB 1000 MG PO (07:29)
--- NOTE | 2024-09-13 07:38 | ED.GENADUL_ITS ---
Discharge Plan Disposition Patient Disposition: Home Condition: Stable Discharge Details Clinical Impression: Bronchitis Primary Care Provider: Chayo Howard ED Provider: Smita Wood Home Meds and New Rx's Prescriptions: New ondansetron 4 mg tablet,disintegrating 4 mg PO Q8H PRNQty: 10 0RF benzonatate 100 mg capsule 100 mg PO TID PRNQty: 20 0RF No Action epinephrine [EpiPen 2-Steve] 0.3 mg/0.3 mL auto-injector 0.3 mg IM ONCE PRN (Reason: anaphylaxis) Qty: 2 0RF Rx Instructions: inject into anterolateral area of thigh (preferred) omeprazole magnesium [Prilosec OTC] 20 mg tablet,delayed release (DR/EC) 20 mg PO DAILY Qty: 90 3RF garlic 1 EACH tablet 1 tab PO DAILY sertraline 50 mg tablet 50 mg PO DAILY Discharge Instructions Instructions: Bronchitis, Adult ED Additional Instructions: You were seen in the emergency department today for evaluation of cough and bodyaches consistent with bronchitis. In our department you had a full physical examination performed, and had an x-ray that did not show any sign of pneumonia. Bronchitis is typically caused by a virus and unfortunately does not improve with antibiotics. Treatment is with good hydration and nutrition, fever and pain control, and cough management. I have provided you with a prescription for Tessalon Perles to be used for cough in addition to cough drops, tea with honey, etc. Additionally, I provided you with some Zofran to help you maintain your hydration. Please use therapeutic dosing of Tylenol (acetaminophen) & Advil (ibuprofen) in an alternating fashion as follows: Take 1000mg of Tylenol every 6 hours without missing doses- that is 4 times per day. Detention in between the Tylenol doses, take 600mg of Advil also on a 6 hour schedule, that is also 4 times per day. With this strategy, you will be taking something for fever/pain as often as every 3 hours. The daily maximum dosing of Tylenol is 4000mg, and the daily maximum dosing of Advil is 2400mg. Please note that some common cold medications & prescription pain medications may contain acetaminophen and you need to read OTC drug labels and factor that in to maximum daily doses. Please follow-up with your primary care provider in the next few days to discuss this visit and any symptoms that change, worsen, or persist. Thank you for allowing us to be part of your care. Stand Alone Forms: Work Release Discharge Data Discharge Date/Time-TO BE ENTERED AT DEPARTURE: 09/13/24 08:30 HPI General Mode of arrival: ambulatory . Date/Time Provider Initiated Documentation: 09/13/24 06:39 . Limitations to Documentation: no limitations . Information obtained by: patient and old records reviewed . HPI Narrative: This is a 29-year-old female patient with a past medical history significant for ovarian cyst, reflux of the ureter/kidneys, peptic ulcer disease, presenting for evaluation of cough, body aches, and fever. She developed a fever by Mondayon, accompanied by severe joint pain described as constant with intermittent shooting sensations. Her energy levels have been significantly depleted, with periods of rest required after minimal exertion such as laundry. Over the week, she has developed a persistent cough, shortness of breath, and nasal congestion, although no nasal discharge is present. Her cough produces clear sputum. She has tested negative for both COVID-19 and influenza. She has been absent from work for three 12-hour shifts due to these symptoms. Her last recorded fever was on Monday, which resolved without medication. Since then, she has been experiencing sweating. She has no history of asthma or COPD but has had pneumonia and bronchitis in the past. She reports recent health issues including an ovarian cyst, kidney stone, shingles, and a respiratory infection. She reports no recent sick contacts. She maintains hydration but reports a decreased appetite. She has not taken any medication today. She experiences pain after deep breathing following coughing episodes, which she attributes to muscle strain. She has been managing her symptoms with Tylenol and Advil, taken alternately, and has also tried [place] and DayQuil without relief. She has been experiencing abdominal pain and nausea. She is currently trying to conceive and took a test last night, which was negative. Related Data Home Medications ?Medication ?Instructions ?Recorded ?Confirmed garlic 1 tab PO DAILY 02/14/17 09/13/24 epinephrine 0.3 mg/0.3 mL 0.3 mg (0.3 mL) IM ONCE PRN 04/11/18 09/13/24 injection, auto-injector (EpiPen anaphylaxis #2 ea 2-Steve) omeprazole magnesium 20 mg 20 mg PO DAILY #90 tabs 06/18/20 09/13/24 tablet,delayed release (Prilosec OTC) sertraline 50 mg tablet 50 mg PO DAILY 12/05/23 09/13/24 benzonatate 100 mg capsule 100 mg PO TID PRN #20 caps 09/13/24 ondansetron 4 mg disintegrating 4 mg PO Q8H PRN #10 tabs 09/13/24 tablet Previous Rx's ?Medication ?Instructions ?Recorded epinephrine 0.3 mg/0.3 mL 0.3 mg (0.3 mL) IM ONCE PRN 04/11/18 injection, auto-injector (EpiPen anaphylaxis #2 ea 2-Steve) omeprazole magnesium 20 mg 20 mg PO DAILY #90 tabs 06/18/20 tablet,delayed release (Prilosec OTC) benzonatate 100 mg capsule 100 mg PO TID PRN #20 caps 09/13/24 ondansetron 4 mg disintegrating 4 mg PO Q8H PRN #10 tabs 09/13/24 tablet Allergies Allergy/AdvReac Type Severity Reaction Status Date / Time codeine Allergy Severe Hives Verified 09/13/24 07:02 kiwi Allergy Intermediate Swelling/Ed Verified 09/13/24 07:02 john ciprofloxacin (From Cipro) AdvReac Intermediate vomiting Verified 09/13/24 07:02 General Stated Complaint: RespSymp JOSELIN: 3 Exam Narrative Exam Narrative: Gen: awake and alert, in no apparent distress. Appears well nourished. HEENT: PERRL, EOMs full and without nystagmus. External ears and nose normal, mucous membranes moist. Left TM clear, right TM partially wax occluded but visual TM without bulging or erythema. Posterior pharynx without erythema, exudate, or swelling Neck: Supple, full range of motion, no observable masses Lungs: No increased work of breathing, lung sounds clear and equal bilaterally without wheezes, rhonchi, or rales. Occasional dry cough appreciated during this provider's examination CV: Heart with regular rate and rhythm, no murmurs auscultated. Strong and symmetrical radial pulses. Abdomen: Soft, nondistended, non-tender to palpation. No rigidity, rebound tenderness, or guarding. MSK: No joint swelling, no redness. Full ROM without limitation, no external traumatic findings. Skin: No rashes or lesions to visualized skin. Normal color, warm, and dry. Neuro: Symmetrical face, no apparent gross motor or sensory deficits. Clear speech, ambulates with steady gait. Psych: Appropriate for situation. Course Vital Signs Vital signs: Vital Signs Temperature 36.8 C 09/13/24 06:34 Pulse 109 H 09/13/24 06:34 Respiratory Rate 18 09/13/24 06:34 Blood Pressure 141/96 H 09/13/24 06:34 Pulse Oximetry 98 09/13/24 06:34 Temperature 36.8 C 09/13/24 07:05 Temperature Source Oral 09/13/24 07:05 Pulse 109 H 09/13/24 07:05 Respiratory Rate 18 09/13/24 07:05 Respiratory Effort Normal 09/13/24 07:03 Respiratory Depth Normal 09/13/24 07:03 Blood Pressure 141/96 H 09/13/24 07:05 Blood Pressure Position Sitting 09/13/24 07:05 Pulse Oximetry 98 09/13/24 07:05 Oxygen Delivery Method Room Air 09/13/24 07:05 Oxygen Flow Rate 0 09/13/24 07:05 Pain Level 10 09/13/24 07:05 Medical Decision Making In brief, this is a 29-year-old female patient presenting for evaluation of approximately 5 days of fever, body aches, shortness of breath and cough. Differential includes but is not limited to viral URI, bronchitis, pneumonia. I appreciate no wheezing to suggest reactive airway disease exacerbation, the patient has no personal history of cardiac disease or heart failure to suggest pulmonary edema or pleural effusion. She has no ongoing tachycardia, hypoxia, or evidence of DVT to significantly increase my concern for pulmonary embolism, and I feel an infectious pathology is much more likely. She is maintaining her hydration and I have a low concern for metabolic or electrolyte derangement, kidney injury. We will obtain an x-ray of the chest and provide the patient with a dose of Tylenol for body aches. As the patient's duration of symptoms is approximately 5 days, and she has had negative viral testing already I do not feel that we need to repeat the viral swab at this time as it would be unlikely to change clinical management. At this time I do not see indication to proceed with advanced imaging or laboratory studies. -Chest x-ray reviewed by myself, showing no focal consolidations concerning for pneumonia. The patient reports improvement in her body aches with the Tylenol and remains with hemodynamically appropriate vital signs. Workup at this time most concerning for bronchitis, and I counseled the patient on conservative management and provided her with prescriptions for Zofran to maintain hydration and Tessalon Perles for cough. At this time, the patient has had a full medical evaluation and is safe for discharge to home. They are hemodynamically stable, ambulatory, and tolerating PO. They are understanding of the follow-up plan and return precautions. They left our facility without incident. Smita Wood MD Medical Records Medical records reviewed: Yes I reviewed the patient's medical records. Lab Data Lab results reviewed: No I reviewed the patient's lab results. Quality:SDOH Health Related Social Needs: No Data to Display PFSH All Active Problems (Updated 09/13/24 @ 08:17 by Smita Wood MD) Bronchitis (Acute) Gastritis (Acute) Right ovarian cyst (Acute) Left ureteral stone (Acute) COVID (Acute) Cough (Acute) Chest pain (Acute) Pneumonia (Acute) Allergies (Acute) Pyelonephritis (Acute) Chest pain (Acute) Pharyngitis (Acute) Epigastric abdominal pain (Acute) Viral syndrome (Acute) Migraine with aura and without status migrainosus (Acute) Severe concussion (Acute 02/22/17) Psoriasis (Acute 09/13/17) Moderately severe depression (Acute 02/22/17) Anxiety and depression (Acute 07/24/17) Medical History Congenital swrkib-nmshkdp-hqwkm reflux Family History Mother Depression Hyperlipidemia Father Depression Brother Asthma ADHD Maternal Grandfather Heart disease Maternal Grandmother Heart disease Brother Autism Paternal Grandfather No problems noted. Paternal Grandmother Glaucoma Social History Smoking/Tobacco Use Status: Never Smoking risk assessment performed?: Yes Alcohol Intake: current Alcohol Intake frequency: holidays/special occasions only Alcohol type: beer and hard liquor Drug use: Never Substance use type: does not use Caregiver/Support person: No Household members: spouse and significant other Housing: house Communication Needs: None current occupation: [employer] Pets and animals: Yes Pets and animals: cat(s) and dog(s) Sexually active: Yes Do you think of yourself as: straight/heterosexual Current gender identity: female What is your relationship status?: living with partner How often do you talk on the phone with friends or family?: three or more times per week How often do you get together with friends or relatives?: three or more times per week How often do you attend denominational or druze services?: decline to answer Do you belong to any clubs or organized social groups?: yes Panel score (0-1 are the most socially isolated patients): 3 What type of physical activity do you participate in: walking Duration: 15-30 minutes/day Frequency: 1-2 times per week Kendal/Shinto: Anglican Special kendal needs: No Seatbelt use: always Helmet use: Yes Helmet use: always Drive intox or ride w/intox 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
[2024-09-13 07:47] VITALS: BP 143/95; PULSE 90; RESP 16; O2SAT 98
[2024-09-13 08:29] VITALS: BP 133/86; PULSE 77; RESP 16; O2SAT 100
--- NOTE | 2024-09-13 08:47 | DI.VRAD_ITS ---
PROCEDURE INFORMATION: Exam: XR Chest Exam date and time: 09/13/2024 7:36 AM Age: 29 years old Clinical indication: Cough and other: Pna; Cough, pna TECHNIQUE: Imaging protocol: Radiologic exam of the chest. Views: 2 views. COMPARISON: CR XR CHEST 2V PA LATERAL 02/22/2024 3:17 PM FINDINGS: Lungs: Bilateral perihilar peribronchial thickening. Pleural spaces: No pneumothorax or pleural effusion. Heart/Mediastinum: Heart is not enlarged. Bones/joints: No acute abnormality. IMPRESSION: Bilateral perihilar peribronchial thickening, probable bronchitis. No lobar consolidation. Dictated and Authenticated by: Erin Valencia MD. Orderin St. Akhil Ordoñez MD
== END 2024-09-13 08:30 | disposition home or self-care (01) ==
PROVIDERS: Emergency Provider Emergency Medicine; PCP Nurse Practitioner Family
DX: J40 Bronchitis, not specified as acute or chronic (principal)
CPT/HCPCS: 99283 ×2; 71046

== ENCOUNTER 2024-11-25 06:20 | Emergency (ER) | payer BC, SELFPAY ==
[2024-11-25 06:23] VITALS: BP 143/83; PULSE 72; RESP 18; O2SAT 97
[2024-11-25 06:49] LABS: Abs Immature Grans 0.01 10^3/uL (0.0-0.06); HCT 41.0 % (36.0-46.0); HGB 14.1 g/dL (11.2-15.7); Immature Grans % 0.2 %; MCH 29.7 pg (27.0-33.0); MCHC 34.4 % (32.0-36.0); MCV 87 fL (80-95); MPV 9.4 fL (8.0-11.0); Platelet Count 260 10^3/uL (130-400); RBC 4.74 10^6/uL (3.93-5.22); RDW 11.9 % (11.7-14.6); RDW-SD 38.3 fL; WBC 5.71 10^3/uL (4.4-10.8)
[2024-11-25 06:57] VITALS: TEMP 36.2
[2024-11-25] MEDS: Ketorolac 15 MG/ML VIAL IVP (07:06)
[2024-11-25 07:07] LABS: ALT 31 U/L (14-59); AST 18 U/L (15-37); Albumin 3.7 g/dL (3.4-5.0); Alkaline Phosphatase 88 U/L (46-116); Anion Gap 8.5 mmol/L (3-11); BUN 14 mg/dL (7-18); Bilirubin, Total 0.3 mg/dL (0.2-1.0); CO2 28.5 mmol/L (21.0-32.0); Calcium 8.8 mg/dL (8.5-10.1); Chloride 104 mmol/L (98-107); Estimated GFR 77.24 (mL/min/1.73m2); Glucose 87 mg/dL (74-106); Magnesium 2.0 mg/dL (1.8-2.4); Potassium 3.9 mmol/L (3.5-5.1); Sodium 141 mmol/L (136-145); Total Protein 7.3 g/dL (6.4-8.2)
[2024-11-25] MEDS: ACETAMINOPHEN 1,000 MG/100 ML BAG 1000 MG (07:07)
[2024-11-25] MEDS: Lactated Ringers 1,000 ML 1000 ML IV (07:08)
--- NOTE | 2024-11-25 07:14 | W.ED.GENAD ---
Discharge Plan Discharge Details Chief Complaint: Abd Prob Clinical Impression: Left lateral abdominal pain Primary Care Provider: Chayo Howard ED Provider: Terrence Jimenez Home Meds and New Rx's Prescriptions: No Action epinephrine [EpiPen 2-Steve] 0.3 mg/0.3 mL auto-injector 0.3 mg IM ONCE PRN (Reason: anaphylaxis) Qty: 2 0RF Rx Instructions: inject into anterolateral area of thigh (preferred) omeprazole magnesium [Prilosec OTC] 20 mg tablet,delayed release (DR/EC) 20 mg PO DAILY Qty: 90 3RF garlic 1 EACH tablet 1 tab PO DAILY sertraline 50 mg tablet 50 mg PO DAILY ondansetron 4 mg tablet,disintegrating 4 mg PO Q8H PRNQty: 10 0RF benzonatate 100 mg capsule 100 mg PO TID PRNQty: 20 0RF HPI General Date/Time Provider Initiated Documentation: 11/25/24 06:28. HPI Narrative: 29-year-old female with a past medical history of suspected endometriosis, polycystic ovarian syndrome, history of renal reflux as a child, ovarian cyst, previous kidney stone, presents today with sudden onset left-sided flank and abdominal pain that started at 1 AM. It is sharp in nature, radiates from the left flank to the left lower quadrant. She admits to nausea but no vomiting. She denies any urinary changes or complaints. No dysuria or hematuria. She denies any fever or chills. No other complaints at this time. She denies any vaginal discharge. She is on time for her current menstrual cycle. Related Data Home Medications ?Medication ?Instructions ?Recorded ?Confirmed garlic 1 tab PO DAILY 02/14/17 11/25/24 epinephrine 0.3 mg/0.3 mL 0.3 mg (0.3 mL) IM ONCE PRN 04/11/18 11/25/24 injection, auto-injector (EpiPen anaphylaxis #2 ea 2-Steve) omeprazole magnesium 20 mg 20 mg PO DAILY #90 tabs 06/18/20 11/25/24 tablet,delayed release (Prilosec OTC) sertraline 50 mg tablet 50 mg PO DAILY 12/05/23 11/25/24 benzonatate 100 mg capsule 100 mg PO TID PRN #20 caps 09/13/24 11/25/24 Held on 11/25/24. Instructions: Pt Stopped/Never Started ondansetron 4 mg disintegrating 4 mg PO Q8H PRN #10 tabs 09/13/24 11/25/24 tablet Held on 11/25/24. Instructions: Pt Stopped/Never Started Previous Rx's ?Medication ?Instructions ?Recorded epinephrine 0.3 mg/0.3 mL 0.3 mg (0.3 mL) IM ONCE PRN 04/11/18 injection, auto-injector (EpiPen anaphylaxis #2 ea 2-Steve) omeprazole magnesium 20 mg 20 mg PO DAILY #90 tabs 06/18/20 tablet,delayed release (Prilosec OTC) benzonatate 100 mg capsule 100 mg PO TID PRN #20 caps 09/13/24 Held on 11/25/24. Instructions: Pt Stopped/Never Started ondansetron 4 mg disintegrating 4 mg PO Q8H PRN #10 tabs 09/13/24 tablet Held on 11/25/24. Instructions: Pt Stopped/Never Started Allergies Allergy/AdvReac Type Severity Reaction Status Date / Time codeine Allergy Severe Hives Verified 11/25/24 06:27 kiwi Allergy Intermediate Swelling/Ed Verified 11/25/24 06:27 john ciprofloxacin (From Cipro) AdvReac Intermediate vomiting Verified 11/25/24 06:27 General Stated Complaint: Abd Prob JOSELIN: 3 Exam Narrative Exam Narrative: 1.Const: Well-nourished, Well-developed, appearing stated age 2.Eyes: PERRL, no conjunctival injection, and symmetrical lids. 3.ENT: Atraumatic external nose and ears. Moist MM. Neck: Symmetric, trachea midline, No thyromegaly. 4.CVS: +S1/S2, Peripheral pulses 2+ and equal in all extremities. Brisk capillary refill in all extremities. 5.RESP: Unlabored respiratory effort. Clear to auscultation bilaterally. No wheezes rales or rhonchi 6.GI: Soft, nondistended, mild left-sided abdominal tenderness on palpation, also right lower quadrant tenderness on palpation. 7.MSK: Normocephalic/Atraumatic, Extremities w/o deformity or ttp No cyanosis or clubbing, Normal movement of all extremities 8.Skin: Warm, Dry. No rashes or lesions. 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 Sensation grossly intact, no focal neurologic deficits. 10.Psych: (AAO) x3. Appropriate mood and affect Course Vital Signs Vital signs: Vital Signs Pulse 72 11/25/24 06:23 Respiratory Rate 18 11/25/24 06:23 Blood Pressure 143/83 H 11/25/24 06:23 Pulse Oximetry 97 11/25/24 06:23 Temperature 36.2 C L 11/25/24 06:57 Temperature Source Tympanic 11/25/24 06:57 Pulse 72 11/25/24 06:23 Respiratory Rate 18 11/25/24 06:23 Blood Pressure 143/83 H 11/25/24 06:23 Blood Pressure Position Sitting 11/25/24 06:23 Pulse Oximetry 97 11/25/24 06:23 Oxygen Delivery Method Room Air 11/25/24 06:23 Oxygen Flow Rate 0 11/25/24 06:23 Pain Level 7 11/25/24 07:06 Lab/Test Results Lab/Test Results: Laboratory Tests Range/Units 11/25/24 06:33 WBC (4.4-10.8) 10^3/uL 5.71 RBC (3.93-5.22) 10^6/uL 4.74 Hgb (11.2-15.7) g/dL 14.1 Hct (36.0-46.0) % 41.0 MCV (80-95) fL 87 MCH (27.0-33.0) pg 29.7 MCHC (32.0-36.0) % 34.4 RDW (11.7-14.6) % 11.9 Plt Count (130-400) 10^3/uL 260 MPV (8.0-11.0) fL 9.4 Immature Gran % % 0.2 Neutrophils % % 50.5 Lymphocytes % % 33.8 Monocytes % % 10.2 Eosinophils % % 4.6 Basophils % % 0.7 Nucleated RBC % (0.0-0.3) % 0.0 Absolute Neutrophils (1.2-6.7) 10^3/uL 2.89 Absolute Lymphocytes (1.2-3.4) 10^3/uL 1.93 Absolute Monocytes (0.1-0.8) 10^3/uL 0.58 Absolute Eosinophils (0.0-0.7) 10^3/uL 0.26 Absolute Basophils (0.0-0.2) 10^3/uL 0.04 Medical Decision Making 29-year-old female with a past medical history of suspected endometriosis, polycystic ovarian syndrome, history of renal reflux as a child, ovarian cyst, previous kidney stone, presents today with sudden onset left-sided flank and abdominal pain that started at 1 AM. It is sharp in nature, radiates from the left flank to the left lower quadrant. She admits to nausea but no vomiting. She denies any urinary changes or complaints. No dysuria or hematuria. She denies any fever or chills. No other complaints at this time. She denies any vaginal discharge. She is on time for her current menstrual cycle. Exam demonstrates mild left lower quadrant tenderness but also mild right lower quadrant tenderness as well. Mild left-sided abdominal/CVA tenderness to. Negative Valenzuela sign. Differential at this time is broad but includes endometriosis, diverticulitis, ovarian cyst. Kidney stone is also out of concern. Patient is actively trying to get . We we will get laboratory workup treat with NSAIDs, check a UA before deciding needed imaging. Ideally if urinalysis shows notable blood this may be indicative of a kidney stone which would then further necessitate ultrasound. If urine is negative CT may be indicated. PFSH All Active Problems (Updated 11/25/24 @ 08:01 by Terrence Jimenez DO) Left lateral abdominal pain (Acute) COVID (Acute) Cough (Acute) Chest pain (Acute) Pneumonia (Acute) Allergies (Acute) Pyelonephritis (Acute) Chest pain (Acute) Pharyngitis (Acute) Epigastric abdominal pain (Acute) Viral syndrome (Acute) Migraine with aura and without status migrainosus (Acute) Severe concussion (Acute 02/22/17) Psoriasis (Acute 09/13/17) Moderately severe depression (Acute 02/22/17) Anxiety and depression (Acute 07/24/17) Medical History Congenital ydrpli-uitkuir-owbzd reflux Family History Mother Depression Hyperlipidemia Father Depression Brother Asthma ADHD Maternal Grandfather Heart disease Maternal Grandmother Heart disease Brother Autism Paternal Grandfather No problems noted. Paternal Grandmother Glaucoma Social History Smoking/Tobacco Use Status: Never Smoking risk assessment performed?: Yes Alcohol Intake: current Alcohol Intake frequency: holidays/special occasions only Alcohol type: beer and hard liquor Drug use: Never Substance use type: does not use Caregiver/Support person: No Household members: spouse and significant other Housing: house Communication Needs: None current occupation: [employer] Pets and animals: Yes Pets and animals: cat(s) and dog(s) Sexually active: Yes Do you think of yourself as: straight/heterosexual Current gender identity: female What is your relationship status?: living with partner How often do you talk on the phone with friends or family?: three or more times per week How often do you get together with friends or relatives?: three or more times per week How often do you attend protestant or jew services?: decline to answer Do you belong to any clubs or organized social groups?: yes Panel score (0-1 are the most socially isolated patients): 3 What type of physical activity do you participate in: walking Duration: 15-30 minutes/day Frequency: 1-2 times per week Kendal/Evangelical: Anabaptist Special kendal needs: No Seatbelt use: always Helmet use: Yes Helmet use: always Drive intox or ride w/intox driver's education instructor: No Do you feel safe at home: Yes Do you feel safe in your relationship?: Yes
[2024-11-25 08:02] LABS: Glucose Negative (Negative)
[2024-11-25 08:09] LABS: C & S Indicated? No; RBC Negative HPF (0-2); WBC 0-2 HPF (0-5)
--- NOTE | 2024-11-25 08:26 | W.EDPROG ---
Date of service: 11/25/24 Time of Service: 08:27 Medical Decision Making Patient signed out to me pending UA. CBC and CMP as well as UA are all unremarkable. Patient is feeling significantly better states her pain is resolved. She has had numerous prior imaging studies, discussed with her that with her normal labs that the CT is obtained would likely be negative and after discussion she does not want to proceed with a CAT scan which I feel is reasonable. She will follow-up with her PCP if not improving and return precautions given Discharge Plan Disposition Patient Disposition: Home Condition: Stable Discharge Details Clinical Impression: Left lateral abdominal pain Primary Care Provider: Chayo Howard ED Provider: Konstantin Deshpande Home Meds and New Rx's Prescriptions: New ondansetron 4 mg tablet,disintegrating 4 mg PO Q8H PRN (Reason: nausea and vomiting) Qty: 30 0RF Continued epinephrine [EpiPen 2-Steve] 0.3 mg/0.3 mL auto-injector 0.3 mg IM ONCE PRN (Reason: anaphylaxis) Qty: 2 0RF Rx Instructions: inject into anterolateral area of thigh (preferred) omeprazole magnesium [Prilosec OTC] 20 mg tablet,delayed release (DR/EC) 20 mg PO DAILY Qty: 90 3RF garlic 1 EACH tablet 1 tab PO DAILY sertraline 50 mg tablet 50 mg PO DAILY ondansetron 4 mg tablet,disintegrating 4 mg PO Q8H PRNQty: 10 0RF Discontinued benzonatate 100 mg capsule 100 mg PO TID PRNQty: 20 0RF Discharge Instructions Additional Instructions: Your blood work did not show any concerning findings and your urine did not show signs of infection. There was no blood in your urine. If you have recurring symptoms follow-up with your primary care provider. If you feel more ill, have severe worsening pain or new symptoms such as high fevers return to the emergency department for reevaluation.
[2024-11-25 08:45] VITALS: BP 132/86; PULSE 69; RESP 17; TEMP 36.5; O2SAT 100
== END 2024-11-25 08:53 | disposition home or self-care (01) ==
PROVIDERS: Student in an Organized Health Care Education/Training Program; Emergency Provider Emergency Medicine; PCP Nurse Practitioner Family
DX: R10.12 Left upper quadrant pain (principal)
CPT/HCPCS: 00123; 80053; 96361; 96374; 99284; 81003; 81015; 83735; 85025; 99283; J0131; J1885

== ENCOUNTER 2024-12-04 15:25 | Outpatient (REF) | payer BC, SELFPAY ==
--- NOTE | 2024-12-04 15:00 | PAPFT_PTH ---
PATIENT: Janette Duncan LOC: [facility] U#:[id number] AGE/SX: 29/F ROOM: RE12/04/[address]: Marnie Deshpande NP : 1995 BED: DIS: 12/04/2024 SPEC #: [id number] RECD: 12/04/24 17:48 STATUS: ALICE REStephen #: [id number] HORACE: 12/04/24 15:[address]: Marnie Deshpande NP DEPT: [facility] Cytology RECD BY: Lety Sanchez ENTERED: 12/04/24 17:48 SP TYPE: PAPFT OTHR DR: Chayo Howard Tissues: 1 - CX/ENDOCX FOR PAP SMEARS Procedures: PAP THIN PREP/UVM Screening HPV DNA PROBE Comments: [id number] (HPV 16 & 18/45)
== END 2024-12-04 15:26 | disposition home or self-care (01) ==
LOC: LBN 15:25
PROVIDERS: PCP Nurse Practitioner Family; Visit Provider Nurse Practitioner Women's Health
DX: Z12.4 Encounter for screening for malignant neoplasm of cervix (principal)
CPT/HCPCS: 88142; 87624

== ENCOUNTER 2024-12-16 05:55 | Emergency (ER) | payer BC, SELFPAY ==
[2024-12-16 05:58] VITALS: BP 135/93; PULSE 69; RESP 16; TEMP 36.8; O2SAT 97
--- NOTE | 2024-12-16 06:22 | W.ED.GENAD ---
Discharge Plan Discharge Details Chief Complaint: FlankPain Clinical Impression: Acute flank pain Primary Care Provider: Chayo Howard ED Provider: Pat Estrada Home Meds and New Rx's Prescriptions: No Action epinephrine [EpiPen 2-Steve] 0.3 mg/0.3 mL auto-injector 0.3 mg IM ONCE PRN (Reason: anaphylaxis) Qty: 2 0RF Rx Instructions: inject into anterolateral area of thigh (preferred) spironolactone 50 mg tablet 50 mg PO BID Qty: 180 3RF omeprazole magnesium [Prilosec OTC] 20 mg tablet,delayed release (DR/EC) 20 mg PO DAILY Qty: 90 3RF Mounjaro 2.5 mg/0.5 mL pen injector 2.5 mg subcut QWEEK Rx Instructions: for 4 weeks valacyclovir 1 gram tablet 1,000 mg PO BID cholecalciferol (vitamin D3) 10 mcg (400 unit) capsule 10 mcg PO DAILY garlic 1 EACH tablet 1 tab PO DAILY sertraline 50 mg tablet 50 mg PO DAILY ondansetron 4 mg tablet,disintegrating 4 mg PO Q8H PRNQty: 10 0RF ondansetron 4 mg tablet,disintegrating 4 mg PO Q8H PRN (Reason: nausea and vomiting) Qty: 30 0RF HPI General Mode of arrival: ambulatory. Date/Time Provider Initiated Documentation: 12/16/24 05:56. Limitations to Documentation: no limitations. Information obtained by: patient. HPI Narrative: 29yo F with hx renal reflux as a child, known ovarian cyst, PCOS, prior kidney stone, presenting with left flank pain. Pain started yesterday, sharp, low left flank pain radiating upwards. Feels like her prior kidney stone. Some assoicated nausea, no vommiting. No dysuria or hematuria. No abdominal pain or vaginal discharge. No fevers, chills, or rash. Otherwise in her usual state of health. Related Data Home Medications ?Medication ?Instructions ?Recorded ?Confirmed garlic 1 tab PO DAILY 02/14/17 12/16/24 epinephrine 0.3 mg/0.3 mL 0.3 mg (0.3 mL) IM ONCE PRN 04/11/18 12/16/24 injection, auto-injector (EpiPen anaphylaxis #2 ea 2-Steve) omeprazole magnesium 20 mg 20 mg PO DAILY #90 tabs 06/18/20 12/16/24 tablet,delayed release (Prilosec OTC) sertraline 50 mg tablet 50 mg PO DAILY 12/05/23 12/16/24 ondansetron 4 mg disintegrating 4 mg PO Q8H PRN #10 tabs 09/13/24 12/16/24 tablet ondansetron 4 mg disintegrating 4 mg PO Q8H PRN nausea and 11/25/24 12/16/24 tablet vomiting #30 tabs cholecalciferol (vitamin D3) 10 10 mcg PO DAILY 12/04/24 12/16/24 mcg (400 unit) capsule spironolactone 50 mg tablet 50 mg PO BID #180 tabs 12/04/24 12/16/24 tirzepatide 2.5 mg/0.5 mL 2.5 mg subcut QWEEK 12/04/24 12/16/24 subcutaneous pen injector (El) valacyclovir 1 gram tablet 1,000 mg PO BID 12/04/24 12/16/24 Previous Rx's ?Medication ?Instructions ?Recorded epinephrine 0.3 mg/0.3 mL 0.3 mg (0.3 mL) IM ONCE PRN 04/11/18 injection, auto-injector (EpiPen anaphylaxis #2 ea 2-Steve) omeprazole magnesium 20 mg 20 mg PO DAILY #90 tabs 06/18/20 tablet,delayed release (Prilosec OTC) ondansetron 4 mg disintegrating 4 mg PO Q8H PRN #10 tabs 09/13/24 tablet ondansetron 4 mg disintegrating 4 mg PO Q8H PRN nausea and 11/25/24 tablet vomiting #30 tabs spironolactone 50 mg tablet 50 mg PO BID #180 tabs 12/04/24 Allergies Allergy/AdvReac Type Severity Reaction Status Date / Time codeine Allergy Severe Hives Verified 12/16/24 06:01 kiwi Allergy Intermediate Swelling/Ed Verified 12/16/24 06:01 john ciprofloxacin (From Cipro) AdvReac Intermediate vomiting Verified 12/16/24 06:01 General Stated Complaint: FlankPain JOSELIN: 3 Review of Systems Narrative: see HPI Exam Narrative Exam Narrative: General: Alert, well appearing, well nourished, in no acute distress. Head: Normocephalic, atraumatic Neck: Trachea midline, ?Neck supple. Cardiac: ?RRR, no murmurs appreciated Resp: No respiratory distress. CTAB. Abd: ?Soft, non-distended, nontender : ?No suprapubic tenderness. Slight CVA tenderness. on left. Extremities: ?No deformities.? No peripheral edema. Neurologic: GCS 15. ? Moves all extremities freely against gravity Course Vital Signs Vital signs: Vital Signs Temperature 36.8 C 12/16/24 05:58 Pulse 69 12/16/24 05:58 Respiratory Rate 16 12/16/24 05:58 Blood Pressure 135/93 H 12/16/24 05:58 Pulse Oximetry 97 12/16/24 05:58 Temperature 36.8 C 12/16/24 05:58 Temperature Source Oral 12/16/24 05:58 Pulse 69 12/16/24 05:58 Respiratory Rate 16 12/16/24 05:58 Blood Pressure 135/93 H 12/16/24 05:58 Blood Pressure Position Sitting 12/16/24 05:58 Pulse Oximetry 97 12/16/24 05:58 Oxygen Delivery Method Room Air 12/16/24 05:58 Oxygen Flow Rate 0 12/16/24 05:58 Medical Decision Making 29yo F with hx renal reflux as a child, known ovarian cyst, PCOS, prior kidney stone, presenting with left flank pain. Pain started yesterday, sharp, low left flank pain radiating upwards, associated nausea. Feels like her prior kidney stone. Vital signs reassuring on arrival, exam with mild left CVA tenderness. No abdominal tenderness on exam. Broad differential including but not limited to nephrolithiasis, pyeleonephritis, msk etiology. No significant risk factors for renal infarct/thrombosis. Less likely ovarian/pelvic pathology given no lower abdominal or pelvic pain. Abdominal exam reassuring against surgical intrabdominal process. Will treat pain with tylenol, toradol while awaiting results of workup. IVFB to facilitate urine. Discussed possible imaging; patient would prefer to avoid CT scan if possible. Appropriate to forgo CT given she has no abdominal tenderness. Will get renal US to eval. Labs reviewed as below, CBC reassuring with no leukocytosis or anemia, CMP with no actionable abnormalities and normal Cr. Will be signed out to oncoming physican, plan to FU urine and ultrasound and reassess for pain control. Lab Data Lab results reviewed: Yes I reviewed the patient's lab results. Labs: Laboratory Tests Range/Units 12/16/24 06:05 WBC (4.4-10.8) 10^3/uL 5.59 RBC (3.93-5.22) 10^6/uL 4.66 Hgb (11.2-15.7) g/dL 13.7 Hct (36.0-46.0) % 40.4 MCV (80-95) fL 87 MCH (27.0-33.0) pg 29.4 MCHC (32.0-36.0) % 33.9 RDW (11.7-14.6) % 12.0 Plt Count (130-400) 10^3/uL 251 MPV (8.0-11.0) fL 9.5 Immature Gran % % 0.4 Neutrophils % % 44.1 Lymphocytes % % 43.1 Monocytes % % 8.4 Eosinophils % % 2.9 Basophils % % 1.1 Nucleated RBC % (0.0-0.3) % 0.0 Absolute Neutrophils (1.2-6.7) 10^3/uL 2.47 Absolute Lymphocytes (1.2-3.4) 10^3/uL 2.41 Absolute Monocytes (0.1-0.8) 10^3/uL 0.47 Absolute Eosinophils (0.0-0.7) 10^3/uL 0.16 Absolute Basophils (0.0-0.2) 10^3/uL 0.06 Sodium (136-145) mmol/L 140 Potassium (3.5-5.1) mmol/L 3.6 Chloride (98-107) mmol/L 103 Carbon Dioxide (21.0-32.0) mmol/L 27.3 Anion Gap (3-11) mmol/L 9.7 BUN (7-18) mg/dL 18 Creatinine (0.55-1.02) mg/dL 1.0 Est GFR (CKD-EPI 2020) (mL/min/1.73m2) 77.24 Glucose (74-106) mg/dL 95 Calcium (8.5-10.1) mg/dL 8.3 L Total Bilirubin (0.2-1.0) mg/dL 0.6 AST (15-37) U/L 16 ALT (14-59) U/L 24 Alkaline Phosphatase (46-116) U/L 63 Total Protein (6.4-8.2) g/dL 7.1 Albumin (3.4-5.0) g/dL 3.6 PFSH All Active Problems (Updated 12/16/24 @ 06:56 by Pat Estrada MD) Acute flank pain (Acute) Left lateral abdominal pain (Acute) COVID (Acute) Cough (Acute) Chest pain (Acute) Pneumonia (Acute) Allergies (Acute) Pyelonephritis (Acute) Chest pain (Acute) Pharyngitis (Acute) Epigastric abdominal pain (Acute) Viral syndrome (Acute) Migraine with aura and without status migrainosus (Acute) Severe concussion (Acute 02/22/17) Psoriasis (Acute 09/13/17) Moderately severe depression (Acute 02/22/17) Anxiety and depression (Acute 07/24/17) Medical History Congenital kdgbox-miqhffm-vohuq reflux Family History Mother Depression Hyperlipidemia Father Depression Brother Asthma ADHD Maternal Grandfather Heart disease Maternal Grandmother Heart disease Brother Autism Paternal Grandfather No problems noted. Paternal Grandmother Glaucoma Social History Smoking/Tobacco Use Status: Never Smoking risk assessment performed?: Yes Alcohol Intake: current Alcohol Intake frequency: holidays/special occasions only Alcohol type: beer and hard liquor Drug use: Never Substance use type: does not use Caregiver/Support person: No Household members: spouse and significant other Housing: house Communication Needs: None current occupation: [id number] Pets and animals: Yes Pets and animals: cat(s) and dog(s) Sexually active: Yes Do you think of yourself as: straight/heterosexual Current gender identity: female What is your relationship status?: living with partner How often do you talk on the phone with friends or family?: three or more times per week How often do you get together with friends or relatives?: three or more times per week How often do you attend taoism or mormon services?: decline to answer Do you belong to any clubs or organized social groups?: yes Panel score (0-1 are the most socially isolated patients): 3 What type of physical activity do you participate in: walking Duration: 15-30 minutes/day Frequency: 1-2 times per week Kendal/Temple: [employer] Special kendal needs: No Seatbelt use: always Helmet use: Yes Helmet use: always Drive intox or ride w/intox transit mixer driver: No Do you feel safe at home: Yes Do you feel safe in your relationship?: Yes Female Reproductive History Menstrual control method: none
[2024-12-16] MEDS: Ketorolac 15 MG/ML VIAL IVP (06:27)
[2024-12-16] MEDS: ACETAMINOPHEN 1,000 MG/100 ML BAG 400 MG IVPB (06:27)
[2024-12-16 06:45] LABS: Abs Immature Grans 0.02 10^3/uL (0.0-0.06); HCT 40.4 % (36.0-46.0); HGB 13.7 g/dL (11.2-15.7); Immature Grans % 0.4 %; MCH 29.4 pg (27.0-33.0); MCHC 33.9 % (32.0-36.0); MCV 87 fL (80-95); MPV 9.5 fL (8.0-11.0); Platelet Count 251 10^3/uL (130-400); RBC 4.66 10^6/uL (3.93-5.22); RDW 12.0 % (11.7-14.6); RDW-SD 38.3 fL; WBC 5.59 10^3/uL (4.4-10.8)
--- NOTE | 2024-12-16 06:45 | DI.US_ITS ---
Exam(s) US RENAL EXAM: US RENAL CLINICAL HISTORY: left flank pain, hx kidney stone, hx renal reflux TECHNIQUE: Ultrasound of both kidneys performed using standard protocol. COMPARISON: CT CT ABDOMEN PELVIS W from 08/26/2024 of 08/26/2024 was reviewed FINDINGS: RIGHT KIDNEY: Measures 9.9 cm in length. No cysts evident. Normal cortical thickness and corticomedullary differentiation .No solid masses No intrarenal calculi nor hydronephrosis. LEFT KIDNEY: Measures 10.5 cm in length. No cysts evident. Normal cortical thickness and corticomedullary differentiaion. No solids masses. No intrarenal calculi nor hydonephrosis. URINARY BLADDER: Prevoid volume is 252 cc Postvoid volume is 10 cc No evidence of bladder mass nor diverticuli. Ureterovesical jets: Right ureterovesical jet was seen. The left UV jet was not seen. IMPRESSION: 1. No significant focal ultrasound findings in the kidneys. No nephrolithiasis evident. No hydronephrosis. 2. Other findings as above. DATA REPOSITORY:
[2024-12-16 06:58] LABS: ALT 24 U/L (14-59); AST 16 U/L (15-37); Albumin 3.6 g/dL (3.4-5.0); Alkaline Phosphatase 63 U/L (46-116); Anion Gap 9.7 mmol/L (3-11); BUN 18 mg/dL (7-18); Bilirubin, Total 0.6 mg/dL (0.2-1.0); CO2 27.3 mmol/L (21.0-32.0); Calcium 8.3 mg/dL (8.5-10.1); Chloride 103 mmol/L (98-107); Estimated GFR 77.24 (mL/min/1.73m2); Glucose 95 mg/dL (74-106); Potassium 3.6 mmol/L (3.5-5.1); Sodium 140 mmol/L (136-145); Total Protein 7.1 g/dL (6.4-8.2)
[2024-12-16] MEDS: Normal Saline 1,000 ML 1000 ML IV (07:03)
[2024-12-16 07:05] VITALS: BP 136/87; PULSE 64; RESP 16; O2SAT 98
[2024-12-16 08:25] VITALS: BP 130/64; PULSE 56; RESP 16; O2SAT 99
[2024-12-16 08:27] LABS: Glucose Negative (Negative)
[2024-12-16 08:32] LABS: RBC 0-2 HPF (0-2)
[2024-12-16 08:33] LABS: C & S Indicated? No
--- NOTE | 2024-12-16 09:59 | W.EDPROG ---
Date of service: 12/16/24 Time of Service: 09:59 Medical Decision Making Patient's labs unremarkable, ultrasound also shows no significant findings other than there is no left uretervesical jet seen. Patient is stable and feels better. States pain is mild. I suspect she likely has a small kidney stone given she has had these in the past and had one on CT a few months ago. She has no findings to suggest infected stone. She will follow-up with urology and return precautions given Discharge Plan Disposition Patient Disposition: Home Condition: Stable Discharge Details Clinical Impression: Acute flank pain Primary Care Provider: Chayo Howrad ED Provider: Konstantin Deshpande Home Meds and New Rx's Prescriptions: New tamsulosin [Flomax] 0.4 mg capsule 0.4 mg PO DAILY Qty: 14 0RF ketorolac 10 mg tablet 10 mg PO Q8H PRNQty: 15 0RF Rx Instructions: maximum total duration of 5 days from all oral, intranasal, or parenteral formulations Continued epinephrine [EpiPen 2-Steve] 0.3 mg/0.3 mL auto-injector 0.3 mg IM ONCE PRN (Reason: anaphylaxis) Qty: 2 0RF Rx Instructions: inject into anterolateral area of thigh (preferred) spironolactone 50 mg tablet 50 mg PO BID Qty: 180 3RF omeprazole magnesium [Prilosec OTC] 20 mg tablet,delayed release (DR/EC) 20 mg PO DAILY Qty: 90 3RF Mounjaro 2.5 mg/0.5 mL pen injector 2.5 mg subcut QWEEK Rx Instructions: for 4 weeks valacyclovir 1 gram tablet 1,000 mg PO BID cholecalciferol (vitamin D3) 10 mcg (400 unit) capsule 10 mcg PO DAILY garlic 1 EACH tablet 1 tab PO DAILY sertraline 50 mg tablet 50 mg PO DAILY ondansetron 4 mg tablet,disintegrating 4 mg PO Q8H PRNQty: 10 0RF ondansetron 4 mg tablet,disintegrating 4 mg PO Q8H PRN (Reason: nausea and vomiting) Qty: 30 0RF Discharge Instructions Additional Instructions: Your labs and ultrasound did not show any significant findings. I suspect you likely do have a small kidney stone that you are passing. I placed on our follow-up list to try to get established with urology. If you feel more ill or have new symptoms such as high fevers return to emergency department for reevaluation.
[2024-12-16 10:25] VITALS: BP 135/80; PULSE 60; RESP 16; O2SAT 99
== END 2024-12-16 10:25 | disposition home or self-care (01) ==
PROVIDERS: Student in an Organized Health Care Education/Training Program; Emergency Provider Emergency Medicine; PCP Nurse Practitioner Family
DX: R10.32 Left lower quadrant pain (principal); R11.0 Nausea; Z87.442 Personal history of urinary calculi
CPT/HCPCS: 00123; 76770; 80053; 96361; 96365; 96375; 99284; 81003; 81015; 85025; J0131; J1885

== ENCOUNTER 2024-12-30 15:12 | Emergency (ER) | payer BC, SELFPAY ==
[2024-12-30 15:14] VITALS: BP 145/99; PULSE 109; RESP 18; TEMP 37; O2SAT 98
[2024-12-30 15:19] VITALS: BP 145/99; PULSE 109; RESP 18; TEMP 36.8
--- NOTE | 2024-12-30 15:25 | W.ED.GENAD ---
Discharge Plan Disposition Patient Disposition: Against Medical Advice Discharge Details Clinical Impression: Nausea & vomiting, Fever, Abdominal pain, Pyelonephritis Primary Care Provider: Chayo Howard ED Provider: Tay Hernandez Home Meds and New Rx's Prescriptions: New acetaminophen [Tylenol] 325 mg tablet 975 mg PO ONCE PRNQty: 60 0RF ibuprofen 600 mg tablet 600 mg PO Q6H PRNQty: 30 0RF ondansetron 4 mg tablet,disintegrating 4 mg PO Q6H PRNQty: 20 0RF cefdinir 300 mg capsule 300 mg PO BID Qty: 14 0RF Continued epinephrine [EpiPen 2-Steve] 0.3 mg/0.3 mL auto-injector 0.3 mg IM ONCE PRN (Reason: anaphylaxis) Qty: 2 0RF Rx Instructions: inject into anterolateral area of thigh (preferred) spironolactone 50 mg tablet 50 mg PO BID Qty: 180 3RF omeprazole magnesium [Prilosec OTC] 20 mg tablet,delayed release (DR/EC) 20 mg PO DAILY Qty: 90 3RF Mounjaro 2.5 mg/0.5 mL pen injector 2.5 mg subcut QWEEK Rx Instructions: for 4 weeks valacyclovir 1 gram tablet 1,000 mg PO BID cholecalciferol (vitamin D3) 10 mcg (400 unit) capsule 10 mcg PO DAILY garlic 1 EACH tablet 1 tab PO DAILY sertraline 50 mg tablet 50 mg PO DAILY ondansetron 4 mg tablet,disintegrating 4 mg PO Q8H PRNQty: 10 0RF ondansetron 4 mg tablet,disintegrating 4 mg PO Q8H PRN (Reason: nausea and vomiting) Qty: 30 0RF tamsulosin [Flomax] 0.4 mg capsule 0.4 mg PO DAILY Qty: 14 0RF ketorolac 10 mg tablet 10 mg PO Q8H PRNQty: 15 0RF Rx Instructions: maximum total duration of 5 days from all oral, intranasal, or parenteral formulations Discharge Instructions Instructions: Nausea and vomiting in adults Additional Instructions: As discussed you are leaving AGAINST MEDICAL ADVICE. I am concerned that you may be experiencing an infection that would not be treatable with outpatient antibiotics, that could worsen, and resulting in serious illness, permanent disability or . Please take the prescribed medications as directed and please finish the antibiotics in its entirety. Please follow-up with your primary care provider regarding your visit to the emergency department today. Be sure to discuss results of all test performed here today to include radiology, and laboratory testing as well as results for any pending cultures. Should your symptoms worsen, or if you develop new concerning symptoms, please return immediately emergency department for further evaluation. HPI General Date/Time Provider Initiated Documentation: 12/30/24 15:24. HPI Narrative: MDM/Narrative: Initial Assessment: 29-year-old female with nausea, vomiting, diarrhea, dizziness, bilateral kidney pain, and body pain. Symptoms started on 12/28/2024 with a fever of 102?F. History of kidney reflux and currently taking Zepbound for PCOS. Differential Diagnosis: - Urosepsis: High concern due to fever and bilateral CVA tenderness. Plan: urinalysis, CBC, lactate, empiric antibiotics. - Perinephric abscess: Consider if renal function intact; plan: CT imaging. - Intrarenal abscess: Consider if renal function intact; plan: CT imaging. ED Course: - Droperidol for nausea. - IV Tylenol and Toradol for pain. - Lab work: urinalysis, CBC, lactate. 174 I was called to bedside by the patient's nurse as the patient is requesting to leave AGAINST MEDICAL ADVICE. Plan of care and results were discussed and shared with the patient. She is aware that she has an elevated leukocytosis and evidence of possible urinary tract infection. Given her reported history of urinary reflux, and also a follow-up history which she does endorse of a recent diagnosis of left ureteral kidney stone I highly advised the patient that she should stay as she could be experiencing an infection that is unlikely to resolve with outpatient antibiotics that could result in grave disability or . Patient again has refused any further workup including a CAT scan and request to leave AMA. Disposition: Left AGAINST MEDICAL ADVICE This document was created with assistance from [employer] The patient consented to its use. HPI: The patient is a 29-year-old female with a medical history significant for polycystic ovary syndrome (PCOS) and bilateral vesicoureteral reflux, presenting with symptoms of nausea, vomiting, diarrhea, dizziness, renal pain, and generalized body pain. The onset of symptoms was noted on December 28, 2024, beginning with nausea and pyrexia, with a recorded temperature of 102?F. Mild bilateral renal pain commenced on the same date, initially subsiding but subsequently recurring on December 29, 2024, and has persisted since. The pain is described as bilateral, severe, uncomfortable, exacerbated by pressure, and radiating through the body. No [id number] medications have been administered today. The patient has a history of bilateral vesicoureteral reflux managed with Deflux procedures. She reports no history of urinary tract infections, ureteral stents, or nephrostomy tubes. She needs to schedule an appointment with a urologist, as her previous armored vehicle officer, Dr. Sergey Bolanos, has relocated. The patient initiated Zepbound injections for PCOS management on December 28, 2024. She suspects that her current symptoms may be attributable to the increased dosage and is contemplating transitioning to a pump for medication administration. She expresses concern regarding potential severe renal damage secondary to the medication and the risk of dehydration. PAST SURGICAL HISTORY: Deflux procedures for bilateral vesicoureteral reflux. ROS: Negative besides as mentioned above Exam: Vital signs: Reviewed. General Appearance: Alert and oriented. No acute distress. HEENT: NCAT, EOMI, not icteric. External ears normal. No rhinorrhea. Moist mucous membranes. Neck: Supple, full range of motion, no observable masses, No meningeal sign. Respiratory: No Respiratory distress. No tachypnea. Cardiovascular: RRR, no edema. Gastrointestinal: No significant abdominal tenderness. Back: No midline tenderness to palpation or palpable step-offs of the C/T/L spine. Skin: Warm and dry, no rash. Neurological: Normal Gait, Grossly intact. Psychiatric: Appropriate for situation. Labs: Laboratory Tests Range/Units 12/30/24 12/30/24 12/30/24 15:42 16:08 16:55 WBC (4.4-10.8) 10^3/uL 11.15 H RBC (3.93-5.22) 10^6/uL 5.40 H Hgb (11.2-15.7) g/dL 15.9 H Hct (36.0-46.0) % 46.1 H MCV (80-95) fL 85 MCH (27.0-33.0) pg 29.4 MCHC (32.0-36.0) % 34.5 RDW (11.7-14.6) % 11.8 Plt Count (130-400) 10^3/uL 292 MPV (8.0-11.0) fL 9.3 Immature Gran % % 0.2 Neutrophils % % 78.2 Lymphocytes % % 14.9 Monocytes % % 5.8 Eosinophils % % 0.5 Basophils % % 0.4 Nucleated RBC % (0.0-0.3) % 0.0 Absolute Neutrophils (1.2-6.7) 10^3/uL 8.72 H Absolute Lymphocytes (1.2-3.4) 10^3/uL 1.66 Absolute Monocytes (0.1-0.8) 10^3/uL 0.65 Absolute Eosinophils (0.0-0.7) 10^3/uL 0.06 Absolute Basophils (0.0-0.2) 10^3/uL 0.04 VBG Lactate (<or=2.0) mmol/L 0.8 Sodium (136-145) mmol/L 138 Potassium (3.5-5.1) mmol/L 3.9 Chloride (98-107) mmol/L 99 Carbon Dioxide (21.0-32.0) mmol/L 27.4 Anion Gap (3-11) mmol/L 11.6 H BUN (7-18) mg/dL 15 Creatinine (0.55-1.02) mg/dL 1.2 H Est GFR (CKD-EPI 2020) (mL/min/1.73m2) 62.06 Glucose (74-106) mg/dL 87 Calcium (8.5-10.1) mg/dL 9.8 Total Bilirubin (0.2-1.0) mg/dL 0.6 AST (15-37) U/L 18 ALT (14-59) U/L 32 Alkaline Phosphatase (46-116) U/L 79 Total Protein (6.4-8.2) g/dL 8.7 H Albumin (3.4-5.0) g/dL 4.7 Lipase (<78) U/L 33 Urine Color (Yellow) Yellow Urine Clarity (Clear) Clear Urine pH (5-8) 5.5 Ur Specific Artie (1.005-1.025) 1.020 Urine Protein (Neg-Trace) mg/dL Negative Urine Ketones (Negative) mg/dL 40 H Urine Blood (Negative) Large H Urine Nitrite (Negative) Negative Urine Bilirubin (Negative) Negative Urine Urobilinogen (Up to 0.2) mg/dL 0.2 Ur Leukocyte Esterase (Negative) Small H Urine RBC (0-2) HPF 0-2 Urine WBC (0-5) HPF 0-2 Ur Epithelial Cells (Negative) HPF Moderate Urine Crystals (Negative) HPF Negative Urine Bacteria (Negative) HPF Negative Urine Casts (Negative) LPF Negative Urine Mucus (Negative) Negative Ur Culture Indicated? No/Sq. Contamination Urine Glucose (Negative) mg/dL Negative Urine HCG, Qual Negative Related Data Home Medications ?Medication ?Instructions ?Recorded ?Confirmed garlic 1 tab PO DAILY 02/14/17 12/30/24 epinephrine 0.3 mg/0.3 mL 0.3 mg (0.3 mL) IM ONCE PRN 04/11/18 12/30/24 injection, auto-injector (EpiPen anaphylaxis #2 ea 2-Steve) omeprazole magnesium 20 mg 20 mg PO DAILY #90 tabs 06/18/20 12/30/24 tablet,delayed release (Prilosec OTC) sertraline 50 mg tablet 50 mg PO DAILY 12/05/23 12/30/24 ondansetron 4 mg disintegrating 4 mg PO Q8H PRN #10 tabs 09/13/24 12/30/24 tablet ondansetron 4 mg disintegrating 4 mg PO Q8H PRN nausea and 11/25/24 12/30/24 tablet vomiting #30 tabs cholecalciferol (vitamin D3) 10 10 mcg PO DAILY 12/04/24 12/30/24 mcg (400 unit) capsule spironolactone 50 mg tablet 50 mg PO BID #180 tabs 12/04/24 12/30/24 tirzepatide 2.5 mg/0.5 mL 2.5 mg subcut QWEEK 12/04/24 12/30/24 subcutaneous pen injector (El) valacyclovir 1 gram tablet 1,000 mg PO BID 12/04/24 12/30/24 ketorolac 10 mg tablet 10 mg PO Q8H PRN #15 tabs 12/16/24 12/30/24 tamsulosin 0.4 mg capsule (Flomax) 0.4 mg PO DAILY #14 caps 12/16/24 12/30/24 acetaminophen 325 mg tablet 975 mg (3 x 325 mg) PO ONCE PRN 12/30/24 (Tylenol) #60 tabs cefdinir 300 mg capsule 300 mg PO BID #14 caps 12/30/24 ibuprofen 600 mg tablet 600 mg PO Q6H PRN #30 tabs 12/30/24 ondansetron 4 mg disintegrating 4 mg PO Q6H PRN #20 tabs 12/30/24 tablet Previous Rx's ?Medication ?Instructions ?Recorded epinephrine 0.3 mg/0.3 mL 0.3 mg (0.3 mL) IM ONCE PRN 04/11/18 injection, auto-injector (EpiPen anaphylaxis #2 ea 2-Steve) omeprazole magnesium 20 mg 20 mg PO DAILY #90 tabs 06/18/20 tablet,delayed release (Prilosec OTC) ondansetron 4 mg disintegrating 4 mg PO Q8H PRN #10 tabs 09/13/24 tablet ondansetron 4 mg disintegrating 4 mg PO Q8H PRN nausea and 11/25/24 tablet vomiting #30 tabs spironolactone 50 mg tablet 50 mg PO BID #180 tabs 12/04/24 ketorolac 10 mg tablet 10 mg PO Q8H PRN #15 tabs 12/16/24 tamsulosin 0.4 mg capsule (Flomax) 0.4 mg PO DAILY #14 caps 12/16/24 acetaminophen 325 mg tablet 975 mg (3 x 325 mg) PO ONCE PRN 12/30/24 (Tylenol) #60 tabs cefdinir 300 mg capsule 300 mg PO BID #14 caps 12/30/24 ibuprofen 600 mg tablet 600 mg PO Q6H PRN #30 tabs 12/30/24 ondansetron 4 mg disintegrating 4 mg PO Q6H PRN #20 tabs 12/30/24 tablet Allergies Allergy/AdvReac Type Severity Reaction Status Date / Time codeine Allergy Severe Hives Verified 12/30/24 15:17 kiwi Allergy Intermediate Swelling/Ed Verified 12/30/24 15:17 john ciprofloxacin (From Cipro) AdvReac Intermediate vomiting Verified 12/30/24 15:17 General Stated Complaint: Nausea/Vomit/Diar JOSELIN: 3 Course Vital Signs Vital signs: Vital Signs Temperature 37.0 C 12/30/24 15:14 Pulse 109 H 12/30/24 15:14 Respiratory Rate 18 12/30/24 15:14 Blood Pressure 145/99 H 12/30/24 15:14 Pulse Oximetry 98 12/30/24 15:14 Temperature 36.8 C 12/30/24 15:19 Temperature Source Oral 12/30/24 15:19 Pulse 109 H 12/30/24 15:19 Respiratory Rate 18 12/30/24 15:19 Blood Pressure 145/99 H 12/30/24 15:19 Blood Pressure Position Sitting 12/30/24 15:19 Pulse Oximetry 98 12/30/24 15:14 Oxygen Delivery Method Room Air 12/30/24 15:14 Oxygen Flow Rate 0 12/30/24 15:14 Pain Level 10 12/30/24 15:14 PFSH All Active Problems (Updated 12/30/24 @ 17:50 by Tay Hernandez MD) Abdominal pain (Acute) Fever (Acute) Nausea & vomiting (Acute) Acute flank pain (Acute) COVID (Acute) Cough (Acute) Chest pain (Acute) Pneumonia (Acute) Allergies (Acute) Pyelonephritis (Acute) Chest pain (Acute) Pharyngitis (Acute) Epigastric abdominal pain (Acute) Viral syndrome (Acute) Migraine with aura and without status migrainosus (Acute) Severe concussion (Acute 02/22/17) Psoriasis (Acute 09/13/17) Moderately severe depression (Acute 02/22/17) Anxiety and depression (Acute 07/24/17) Medical History Congenital [id number] reflux Family History Mother Depression Hyperlipidemia Father Depression Brother Asthma ADHD Maternal Grandfather Heart disease Maternal Grandmother Heart disease Brother Autism Paternal Grandfather No problems noted. Paternal Grandmother Glaucoma Social History Smoking/Tobacco Use Status: Never Smoking risk assessment performed?: Yes Alcohol Intake: current Alcohol Intake frequency: holidays/special occasions only Alcohol type: beer and hard liquor Drug use: Never Substance use type: does not use Caregiver/Support person: No Household members: spouse and significant other Housing: house Communication Needs: None current occupation: [employer] Pets and animals: Yes Pets and animals: cat(s) and dog(s) Sexually active: Yes Do you think of yourself as: straight/heterosexual Current gender identity: female What is your relationship status?: living with partner How often do you talk on the phone with friends or family?: three or more times per week How often do you get together with friends or relatives?: three or more times per week How often do you attend moravian or jew services?: decline to answer Do you belong to any clubs or organized social groups?: yes Panel score (0-1 are the most socially isolated patients): 3 What type of physical activity do you participate in: walking Duration: 15-30 minutes/day Frequency: 1-2 times per week Kendal/Latter Day: Muslim Special kendal needs: No Seatbelt use: always Helmet use: Yes Helmet use: always Drive intox or ride w/intox pizza delivery driver: No Do you feel safe at home: Yes Do you feel safe in your relationship?: Yes Female Reproductive History Menstrual control method: none PAWSS Have you Been Recently Intoxicated or Drunk Within the Last 30 days?: No Have you Ever Experienced Previous Episodes of Alcohol Withdrawal?: No Have you ever Experienced Withdrawal Seizures?: No Have you ever Experienced Delirium Tremens(DT)s?: No Have you ever undergone Alcohol Rehabilitation Treatment (i.e, inpt ot outpatient treatment programs)?: No Have you ever Experienced Blackouts?: No Have you ever Combined Alcohol with other Downers within the last 90 days?: No Have you ever Combined Alcohol with any other Substance of Abuse during the last 90 days?: No Positive Blood Alcohol level on Presentation? [PCS.BAL]: No Evidence of Increased Autonomic Activity (i.e. HR>120, tremor, sweating, agitation, nausea)?: No Result: 0
[2024-12-30] MEDS: ACETAMINOPHEN 1,000 MG/100 ML BAG 400 MG IVPB (15:30)
[2024-12-30 15:50] LABS: Abs Immature Grans 0.02 10^3/uL (0.0-0.06); HCT 46.1 % (36.0-46.0); HGB 15.9 g/dL (11.2-15.7); Immature Grans % 0.2 %; MCH 29.4 pg (27.0-33.0); MCHC 34.5 % (32.0-36.0); MCV 85 fL (80-95); MPV 9.3 fL (8.0-11.0); Platelet Count 292 10^3/uL (130-400); RBC 5.40 10^6/uL (3.93-5.22); RDW 11.8 % (11.7-14.6); RDW-SD 36.4 fL; WBC 11.15 10^3/uL (4.4-10.8)
[2024-12-30] MEDS: Droperidol 5 MG/2 ML VIAL 2.5 MG IVP (15:56)
[2024-12-30] MEDS: Normal Saline 1,000 ML 1000 ML IV (15:56)
[2024-12-30 16:06] LABS: ALT 32 U/L (14-59); AST 18 U/L (15-37); Albumin 4.7 g/dL (3.4-5.0); Alkaline Phosphatase 79 U/L (46-116); Anion Gap 11.6 mmol/L (3-11); BUN 15 mg/dL (7-18); Bilirubin, Total 0.6 mg/dL (0.2-1.0); CO2 27.4 mmol/L (21.0-32.0); Calcium 9.8 mg/dL (8.5-10.1); Chloride 99 mmol/L (98-107); Estimated GFR 62.06 (mL/min/1.73m2); Glucose 87 mg/dL (74-106); Lipase 33 U/L (<78); Potassium 3.9 mmol/L (3.5-5.1); Sodium 138 mmol/L (136-145); Total Protein 8.7 g/dL (6.4-8.2)
[2024-12-30] MEDS: cefTRIAXone 2 GM/50 ML BAG IVPB (16:45)
[2024-12-30 17:07] LABS: Glucose Negative (Negative)
[2024-12-30 17:10] LABS: HCG Qual (Urine) Negative
[2024-12-30 17:14] LABS: RBC 0-2 HPF (0-2); WBC 0-2 HPF (0-5)
[2024-12-30] MEDS: Omnipaque 350 MG/ML 100 ML BTL IJ (17:53)
[2024-12-30] MEDS: Normal Saline - Diluent 50 ML VIAL IJ (17:53)
[2024-12-30] MEDS: Normal Saline Flush 10 ML SYR IVP (17:54)
== END 2024-12-30 18:03 | disposition left against medical advice (07) ==
PROVIDERS: Emergency Provider General Practice; PCP Nurse Practitioner Family
DX: R11.2 Nausea with vomiting, unspecified (principal); R50.9 Fever, unspecified; R10.9 Unspecified abdominal pain; N10 Acute pyelonephritis
CPT/HCPCS: 36415; 80053; 81025; 83690; 96365; 96367; 96372; 96375; 99284; 81003; 81015; 83605; 85025; J0131; J0696; J1790; J3490

== ENCOUNTER 2025-03-06 11:52 | Outpatient (CLI) | payer BC, SELFPAY ==
[2025-03-06 12:04] LABS: Abs Immature Grans 0.02 10^3/uL (0.0-0.06); HCT 42.5 % (36.0-46.0); HGB 14.6 g/dL (11.2-15.7); Immature Grans % 0.3 %; MCH 29.4 pg (27.0-33.0); MCHC 34.4 % (32.0-36.0); MCV 86 fL (80-95); MPV 9.3 fL (8.0-11.0); Platelet Count 287 10^3/uL (130-400); RBC 4.97 10^6/uL (3.93-5.22); RDW 11.9 % (11.7-14.6); RDW-SD 36.9 fL; WBC 6.58 10^3/uL (4.4-10.8)
[2025-03-06 12:28] LABS: Hemoglobin A1C 5.3 % (<5.7)
[2025-03-06 12:41] LABS: ALT 21 U/L (14-59); AST 15 U/L (15-37); Albumin 4.0 g/dL (3.4-5.0); Alkaline Phosphatase 93 U/L (46-116); Anion Gap 7.6 mmol/L (3-11); BUN 16 mg/dL (7-18); Bilirubin, Total 0.2 mg/dL (0.2-1.0); CO2 27.4 mmol/L (21.0-32.0); Calcium 9.2 mg/dL (8.5-10.1); Chloride 104 mmol/L (98-107); Glucose 134 mg/dL (74-106); Potassium 3.8 mmol/L (3.5-5.1); Sodium 139 mmol/L (136-145); TSH (W/Ref FT4) 1.38 uIU/mL (0.36-3.74); Total Protein 7.8 g/dL (6.4-8.2)
[2025-03-06 12:52] LABS: Iron 77 ug/dL (50-170); Total Iron Binding Capacity 323 ug/dL (250-450); Transferrin Sat 24 % (15-50)
== END 2025-03-06 11:53 | disposition home or self-care (01) ==
LOC: LBO 11:53
PROVIDERS: PCP Nurse Practitioner Family; Visit Provider Nurse Practitioner Family
DX: R55 Syncope and collapse (principal); R11.0 Nausea; Z51.81 Encounter for therapeutic drug level monitoring
CPT/HCPCS: 36415; 80053; 83036; 83516; 83540; 83550; 84443; 85025

== ENCOUNTER 2025-03-20 08:20 | Outpatient (CLI) | payer BC, SELFPAY | END 2025-03-20 08:21 | disposition home or self-care (01) | PROVIDERS: PCP Nurse Practitioner Family; Visit Provider Nurse Practitioner Family | DX: R55 Syncope and collapse (principal) | CPT/HCPCS: 93246 ==